=== PATIENT | female | born 1945 | race Two or more races ===

== ENCOUNTER 2021-01-10 15:47 | Inpatient (IN) | payer MEDICARE, OTHER ==
[~2021-01-10] VITALS: Ht 162.6 cm; Wt 54.3 kg
[2021-01-10] MEDS ORDERED: ASPI-889 PO (16:11)
[2021-01-10] MEDS ORDERED: BUPR100T8 PO (16:11)
[2021-01-10] MEDS ORDERED: MIRA25TA PO (16:11)
[2021-01-10] MEDS ORDERED: METO-239 PO (16:11)
[2021-01-10] MEDS ORDERED: SERT25TA PO (16:11)
[2021-01-10] MEDS ORDERED: DONE5TAB7 PO (16:11)
[2021-01-10] MEDS ORDERED: AMLO-186 PO (16:11)
--- NOTE | 2021-01-10 16:31 | NUR ---
NSG NOTE; NEGATIVE COVID TEST FROM 01/07/21 AT [facility] WITH PAPER COPY OF RESULTS IN CHART
[2021-01-10 19:15] VITALS: BP 161/74
--- NOTE | 2021-01-10 19:50 | NUR ---
PT ADMITTED TO RM 107 FOR SBHU 48HR HOLD PENDING COVID RESULTS. PT EXPRESSED FEELINGS OF ANGER WHEN WHEELED INTO ROOM. WHEN THIS NURSE DISCUSSED WHY PT IS HERE AND POC. PT VERBALIZED UNDERSTANDING. PT WAS GIVEN DINNER TRAY AND IS NOW RESTING COMFORTABLY IN BED. WILL CONTINUE TO MONITOR.
[2021-01-10] MEDS: buPROPion SR 100 MG TABLET.SA. PO SCH (20:55)
[2021-01-10] MEDS: METOPROLOL SUCC 24HR ER 25 MG TAB.ER.24H. PO SCH (20:55)
[2021-01-10 22:17] VITALS: BP 92/55
[2021-01-11 05:05] VITALS: BP 128/71
--- NOTE | 2021-01-11 05:22 | EKG ---
[address] [address] Test Date: 2021-01-11 Test Time: 04:57:10 Pat Name: SALLY AGRAWAL Department: Room: [facility] A Gender: F Security Rep: : [id number] Requested By: MARIUSZ EDMOND Order Number: [id number] Reading MD: Measurements Intervals [place] Rate: 61 P: 39 CT: 142 QRS: 37 QRSD: 90 T: 55 QT: 410 QTc: 414 Interpretive Statements SINUS RHYTHM NORMAL ECG RI6.01 No previous ECG available for comparison
[2021-01-11 06:25] LABS: BILIRUBIN,URINE NEG (NEG); CLARITY,URINE CLEAR; COLOR,URINE YELLOW; GLUCOSE,URINE NEG (NEG); NITRITE,URINE NEG (NEG); UROBILINOGEN,URINE 0.2 mg/dL (0.2 mg/dL)
[2021-01-11 06:26] LABS: BACTERIA,URINE FEW /HPF (0-FEW); SQUAMOUS EPITHELIAL CELL,UR MANY /LPF
[2021-01-11 07:16] LABS: HEMATOCRIT 37.5 % (36.0-47.0); HEMOGLOBIN 12.1 g/dL (12.0-15.5); RED BLOOD COUNT 4.35 x10^6/uL (3.50-5.40); RED CELL DISTRIBUTION WIDTH 14.6 % (11.5-14.5); WHITE BLOOD COUNT 4.8 x10^3/uL (4.0-11.0)
[2021-01-11 07:24] LABS: ALBUMIN 2.8 g/dL (3.4-5.0); ALBUMIN/GLOBULIN RATIO 0.8 (1.0-1.7); CALCIUM 9.2 mg/dL (8.5-10.1); CREATININE 1.2 mg/dL (0.6-1.0); GFR 43.9; MAGNESIUM 2.3 mg/dL (1.8-2.4); POTASSIUM 3.7 mmol/L (3.5-5.1); TOTAL BILIRUBIN 0.3 mg/dL (0.2-1.0); TOTAL PROTEIN 6.2 g/dL (6.4-8.2)
[2021-01-11] MEDS: ASPIRIN ENTERIC COATED 81 MG TABLET.DR. PO SCH (08:29)
[2021-01-11] MEDS: SERTRALINE 25 MG TABLET. PO SCH (08:29)
[2021-01-11] MEDS: buPROPion SR 100 MG TABLET.SA. PO SCH ×2 (08:30→20:29)
[2021-01-11] MEDS: MIRABEGRON 25 MG TAB.ER.24H PO SCH (08:30)
[2021-01-11] MEDS: DONEPEZIL HCL 5 MG TABLET. PO SCH (08:30)
[2021-01-11] MEDS: amLODIPine BESYLATE 5 MG TABLET PO SCH (08:30)
[2021-01-11 10:37] VITALS: BP 150/75
[2021-01-11] MEDS ORDERED: OLANZapine 2.5 MG TABLET PO PRN (13:30)
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
[2021-01-11 16:17] VITALS: BP 146/75
--- NOTE | 2021-01-11 17:40 | PN ---
DATE: 01/11/2021 SUBJECTIVE: The patient is resting, slightly propped up in bed, in no apparent distress. She is awake, alert, continued to be confused, paranoid, delusional, at times combative, yelling, but denied any complaint. PHYSICAL EXAMINATION: GENERAL: When I examined her, she was somewhat pale, but no jaundice, cyanosis or thyromegaly. No jugular venous distention or limb edema. VITAL SIGNS: Her heart rate was 78, blood pressure was 150/75, temperature 97.9, respiratory rate was 16, and oxygen saturation was 97%. HEAD, EYES, EARS, NOSE AND THROAT: Showed normocephalic, atraumatic. NECK: Supple. HEART: Showed normal first and second heart sounds. No gallop or murmur. CHEST: Clear to auscultation. No crepitation or rhonchi. ABDOMEN: Slightly distended, soft, nontender. NEUROLOGIC: She is awake, alert, but confused, agitated, paranoid. All her cranial nerves are intact. She moves extremities without difficulty, although she is able to ambulate with assistance. She is apparently a high fall risk. LABORATORY DATA: She has had lab work done, which showed a serum sodium 142, potassium 3.7, chloride 107, bicarbonate 25, anion gap of 10, BUN 27, creatinine is 1.2, estimated GFR was 44 mL per minute, her glucose was 93, calcium was 9.2, magnesium was 2.3. Total bilirubin, AST, ALT, alkaline phosphatase were normal. Total protein 6.2, albumin was 2.8. Her white cell count was 4800, hemoglobin was 12, hematocrit 37, MCV 86 and platelet count 265,000. Her D-dimer was 2.23 mg/dL. Her urinalysis showed the urine was yellow, clear with a pH of 5.5, specific gravity 1.005. The urine was negative for protein, glucose, ketones, blood, nitrite and bilirubin as well as negative for leukocyte esterase, 1-2 rbc's, 1-4 wbc's, and no bacteria. Her COVID-19 by PCR is still pending at the time of this dictation. Her EKG showed that the patient was in sinus rhythm with normal P waves, RI interval, QRS duration and corrected QT interval. In summary, this is a 75-year-old who was referred to [facility] for screening for COVID-19 from [facility] as the patient has been combative towards her family, suspicious, paranoid towards her family, unable to care for herself at home. She has been insisting to go home with increasing confusion, poor intake of meals, irritable, argumentative and cooperative with increasing confusion. Once her COVID-19 test becomes available and if it is negative, the patient will be transferred to [facility] for inpatient psychiatric stabilization. ANGEL JONES MD DR: PHILL/robin JOB#: [id number] / [id number]
[2021-01-11 19:55] VITALS: BP 174/72
[2021-01-11] MEDS: METOPROLOL SUCC 24HR ER 25 MG TAB.ER.24H. PO SCH (20:24)
--- NOTE | 2021-01-12 04:33 | NUR ---
Pt awake and restless through much of the night. Pt continually calling out and throwing legs over bed rails. Staff frequently in room to calm pt and music playing to aid sleep, unsuccessful. Pt believes she is in a stranger's home in [place], demanding to see a phone book and call the police. Pt increasingly agitated with attempts to reorient to hospital and situation. Pt suspicious of staff and not willing to take PRN zydis whole. Pt given PRN zydis dissolved in liquid after much encouragement. Addendum: 01/12/21 at 0608 by RAE LIAO RN PRN Zydis effective. Pt settled down and has been resting with eyes closed for approx. 45 mins.
[2021-01-12] MEDS: SERTRALINE 25 MG TABLET. PO SCH (08:07)
[2021-01-12] MEDS: ASPIRIN ENTERIC COATED 81 MG TABLET.DR. PO SCH (08:07)
[2021-01-12] MEDS: DONEPEZIL HCL 5 MG TABLET. PO SCH (08:07)
[2021-01-12] MEDS: MIRABEGRON 25 MG TAB.ER.24H PO SCH (08:09)
[2021-01-12] MEDS: buPROPion SR 100 MG TABLET.SA. PO SCH (08:09)
[2021-01-12 08:18] VITALS: BP 134/69
[2021-01-12 08:20] VITALS: BP 134/69
[2021-01-12] MEDS: amLODIPine BESYLATE 5 MG TABLET PO SCH (08:20)
--- NOTE | 2021-01-12 11:11 | NUR ---
TEST FOR COVID 19 IS NEGATIVE. NURSING CONSUMER PRODUCT ADVISOR NOTIFIED.
--- NOTE | 2021-01-12 11:49 | NUR ---
PATIENT IS DISCHARGED TO [facility] FOR FURTHER EVALUATION AND TREATMENT. REPORT GIVEN TO YANI WALDEN. PATIENT LEFT ROOM 107 VIA W/C ACCOMP BY LEIDY GRIMM.
[2021-01-12 14:40] LABS: THYROID STIM HORMONE (TSH) 2.738 uIU/mL (0.358-3.740)
== END 2021-01-12 11:45 | DRG 392 ==
LOC: 1 SOUTH 18:45
PROVIDERS: ADMIT Hospitalist; ATTEND Hospitalist
DX: K21.9 Gastro-esophageal reflux disease without esophagitis (principal); E44.0 Moderate protein-calorie malnutrition; F03.90 Unspecified dementia, unspecified severity, without behavioral disturbance, psychotic disturbance, mood disturbance, and anxiety; E78.5 Hyperlipidemia, unspecified; F32.9 Major depressive disorder, single episode, unspecified; F41.9 Anxiety disorder, unspecified; I12.9 Hypertensive chronic kidney disease with stage 1 through stage 4 chronic kidney disease, or unspecified chronic kidney disease; I35.9 Nonrheumatic aortic valve disorder, unspecified; N18.30 Chronic kidney disease, stage 3 unspecified; Z20.822 Contact with and (suspected) exposure to COVID-19; Z80.0 Family history of malignant neoplasm of digestive organs; Z82.3 Family history of stroke; Z82.49 Family history of ischemic heart disease and other diseases of the circulatory system; Z87.891 Personal history of nicotine dependence; Z88.1 Allergy status to other antibiotic agents; Z88.0 Allergy status to penicillin; Z88.8 Allergy status to other drugs, medicaments and biological substances; Z60.2 Problems related to living alone; Z68.20 Body mass index [BMI] 20.0-20.9, adult
CPT/HCPCS: 36415; 80053; 80061; 81001; 82306; 82607; 83036; 83735; 84443; 85027; 85379; 86592; 93005; U0003

== ENCOUNTER 2021-01-12 11:50 | Inpatient (IN) | payer MEDICARE, OTHER ==
[~2021-01-12] VITALS: Ht 162.6 cm; Wt 61.2 kg
[2021-01-12 11:45] VITALS: BP 97/63
--- NOTE | 2021-01-12 11:45 | NUR ---
Admission Note with Justification for Admission to [facility] Patient admitted to [facility] for protective oversight for emergency stabilization of acute psychiatric crisis. Pt admitted from: [facility]/ [address] [place] [address] Mode of arrival: wheelchair Accompanied By: [facility] Staff Precipitating behaviors that initiated intake and admission: combative towards family, suspicious/paranoid towards family, unable to care for self at home, but insists on going home, increased confusion, poor intake of meals, irritable, argumentative, uncooperative Description of failure of out patient attempts at stabilization in previous setting list behavior and medication trials: ER on 01/06/21, donepezil, zoloft, wellbutrin Behaviors and assessment findings upon admission: Pt is angry upon admission because she thought she was going to be discharging home from [address] [place] [address], she does not want to be a patient anymore "Can't I just sign an against medical advice paper?" Pt is oriented to herself and year. She believes she is at [facility] and she says she is in the hospital because "someone is an idiot." She is cooperative with assessment and denies pain at this time. Will continue to monitor. Plan: Admit for protective oversight for adjustment and stabilization of medications, behaviors and mood. Intense treatment regimen including groups, medication adjustments, therapy, consistent regimen for ADL's, self care, and sleep hygiene. Daily monitoring by Inpatient staff, Psychiatry, and Medical Physician.
[~2021-01-12 11:50] MED LIST: AMLO-186 PO; ASPI-889 PO; BUPR100T8 PO; DONE5TAB7 PO; METO-239 PO; MIRA50TA PO; SERT25TA PO
[2021-01-12] MEDS ORDERED: MAGNESIUM HYDROXIDE 2,400 MG/30 ML ORAL.SUSP. PO PRN (15:30)
[2021-01-12] MEDS ORDERED: METHYL SALICYLATE/MENTHOL TOPICAL OINTMENT 57GM TUBE. TP PRN (15:30)
[2021-01-12] MEDS ORDERED: ACETAMINOPHEN 325 MG TABLET PO PRN (15:30)
[2021-01-12] MEDS ORDERED: MAG HYDROX/AL HYDROX/SIMETH 30 ML ORAL.SUSP PO PRN (15:30)
[2021-01-12 16:30] VITALS: BP 129/72
--- NOTE | 2021-01-12 21:03 | PDOC ---
Exam Note: Jose R Note: Please also refer to the separate dictated note~for this date of service dictated separately.~Patient seen individually. Discussed the patient with Nursing staff reviewed the chart.~Reviewed interim history and current functioning. Reviewed vital signs,~Labs/ Radiology~and current medications noted below. Continue current treatment with the changes noted in the dictated addendum note Assessment: Vital Signs/I&O: Vital Signs Date Time Temp Pulse Resp B/P (MAP) Pulse Ox O2 Delivery O2 Flow Rate FiO2 01/12/21 16:30 98.0 76 18 129/72 (91) 94 Current Medications: Meds: Current Medications Medications (Trade) Dose Ordered Sig/Lita Route PRN Reason Start Time Stop Time Status Last Admin Dose Admin Amlodipine Besylate (Norvasc) 5 mg DAILY PO 01/13/21 09:00 Aspirin (Aspirin Enteric Coated) 81 mg DAILY PO 01/13/21 09:00 Bupropion HCl (Wellbutrin Sr) 100 mg DAILY PO 01/13/21 09:00 Donepezil HCl (Aricept) 5 mg DAILY PO 01/13/21 09:00 Metoprolol Succinate (Toprol Xl) 12.5 mg HS PO 01/12/21 21:00 Sertraline HCl (Zoloft) 25 mg DAILY PO 01/13/21 09:00 Mirabegron (Myrbetriq) 50 mg DAILY PO 01/13/21 09:00 Acetaminophen (Tylenol) 650 mg PRN Q6HRS PRN PO MILD PAIN / TEMP > 100.3'F 01/12/21 15:30 Multi-Ingredient Ointment (Analgesic [place]) 1 mercedez PRN QID PRN TP MUSCLE PAIN 01/12/21 15:30 Al Hydroxide/Mg Hydroxide (Mylanta Plus Xs) 15 ml PRN AFTMEALHC PRN PO DYSPEPSIA 01/12/21 15:30 Magnesium Hydroxide (Milk Of Magnesia) 2,400 mg PRN QHS PRN PO CONSTIPATION 01/12/21 15:30 I have reviewed the current psychotropics carefully including drug interactions. Risk benefit ratio favors no change other than as noted in my dictated progress note. SHIRLEY FRANKLIN MD Jan 12, 2021 21:03
[2021-01-12] MEDS: METOPROLOL SUCC 24HR ER 25 MG TAB.ER.24H. PO SCH (21:33)
--- NOTE | 2021-01-12 22:15 | HP ---
ADMIT DATE: 01/12/2021 ADMISSION HISTORY/EVALUATION IDENTIFYING DATA: The patient is a 75-year-old female referred to us from [facility] where she presented from home and admitted by her son, Santos, who is her DPOA. The patient had been combative towards the family. She is suspicious and paranoid towards family who have been unable to take care of her. Even while at home, she has been insisting that she wants to go home and has had increased confusion, poor intake of meals, irritable, argumentative, uncooperative. She was seen at [facility] by Dr. Baker, psychiatrist, who initiated her power of trade mark attorney and recommended inpatient psychiatric stabilization because of behaviors that are dangerous, unmanageable, out of control and had failed outpatient psychiatric interventions. CHIEF COMPLAINT: "Oh, the year. The year is 1980. 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 She has been residing at home with her family recently getting more paranoid, agitated, aggressive, disruptive and unmanageable. She has had sleep and appetite changes. No active suicidal or homicidal ideation. PAST PSYCHIATRIC HISTORY: As above. MEDICAL HISTORY: Positive for hypertension, hyperlipidemia, GERD, chronic kidney disease stage 3, kyphosis. ALLERGIES: CEPHALOSPORIN, IODINE, PROVIDONE, KEFLEX, LOVASTATIN, AMOXICILLIN. ACCU-CHEKS: None. CODE STATUS: DNR. DIET: Regular. Takes medications whole. Ambulates with walker. CURRENT PSYCHOTROPICS: Wellbutrin-SR 100 mg a day, Aricept 5 mg a day, Zoloft 25 mg a day. FAMILY HISTORY: Noncontributory. SOCIAL HISTORY: No history of alcohol, drug abuse, physical, sexual or elder abuse. She is not known to be a perpetrator. REACTION TO HOSPITALIZATION: The patient oblivious of surroundings. ASSETS: Supportive family. REVIEW OF SYSTEMS: No CV, , pulmonary, eye, ENT system symptoms on review. Ambulation impaired with walker. She remains on a regular diet. MENTAL STATUS EXAMINATION: The patient is oriented to herself. Insight, judgment, recent and remote memory, attention, concentration, fund of knowledge poor, consistent with her diagnoses. IMPRESSION: Major neurocognitive disorder, Alzheimer, vascular with delusion, depression, behavioral disturbance; anxiety disorder, unspecified; impulse control disorder, unspecified. Rest as above. PLAN: Admit to Geropsychiatry Unit at [facility]. I will see the patient daily individually from a psychiatric standpoint. Medical followup with Dr. Boggs/Dr. Lau. Continue the patient on her current psychotropics. Observe baseline, adjust as clinically indicated. Estimated length of stay 10-12 days. DISPOSITION: Plans possible halfway placement. SHIRLEY FRANKLIN MD DR: TRE/robin JOB#: [id number] / [id number]
--- NOTE | 2021-01-13 00:34 | NUR ---
Nursing Note The patient was located in her room laying in bed sleeping when approached for her medication and assessment. The patient was drowsy during her assessment and was only able to answer name. The patient took her medication whole. The patient is currently sleeping.
[2021-01-13 06:10] VITALS: BP 128/68
[2021-01-13 06:30] LABS: BASO # 0.1 x10^3/uL (0.0-0.2); BASO % 1 % (0-3); EOS # 0.1 x10^3/uL (0.0-0.7); EOS % 1 % (0-3); HEMOGLOBIN 13.2 g/dL (12.0-15.5); LYMPH # 1.3 x10^3/uL (1.0-4.8); LYMPH % 26 % (24-48); MEAN CORPUSCULAR HEMOGLOBIN 28 pg (25-35); MEAN CORPUSCULAR HGB CONC 32 g/dL (31-37); MEAN CORPUSCULAR VOLUME 87 fL (79-100); MONO # 0.4 x10^3/uL (0.0-1.1); MONO % 7 % (0-9); NEUT # 3.2 x10^3uL (1.8-7.7); NEUT % 65 % (31-73); PLATELET COUNT 308 x10^3/uL (140-400); RED BLOOD COUNT 4.72 x10^6/uL (3.50-5.40); RED CELL DISTRIBUTION WIDTH 14.5 % (11.5-14.5)
[2021-01-13 06:54] LABS: ALBUMIN 3.3 g/dL (3.4-5.0); ALBUMIN/GLOBULIN RATIO 0.9 (1.0-1.7); CALCIUM 9.5 mg/dL (8.5-10.1); CREATININE 1.5 mg/dL (0.6-1.0); GFR 33.9; POTASSIUM 4.1 mmol/L (3.5-5.1); TOTAL BILIRUBIN 0.3 mg/dL (0.2-1.0); TOTAL PROTEIN 7.1 g/dL (6.4-8.2)
[2021-01-13] MEDS: DONEPEZIL HCL 5 MG TABLET. PO SCH (08:13)
[2021-01-13] MEDS: amLODIPine BESYLATE 5 MG TABLET PO SCH (08:13)
[2021-01-13] MEDS: ASPIRIN ENTERIC COATED 81 MG TABLET.DR. PO SCH (08:13)
[2021-01-13] MEDS: MIRABEGRON 25 MG TAB.ER.24H PO SCH (08:13)
[2021-01-13] MEDS ORDERED: buPROPion SR 100 MG TABLET.SA. PO SCH (09:00)
[2021-01-13] MEDS ORDERED: SERTRALINE 25 MG TABLET. PO SCH (09:00)
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
[2021-01-13 11:09] LABS: THYROXINE 7.4 ug/dL (4.5-12.0)
--- NOTE | 2021-01-13 11:45 | NUR ---
SW contacted pt son Johnathan in attempts to discuss his wishes for pt to not be on psychiatric medications and why the admission. Johnathan, like his brother, reports that they had initially requested rehab for pt in order to get pt physically stronger and maintain at home. However, the referral ended up at [place]. And while his brother agreed to the admission, Johnathan did not see fit as he does not want pt placed on any psychotropic medications. SW questioned what his goal was, as if pt was not allowed to be stopped or started on medications, then pt would need to discharge [facility]. Pt questioned what meds pt was on and SW reported: Wellbutrin XL, Zoloft and Aricept. Pt son is adamant that pt was not on these medication and SW assured him based off the med list received, pt came in on these medications and all the psychiatrist did was continue them. Pt son then placed SW on hold and conferenced in pt pharmacy to question the medication pt is currently on. The pharmacist confirmed that pt was on Wellbutrin XL, Zoloft and Aricept. Pt son reports not being aware of the Zoloft and the pharmacist reported that it was filled 11/21/20 and 12/16/20. Pt son believes that when pt behaviors started it was in November and the culprit was the Zoloft. SW explained that with Dementia, if she was having trouble prior to, the Zoloft should be able to help calm pt behaviors down and would just need a potential dosage adjustment. However, in Johnathan's mind, if pt behaviors increased and the Zoloft was the new culprit, the Zoloft needed to be stopped. "If you were on Augmentin and then ate dinner one day, with a sudden onset of upset stomach, wouldn't you think it would be the Augmentin". SW answered back "no, it could be food poisoning or a sudden onset of a stomach bug". Pt son questioned how long it took to get Zoloft out of pt system. SW explained being on the lowest dose of Zoloft not long. Pt son questioned if pt needed to be watched coming off the Zoloft and SW explained not necessarily in which pt son felt like SW made it seem no big deal that the Zoloft was being stopped without pt being "watched" stating "That's a big medication change". SW then responded "she was started on Zoloft in November, on an outpt basis. If she went to her doctor last month or a few months from now and wanted off of it, they wouldn't admit her to a psych facility to stop it. Medications are stopped and started on an outpt basis all the time. Discharging her today, tomorrow or whenever, would be no different". LESLIE explained to pt son that at the end of the day, if he wasn't going to allow the "freedom" of allowing the team to start specific medications that could stabilize pt behaviors and make her appropriate enough, NOT zombie-state, to remain at home, then there was no need for pt to be here. For the purposes of Medicare, pt is burning days that she can't afford to burn and essentially it will be a disservice for her to remain on the unit when she isn't able to participate in the program as designed. LESLIE questioned when he would be able to pick pt up. Pt son reports that they just got a caregiver approved and needed to sign paperwork; therefore, either he or his brother will pick pt up on Saturday. LESLIE will notify the psychiatrist and nursing staff in preparation and asked the son to call with a picker/puller time once he speaks to his brother and makes those arrangements.
--- NOTE | 2021-01-13 13:20 | NUR ---
ACTIVITY THERAPY ASSESSMENT Completed based on observation and interview. Pt. was in her room, in bed, with the lights off and curtains closed, awake and calm. CEMENT STORAGE WORKER greeted Pt. and Pt. asked if CEMENT STORAGE WORKER worked here and went on about walking her dog, taking her to the Vet but then somehow got here and was worried her dog was being mistreated and was going to be put down without her knowing. Pt. seemed to respond well when CEMENT STORAGE WORKER reassured her she was there to help her. Pt. went on to talk about frustrations with staff here, claimed she was going to have york left on her arm from them. Pt. was tearful off an on during assessment. She threatened to go after people if they put her dog down and thought some staff here needed to be fired. She questioned where her purse was and before too long, she looped back to the vet/ dog, staff interaction and finally her purse, again. After more reassurance, Pt. was about to answer some assessment questions. She said she was "68 years old" and her date was "1945." She shared she was born in [place], [place] and grew up in [place]. 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 She talked about having two sons, Johnathan and Mohan. She said she spends time watching a little tv, playing with her dog "Tata", walking, reading (requested [employer]), and enjoys country/western and hindu music. She named one old friend, Irina Huang, but hadn't talked to her in years. Pt. was really concerned that no one would believe her about the dog and the issues with the staff, thought staff would just gang up on her and come up with a story. CEMENT STORAGE WORKER offered more reassurance to which Pt. responded well. CEMENT STORAGE WORKER offered a couple magazines and Pt. was able to pick a a few to keep in her room. The interview ended on a calm and peaceful note where both CEMENT STORAGE WORKER and Pt. thanked the other. Initial goal aimed to increase engagement and relaxation: Pt. will participate in at least three Activity Therapy groups per week.
--- NOTE | 2021-01-13 13:23 | TX PLAN ---
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 Additional Admission Comments: According to the intake, pt is combative towards family, suspicious, paranoid towards family, unable to care for self at home but insists on going home, increased confusion, poor intake of meals, irritable, argumentative, uncooperative Problems Active Problems: irritable uncooperative with staff Inactive Problems: Medication compliant Pt Strengths/Limitations Ability for [place]: Poor Cognitive Functioning/Ability: Fair Communication Skills/Ability: Fair Financial Resources: Fair Insight/Judgement: Poor Intellectual Ability: Fair Physical Health: Fair Social Skills: Fair Stability in Family: Fair Stability in School/Work: Poor Verbal Skills: Fair Discharge Criteria Discharge Criteria: No need for close observ., Adequate arrangements @DC, Improved behavior, Improved mood/thought Preliminary Discharge Plan Preliminary DC Plan: Current Living Arrange., Home Special Precautions Fall Risk: Moderate Initial D/C Plan Pt to discharge home with private duty and community resources Identified Discharge Needs: Psychiatry Currently Utilized Resources Currently Utilized Resources/P: Primary Care Physician Identified Problems/Hx/Goals Objectives/Short-Term Goals Short Term Goals: Dec. Outbursts, Dec. Symp. Depression, Medication Stabilization, Promote Coping Skill Short Term Goals in Patient's: I need to get home Interventions/Frequency Staff Interventions/Frequency&: Psychiatrist to assess pt at least 3x per week for medication management. Social Work to asses pt at least 2x per week for identification of barriers to care and discharge planning. Nursing to monitor medication effects, behavioral management and completion of 15 minute checks. Encourage participation in group activities (if applicable) or 1:1 engagement based of Activity Dept goals. 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 Son does not wish for pt to start on any psychotropic medications. Treatment Plan Explained Patient/Data Management Manager had this treatment plan explained to him/her as indicated by the signature below and has been given the opportunity to ask questions and make suggestions: Date: Patient/Data Management Manager Signature: Patient/Data Management Manager Decline: No (Pt family is involved in pt care.) DEIRDRE VERGARA Jan 13, 2021 13:23
--- NOTE | 2021-01-13 14:03 | NUR ---
[facility] Social Work Discharge Planning Form Patient Name SALLY AGRAWAL Admit Date: 12 January 2021 DISCHARGE PLAN Discharge Destination: Pt to return home with private duty services Care Assessment: N/A Level II Assessment: N/A Transportation: Pt sons to make arrangements to pick pt up. Instructed to call prior to picking pt up with a time. Special Instructions/Notes: Please fax discharge orders, discharge medication list and discharge summary to the fax numbers listed below. DISCHARGE TO HOME: Address: [address] [place] [address] [place]; [place] [address] Responsible Republican: Santos Mann Beck Pharmacy: [facility] Contact Information: [address] [place] [address] [address] Psychiatrist/Mental Health Follow Up: None Primary Care Follow Up: Chelita Castle APRN Contact Information: [address] [place] [address] Appointment: Saturday12/30/20 @ 1120AM
[2021-01-13 15:33] VITALS: BP 117/69
--- NOTE | 2021-01-13 16:43 | NUR ---
Pt up in wc for meals and groups. Pt compliant with meds. Pt irritable in afternoon regarding wanting to go home and care for dog. States she has been gone x 2 weeks. Pt refused to have CT head. Nurse spoke to pt son at length regarding her stay here. Stated he was misinformed about the purpose of the pt stay here. Son plans to take pt on home Saturday.
[2021-01-13] MEDS ORDERED: CHOLECALCIFEROL (VITAMIN D3) 50,000 UNIT CAPSULE PO SCH (18:45)
--- NOTE | 2021-01-13 19:31 | CONS ---
DATE OF CONSULTATION: 01/13/2021 REASON FOR CONSULTATION: Medical management. HISTORY OF PRESENT ILLNESS: The patient is a 75-year-old female patient who was admitted originally as a transfer from [facility]. She has been combative towards her family, suspicious, paranoid towards her family. The patient is unable to care for herself at home, but insisted on going home with increasing confusion, poor oral intake of her meals, irritable, argumentative and uncooperative. Apparently, the patient has fallen, was seen in the Emergency Room of [facility] where she was brought in by her son. She recently was in a shelter facility, but was taken out of it, the reason for that is not clear. In the Emergency Room, she was found to have an unsafe disposition and likely cannot care of herself, has a dog at home that she take care of that and that she is worried about. Sshe is alert, oriented to person and place and aware of that if she does go home, she could fall and hit her head, which would be life threatening. However, she is insisting on going home. She was admitted to Med/Surg Unit and once out at [facility] and was screened for COVID and once that came back negative, she was [facility] for inpatient psychiatric stabilization. The patient is extremely confused, paranoid and delusional. PAST MEDICAL HISTORY: Significant for hypertension, hyperlipidemia, gastroesophageal reflux disease, stage 3 chronic kidney disease. She does have also aortic valve disease, has had an echocardiogram done on 03/13/2017 that showed that she has normal left ventricular size and function. Left ventricular ejection fraction at that time was 55-60%. 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 PAST SURGICAL HISTORY: Significant for appendectomy, bladder tie up, EGD, colonoscopy, open reduction and internal fixation, left ankle fracture, tonsillectomy and ureteroscopy. ALLERGIES: She is allergic to CEPHALOSPORIN, IODINE, KEFLEX, LOVASTATIN, PENICILLIN, AMOXICILLIN AND POVIDONE-IODINE. FAMILY HISTORY: Positive for stroke in her mother, colon cancer in her maternal grandmother and heart disease in a paternal grandmother. Her mother at the age of 83. Father at the age of 70. Her sister is still alive. SOCIAL HISTORY: She is a former smoker, quit in 07/26/2017. She never used smokeless tobacco. She does not drink alcohol. PHYSICAL EXAMINATION: GENERAL: On examining her, she looked well and was clearly in no apparent respiratory distress, pale, somewhat cachectic, but no jaundice or cyanosis. No lymphadenopathy, no thyromegaly. No jugular venous distension. No lower limb edema. VITAL SIGNS: Her heart rate was 63, blood pressure was 117/69, temperature 97.6, respiratory rate was 16, and oxygen saturation was 98%. HEAD, EYES, EARS, NOSE AND THROAT: Showed she is normocephalic, atraumatic. NECK: Supple. HEART: Normal first and second heart sounds. No gallop, rub or murmur. CHEST: Clear to auscultation. No crepitation or rhonchi. ABDOMEN: Distended, soft, nontender. NEUROLOGIC: She apparently moved extremities without difficulty and she ambulates with assistance. LABORATORY DATA: She has had lab work done which showed a white cell count 5000, hemoglobin 13, hematocrit 41, MCV 87, and platelet count 308,000. Her chemistry showed a serum sodium 146, potassium 4.1, chloride 110, bicarbonate 26, anion gap of 10, BUN 40, creatinine 1.5, estimated GFR was 33 mL per minute. Her glucose was 99, calcium was 9.5. Total bilirubin, AST, ALT, alkaline phosphatase were normal. Total protein was 7.1, albumin was 3.3. Her total T4, and total T3 are normal. Her serum triglycerides were 106, total cholesterol 200, LDL cholesterol 127, VLDL was 21, HDL was 52 and the ratio was 3. Her vitamin B12 was 400, 25-hydroxy vitamin D was 11.4. TSH was 2.738. Her D-dimer was 2.223. Urinalysis essentially unremarkable and her coronavirus by PCR was not detectable. IMPRESSION: In summary, this is a 75-year-old female patient, who is here for inpatient psychiatric stabilization based on account of being very combative towards family, suspicious and paranoid towards the family and unable to take care of herself at home. Medically, she has multiple medical problems including: A. Hypertension. B. Hyperlipidemia. C. Gastroesophageal reflux disease. D. Chronic kidney disease. E. Vitamin D deficiency. PLAN: My plan is to replenish her vitamin D. We will continue in the meanwhile with all her current medication and obviously monitor all her lab work and make any necessary recommendation. ANGEL JONES MD DR: PHILL/robin JOB#: [id number] / [id number]
[2021-01-13] MEDS: METOPROLOL SUCC 24HR ER 25 MG TAB.ER.24H. PO SCH (20:42)
--- NOTE | 2021-01-13 21:07 | PDOC ---
Exam Note: Jose R Note: Please also refer to the separate dictated note~for this date of service dictated separately.~Patient seen individually. Discussed the patient with Nursing staff reviewed the chart.~Reviewed interim history and current functioning. Reviewed vital signs,~Labs/ Radiology~and current medications noted below. Continue current treatment with the changes noted in the dictated addendum note Assessment: Vital Signs/I&O: Vital Signs Date Time Temp Pulse Resp B/P (MAP) Pulse Ox O2 Delivery O2 Flow Rate FiO2 01/13/21 15:33 97.6 63 16 117/69 (85) 98 Room Air I & O 01/12/21 01/12/21 01/13/21 15:00 23:00 07:00 Intake Total 480 ml Balance 480 ml Labs: Laboratory Tests Test 01/13/21 06:08 White Blood Count 5.0 x10^3/uL (4.0-11.0) Red Blood Count 4.72 x10^6/uL (3.50-5.40) Hemoglobin 13.2 g/dL (12.0-15.5) Hematocrit 41.0 % (36.0-47.0) Mean Corpuscular Volume 87 fL (79-100) Mean Corpuscular Hemoglobin 28 pg (25-35) Mean Corpuscular Hemoglobin Concent 32 g/dL (31-37) Red Cell Distribution Width 14.5 % (11.5-14.5) Platelet Count 308 x10^3/uL (140-400) Neutrophils (%) (Auto) 65 % (31-73) Lymphocytes (%) (Auto) 26 % (24-48) Monocytes (%) (Auto) 7 % (0-9) Eosinophils (%) (Auto) 1 % (0-3) Basophils (%) (Auto) 1 % (0-3) Neutrophils # (Auto) 3.2 x10^3uL (1.8-7.7) Lymphocytes # (Auto) 1.3 x10^3/uL (1.0-4.8) Monocytes # (Auto) 0.4 x10^3/uL (0.0-1.1) Eosinophils # (Auto) 0.1 x10^3/uL (0.0-0.7) Basophils # (Auto) 0.1 x10^3/uL (0.0-0.2) Sodium Level 146 mmol/L (136-145) H Potassium Level 4.1 mmol/L (3.5-5.1) Chloride Level 110 mmol/L (98-107) H Carbon Dioxide Level 26 mmol/L (21-32) Anion Gap 10 (6-14) Blood Urea Nitrogen 40 mg/dL (7-20) H Creatinine 1.5 mg/dL (0.6-1.0) H Estimated GFR (Cockcroft-Gault) 33.9 BUN/Creatinine Ratio 27 (6-20) H Glucose Level 99 mg/dL (70-99) Calcium Level 9.5 mg/dL (8.5-10.1) Iron Level 49 ug/dL (50-170) L Total Iron Binding Capacity 342 ug/dL (250-450) Iron Saturation 14 % (15-34) L Total Bilirubin 0.3 mg/dL (0.2-1.0) Aspartate Amino Transferase (AST) 22 U/L (15-37) Alanine Aminotransferase (ALT) 30 U/L (14-59) Alkaline Phosphatase 118 U/L (46-116) H Total Protein 7.1 g/dL (6.4-8.2) Albumin 3.3 g/dL (3.4-5.0) L Albumin/Globulin Ratio 0.9 (1.0-1.7) L Thyroxine (T4) 7.4 ug/dL (4.5-12.0) Total Triiodothyronine (TT3) 80 ng/dL (71-180) Current Medications: Meds: Current Medications Medications (Trade) Dose Ordered Sig/Lita Route PRN Reason Start Time Stop Time Status Last Admin Dose Admin Amlodipine Besylate (Norvasc) 5 mg DAILY PO 01/13/21 09:00 01/13/21 08:13 Aspirin (Aspirin Enteric Coated) 81 mg DAILY PO 01/13/21 09:00 01/13/21 08:13 Bupropion HCl (Wellbutrin Sr) 100 mg DAILY PO 01/13/21 09:00 01/13/21 12:05 DC 01/13/21 08:13 Donepezil HCl (Aricept) 5 mg DAILY PO 01/13/21 09:00 01/13/21 08:13 Sertraline HCl (Zoloft) 25 mg DAILY PO 01/13/21 09:00 01/13/21 12:05 DC 01/13/21 08:13 Mirabegron (Myrbetriq) 50 mg DAILY PO 01/13/21 09:00 01/13/21 08:13 I have reviewed the current psychotropics carefully including drug interactions. Risk benefit ratio favors no change other than as noted in my dictated progress note. Diagnosis: Problems: (1) Impulse control disorder, unspecified (2) Major neurocognitive disorder (3) Dementia in Alzheimer's disease with delusions (4) Dementia in Alzheimer's disease with depression (5) Dementia of the Alzheimer's type with early onset with behavioral disturbance (6) Dementia, vascular, with delusions (7) Dementia, vascular, with depression (8) Anxiety disorder, unspecified SHIRLEY FRANKLIN MD Jan 13, 2021 21:07
--- NOTE | 2021-01-13 23:04 | NUR ---
Patient is located in the day room on assumption of care. She is disorganized, confused. Compliant with assessments and medications taken whole. No agitation. Patient denies any pain or discomfort. She appears to be sleeping comfortably at present time. Will continue to monitor.
[2021-01-14 06:18] VITALS: BP 121/72
[2021-01-14] MEDS: ASPIRIN ENTERIC COATED 81 MG TABLET.DR. PO SCH (08:11)
[2021-01-14] MEDS: MIRABEGRON 25 MG TAB.ER.24H PO SCH (08:12)
[2021-01-14] MEDS: DONEPEZIL HCL 5 MG TABLET. PO SCH (08:12)
[2021-01-14] MEDS: amLODIPine BESYLATE 5 MG TABLET PO SCH (08:12)
[2021-01-14] MEDS: CHOLECALCIFEROL (VITAMIN D3) 50,000 UNIT CAPSULE PO SCH (08:14)
[2021-01-14] MEDS: buPROPion SR 100 MG TABLET.SA. PO SCH (08:15)
[2021-01-14] MEDS ORDERED: SERTRALINE 25 MG TABLET. PO SCH ×2 (09:00)
--- NOTE | 2021-01-14 09:24 | RAD ---
EXAM: Head CT without contrast. HISTORY: Status changes. Confusion. TECHNIQUE: Computed tomographic images of the head were obtained without contrast. *One or more of the following individualized dose reduction techniques were utilized for this examina tion: 1. Automated exposure control. 2. Adjustment of the mA and/or kV according to patient size. 3. Use of iterative reconstruction technique. COMPARISON: None. FINDINGS: There is no acute or subacute extra-axial or intraparenchymal hemorrhage. There is no mass effect or midline shift. There is no hydrocephalus. There are areas of decreased attenuation within the cerebral white matter, nonspecific and likely rel ated to chronic small vessel disease. There is cerebral volume loss. There is asymmetry in the size o f the right greater than left temporal horns of the lateral ventricles due to suspected asymmetric te mporal lobe volume loss. The visualized portions of the orbits, paranasal sinuses and mastoid air cells are unremarkable. No s uspicious calvarial lesion is seen. IMPRESSION: 1. No acute intracranial finding. Note is made that MRI is more sensitive for acute infarction. 2. Bilateral cerebral white matter changes, likely due to chronic small vessel disease. 3. Cerebral volume loss. Electronically signed by: Marisa Matthews MD (01/14/2021 9:22 AM) [id number]
[2021-01-14 16:03] VITALS: BP 137/82
--- NOTE | 2021-01-14 16:49 | NUR ---
Pt up in wc for meals. CT head done in am. No acute changes. Has been pleasant and forgetful at times. Compliant with meds and cares. Pt spoke with son on phone. Visit went well.
[2021-01-14] MEDS: METOPROLOL SUCC 24HR ER 25 MG TAB.ER.24H. PO SCH (20:22)
--- NOTE | 2021-01-14 20:55 | PDOC ---
Exam Note: Jose R Note: Please also refer to the separate dictated note~for this date of service dictated separately.~Patient seen individually. Discussed the patient with Nursing staff reviewed the chart.~Reviewed interim history and current functioning. Reviewed vital signs,~Labs/ Radiology~and current medications noted below. Continue current treatment with the changes noted in the dictated addendum note Assessment: Vital Signs/I&O: Vital Signs Date Time Temp Pulse Resp B/P (MAP) Pulse Ox O2 Delivery O2 Flow Rate FiO2 01/14/21 20:22 99 137/82 01/14/21 16:03 97.6 18 98 01/14/21 06:18 Room Air I & O 01/13/21 01/13/21 01/14/21 15:00 23:00 07:00 Intake Total 565 ml 480 ml Balance 565 ml 480 ml Current Medications: Meds: Current Medications Medications (Trade) Dose Ordered Sig/Lita Route PRN Reason Start Time Stop Time Status Last Admin Dose Admin Bupropion HCl (Wellbutrin Sr) 100 mg DAILY PO 01/14/21 09:00 01/14/21 08:15 Vitamin D (Vitamin D3) 50,000 unit WEEKLY PO 01/14/21 09:00 01/14/21 08:14 I have reviewed the current psychotropics carefully including drug interactions. Risk benefit ratio favors no change other than as noted in my dictated progress note. Diagnosis: Problems: (1) Impulse control disorder, unspecified (2) Anxiety disorder, unspecified (3) Dementia, vascular, with depression (4) Dementia, vascular, with delusions (5) Dementia in Alzheimer's disease with depression (6) Dementia in Alzheimer's disease with delusions (7) Dementia of the Alzheimer's type with early onset with behavioral disturbance (8) Major neurocognitive disorder SHIRLEY FRANKLIN MD Jan 14, 2021 20:55
[2021-01-14] MEDS ORDERED: METH57CR17 TP (23:17)
[2021-01-14] MEDS ORDERED: ACET325T21 PO (23:18)
[2021-01-14] MEDS ORDERED: MAG-124 PO (23:20)
[2021-01-14] MEDS ORDERED: MAGN24003 PO (23:22)
[2021-01-14] MEDS ORDERED: CHOL500021 PO (23:23)
[2021-01-15 06:21] VITALS: BP 130/78
[2021-01-15] MEDS: DONEPEZIL HCL 5 MG TABLET. PO SCH (07:52)
[2021-01-15] MEDS: amLODIPine BESYLATE 5 MG TABLET PO SCH (07:52)
[2021-01-15] MEDS: ASPIRIN ENTERIC COATED 81 MG TABLET.DR. PO SCH (07:52)
[2021-01-15] MEDS: buPROPion SR 100 MG TABLET.SA. PO SCH (07:52)
[2021-01-15] MEDS: MIRABEGRON 25 MG TAB.ER.24H PO SCH (07:53)
--- NOTE | 2021-01-15 08:29 | PDOC ---
Exam Note: Jose R Note: This note is a late entry for 01/13/2021 covers elements not covered in my initial note. Subjective: The patient was reviewed in the morning of 01/13/2021 for a treatment team meeting with Beth Bowling, social work mswVaishnavi RN, discussed and reviewed the chart. We reviewed the patients history, diagnoses. Her sons desire not to make any changes in her psychotropics and stop the Zoloft. Continue Wellbutrin. The patient slept 8 hours previous night. Review of Systems: No CV, , pulmonary, eye system symptoms on review. Ambulation impaired in wheelchair. Mental Status Exam: The patient is oriented herself and situation, oriented to the year. Speech is coherent, has some latency. Abstraction is fair. Computation is impaired. Language function is intact. No suicidal or homicidal ideation. Laboratory Data: Reviewed. Impression: Major neurocognitive disorder Alzheimer vascular with delusion, depression, behavioral disturbance. Anxiety disorder unspecified. Major depressive disorder. Plan: No change from initial note. We will check CT head. Make further adjustments as clinically indicated. Assessment: Vital Signs/I&O: Vital Signs Date Time Temp Pulse Resp B/P (MAP) Pulse Ox O2 Delivery O2 Flow Rate FiO2 01/15/21 07:52 90 130/78 01/15/21 06:21 98.1 14 96 01/14/21 06:18 Room Air I & O 01/14/21 01/14/21 01/15/21 15:00 23:00 07:00 Intake Total 600 ml 480 ml Balance 600 ml 480 ml Current Medications: Meds: Current Medications Medications (Trade) Dose Ordered Sig/Lita Route PRN Reason Start Time Stop Time Status Last Admin Dose Admin Amlodipine Besylate (Norvasc) 5 mg DAILY PO 01/13/21 09:00 01/15/21 07:52 Aspirin (Aspirin Enteric Coated) 81 mg DAILY PO 01/13/21 09:00 01/15/21 07:52 Bupropion HCl (Wellbutrin Sr) 100 mg DAILY PO 01/13/21 09:00 01/13/21 12:05 DC 01/13/21 08:13 Donepezil HCl (Aricept) 5 mg DAILY PO 01/13/21 09:00 01/15/21 07:52 Metoprolol Succinate (Toprol Xl) 12.5 mg HS PO 01/12/21 21:00 01/14/21 20:22 Sertraline HCl (Zoloft) 25 mg DAILY PO 01/13/21 09:00 01/13/21 12:05 DC 01/13/21 08:13 Mirabegron (Myrbetriq) 50 mg DAILY PO 01/13/21 09:00 01/15/21 07:53 Acetaminophen (Tylenol) 650 mg PRN Q6HRS PRN PO MILD PAIN / TEMP > 100.3'F 01/12/21 15:30 Multi-Ingredient Ointment (Analgesic [place]) 1 mercedez PRN QID PRN TP MUSCLE PAIN 01/12/21 15:30 Al Hydroxide/Mg Hydroxide (Mylanta Plus Xs) 15 ml PRN AFTMEALHC PRN PO DYSPEPSIA 01/12/21 15:30 Magnesium Hydroxide (Milk Of Magnesia) 2,400 mg PRN QHS PRN PO CONSTIPATION 01/12/21 15:30 Sertraline HCl (Zoloft) 50 mg DAILY PO 01/14/21 09:00 01/13/21 12:10 DC Sertraline HCl (Zoloft) 25 mg DAILY PO 01/14/21 09:00 01/13/21 12:16 DC Bupropion HCl (Wellbutrin Sr) 100 mg DAILY PO 01/14/21 09:00 01/15/21 07:52 Vitamin D (Vitamin D3) 50,000 unit WEEKLY PO 01/13/21 18:45 01/13/21 19:31 DC Vitamin D (Vitamin D3) 50,000 unit WEEKLY PO 01/14/21 09:00 01/14/21 08:14 Current Medications Medications (Trade) Dose Ordered Sig/Lita Route PRN Reason Start Time Stop Time Status Last Admin Dose Admin Bupropion HCl (Wellbutrin Sr) 100 mg DAILY PO 01/14/21 09:00 01/15/21 07:52 Vitamin D (Vitamin D3) 50,000 unit WEEKLY PO 01/14/21 09:00 01/14/21 08:14 I have reviewed the current psychotropics carefully including drug interactions. Risk benefit ratio favors no change other than as noted in my dictated progress note. Diagnosis: Problems: (1) Impulse control disorder, unspecified (2) Anxiety disorder, unspecified (3) Dementia, vascular, with depression (4) Dementia, vascular, with delusions (5) Dementia in Alzheimer's disease with depression (6) Dementia in Alzheimer's disease with delusions (7) Dementia of the Alzheimer's type with early onset with behavioral disturbance (8) Major neurocognitive disorder SHIRLEY FRANKLIN MD Jan 15, 2021 08:29
--- NOTE | 2021-01-15 08:43 | PDOC ---
Exam Note: Jose R Note: This note is a late entry for 01/14/2021 covers elements not covered in my initial note. Subjective: The patient was seen individually in the evening of 01/14/2021 with Vaishnavi WALDEN, discussed and reviewed the chart. The patient slept 6-1/4 hours previous night. She has been more lucid today and this was very evident as I met with her in the evening. CT head shows some microvascular changes. No acute changes. Review of Systems: No CV, , pulmonary, eye system symptoms on review. Ambulation impaired in wheelchair. Mental Status Exam: The patient is oriented herself and situation. As I met with her, she was talking about her son arranging to take her on Saturday and this is accurate. Speech is coherent, has some latency. Abstraction is fair. Computation is impaired. Language function is intact. No suicidal or homicidal ideation. Laboratory Data: Reviewed. Impression: Major neurocognitive disorder Alzheimer vascular with delusion, depression, behavioral disturbance. Anxiety disorder unspecified. Major depressive disorder. Plan: No change from initial note. Assessment: Vital Signs/I&O: Vital Signs Date Time Temp Pulse Resp B/P (MAP) Pulse Ox O2 Delivery O2 Flow Rate FiO2 01/15/21 07:52 90 130/78 01/15/21 06:21 98.1 14 96 01/14/21 06:18 Room Air I & O 01/14/21 01/14/21 01/15/21 15:00 23:00 07:00 Intake Total 600 ml 480 ml Balance 600 ml 480 ml Current Medications: Meds: Current Medications Medications (Trade) Dose Ordered Sig/Lita Route PRN Reason Start Time Stop Time Status Last Admin Dose Admin Amlodipine Besylate (Norvasc) 5 mg DAILY PO 01/13/21 09:00 01/15/21 07:52 Aspirin (Aspirin Enteric Coated) 81 mg DAILY PO 01/13/21 09:00 01/15/21 07:52 Bupropion HCl (Wellbutrin Sr) 100 mg DAILY PO 01/13/21 09:00 01/13/21 12:05 DC 01/13/21 08:13 Donepezil HCl (Aricept) 5 mg DAILY PO 01/13/21 09:00 01/15/21 07:52 Metoprolol Succinate (Toprol Xl) 12.5 mg HS PO 01/12/21 21:00 01/14/21 20:22 Sertraline HCl (Zoloft) 25 mg DAILY PO 01/13/21 09:00 01/13/21 12:05 DC 01/13/21 08:13 Mirabegron (Myrbetriq) 50 mg DAILY PO 01/13/21 09:00 01/15/21 07:53 Acetaminophen (Tylenol) 650 mg PRN Q6HRS PRN PO MILD PAIN / TEMP > 100.3'F 01/12/21 15:30 Multi-Ingredient Ointment (Analgesic [place]) 1 mercedez PRN QID PRN TP MUSCLE PAIN 01/12/21 15:30 Al Hydroxide/Mg Hydroxide (Mylanta Plus Xs) 15 ml PRN AFTMEALHC PRN PO DYSPEPSIA 01/12/21 15:30 Magnesium Hydroxide (Milk Of Magnesia) 2,400 mg PRN QHS PRN PO CONSTIPATION 01/12/21 15:30 Sertraline HCl (Zoloft) 50 mg DAILY PO 01/14/21 09:00 01/13/21 12:10 DC Sertraline HCl (Zoloft) 25 mg DAILY PO 01/14/21 09:00 01/13/21 12:16 DC Bupropion HCl (Wellbutrin Sr) 100 mg DAILY PO 01/14/21 09:00 01/15/21 07:52 Vitamin D (Vitamin D3) 50,000 unit WEEKLY PO 01/13/21 18:45 01/13/21 19:31 DC Vitamin D (Vitamin D3) 50,000 unit WEEKLY PO 01/14/21 09:00 01/14/21 08:14 Current Medications Medications (Trade) Dose Ordered Sig/Lita Route PRN Reason Start Time Stop Time Status Last Admin Dose Admin Bupropion HCl (Wellbutrin Sr) 100 mg DAILY PO 01/14/21 09:00 01/15/21 07:52 Vitamin D (Vitamin D3) 50,000 unit WEEKLY PO 01/14/21 09:00 01/14/21 08:14 I have reviewed the current psychotropics carefully including drug interactions. Risk benefit ratio favors no change other than as noted in my dictated progress note. Diagnosis: Problems: (1) Impulse control disorder, unspecified (2) Anxiety disorder, unspecified (3) Dementia, vascular, with depression (4) Dementia, vascular, with delusions (5) Dementia in Alzheimer's disease with depression (6) Dementia in Alzheimer's disease with delusions (7) Dementia of the Alzheimer's type with early onset with behavioral disturbance (8) Major neurocognitive disorder SHIRLEY FRANKLIN MD Jan 15, 2021 08:43
[2021-01-15 15:51] VITALS: BP 110/62
--- NOTE | 2021-01-15 18:42 | NUR ---
Pt up in wc for meals. Was pleasant in am. In afternoon pt became argumentative with staff and also would not stay in wc. Pt unable to walk and is a high risk for falls. Pt placed on matts in quiet sadler. Yelling out for son. Pt belligerent with staff. By supper pt more compliant and was redirectable. Pt compliant with meds and cares.
[2021-01-15] MEDS: METOPROLOL SUCC 24HR ER 25 MG TAB.ER.24H. PO SCH (20:44)
--- NOTE | 2021-01-15 21:59 | PDOC ---
Exam Note: Jose R Note: Please also refer to the separate dictated note~for this date of service dictated separately.~Patient seen individually. Discussed the patient with Nursing staff reviewed the chart.~Reviewed interim history and current functioning. Reviewed vital signs,~Labs/ Radiology~and current medications noted below. Continue current treatment with the changes noted in the dictated addendum note Assessment: Vital Signs/I&O: Vital Signs Date Time Temp Pulse Resp B/P (MAP) Pulse Ox O2 Delivery O2 Flow Rate FiO2 01/15/21 20:44 97 144/82 01/15/21 15:51 98.0 17 98 01/14/21 06:18 Room Air I & O 01/14/21 01/14/21 01/15/21 15:00 23:00 07:00 Intake Total 600 ml 480 ml Balance 600 ml 480 ml Current Medications: I have reviewed the current psychotropics carefully including drug interactions. Risk benefit ratio favors no change other than as noted in my dictated progress note. Diagnosis: Problems: (1) Impulse control disorder, unspecified (2) Anxiety disorder, unspecified (3) Dementia, vascular, with depression (4) Dementia, vascular, with delusions (5) Dementia in Alzheimer's disease with depression (6) Dementia in Alzheimer's disease with delusions (7) Dementia of the Alzheimer's type with early onset with behavioral disturbance (8) Major neurocognitive disorder SHIRLEY FRANKLIN MD Jan 15, 2021 21:59
[2021-01-16 06:41] VITALS: BP 101/67
[2021-01-16] MEDS: buPROPion SR 100 MG TABLET.SA. PO SCH (07:42)
[2021-01-16] MEDS: ASPIRIN ENTERIC COATED 81 MG TABLET.DR. PO SCH (07:42)
[2021-01-16] MEDS: DONEPEZIL HCL 5 MG TABLET. PO SCH (07:42)
[2021-01-16] MEDS: amLODIPine BESYLATE 5 MG TABLET PO SCH (07:42)
[2021-01-16] MEDS: MIRABEGRON 25 MG TAB.ER.24H PO SCH (07:43)
--- NOTE | 2021-01-16 08:50 | PDOC ---
Exam Note: Jose R Note: This note is a late entry for 01/15/2021 covers elements not covered in my initial note. Subjective: The patient was seen individually in the evening of 01/15/2021 with Vaishnavi WALDEN, discussed and reviewed the chart. The patient slept 3-1/4 hours previous night. She was somewhat anxious, more confused in the evening, trying to get out of the wheelchair. Nursing staff put mats on the floor so that she does not have a fall. After lunch she was yelling out for Johnathan and then did better after dinner. Review of Systems: No CV, , pulmonary, eye system symptoms on review. Ambulation impaired in wheelchair. Mental Status Exam: The patient is oriented herself and situation. Speech is coherent, has some latency. Abstraction is fair. Computation is impaired. Language function is intact. No suicidal or homicidal ideation. Laboratory Data: Reviewed. Impression: Major neurocognitive disorder Alzheimer vascular with delusion, depression, behavioral disturbance. Anxiety disorder unspecified. Major depressive disorder. Plan: No change from initial note. Family instructed that they do not want any further changes in psychotropics with a plan for them to take her home with home help on 01/16/21. Assessment: Vital Signs/I&O: Vital Signs Date Time Temp Pulse Resp B/P (MAP) Pulse Ox O2 Delivery O2 Flow Rate FiO2 01/16/21 07:42 70 101/67 01/16/21 06:41 98.5 18 96 Room Air I & O 01/15/21 01/15/21 01/16/21 15:00 23:00 07:00 Intake Total 560 ml 445 ml Balance 560 ml 445 ml Current Medications: Meds: Current Medications Medications (Trade) Dose Ordered Sig/Lita Route PRN Reason Start Time Stop Time Status Last Admin Dose Admin Amlodipine Besylate (Norvasc) 5 mg DAILY PO 01/13/21 09:00 01/15/21 07:52 Aspirin (Aspirin Enteric Coated) 81 mg DAILY PO 01/13/21 09:00 01/16/21 07:42 Bupropion HCl (Wellbutrin Sr) 100 mg DAILY PO 01/13/21 09:00 01/13/21 12:05 DC 01/13/21 08:13 Donepezil HCl (Aricept) 5 mg DAILY PO 01/13/21 09:00 01/16/21 07:42 Metoprolol Succinate (Toprol Xl) 12.5 mg HS PO 01/12/21 21:00 01/15/21 20:44 Sertraline HCl (Zoloft) 25 mg DAILY PO 01/13/21 09:00 01/13/21 12:05 DC 01/13/21 08:13 Mirabegron (Myrbetriq) 50 mg DAILY PO 01/13/21 09:00 01/16/21 07:43 Acetaminophen (Tylenol) 650 mg PRN Q6HRS PRN PO MILD PAIN / TEMP > 100.3'F 01/12/21 15:30 Multi-Ingredient Ointment (Analgesic [place]) 1 mercedez PRN QID PRN TP MUSCLE PAIN 01/12/21 15:30 Al Hydroxide/Mg Hydroxide (Mylanta Plus Xs) 15 ml PRN AFTMEALHC PRN PO DYSPEPSIA 01/12/21 15:30 Magnesium Hydroxide (Milk Of Magnesia) 2,400 mg PRN QHS PRN PO CONSTIPATION 01/12/21 15:30 Sertraline HCl (Zoloft) 50 mg DAILY PO 01/14/21 09:00 01/13/21 12:10 DC Sertraline HCl (Zoloft) 25 mg DAILY PO 01/14/21 09:00 01/13/21 12:16 DC Bupropion HCl (Wellbutrin Sr) 100 mg DAILY PO 01/14/21 09:00 01/16/21 07:42 Vitamin D (Vitamin D3) 50,000 unit WEEKLY PO 01/13/21 18:45 01/13/21 19:31 DC Vitamin D (Vitamin D3) 50,000 unit WEEKLY PO 01/14/21 09:00 01/14/21 08:14 I have reviewed the current psychotropics carefully including drug interactions. Risk benefit ratio favors no change other than as noted in my dictated progress note. Diagnosis: Problems: (1) Impulse control disorder, unspecified (2) Anxiety disorder, unspecified (3) Dementia, vascular, with depression (4) Dementia, vascular, with delusions (5) Dementia in Alzheimer's disease with depression (6) Dementia in Alzheimer's disease with delusions (7) Dementia of the Alzheimer's type with early onset with behavioral disturbance (8) Major neurocognitive disorder SHIRLEY FRANKLIN MD Jan 16, 2021 08:50
--- NOTE | 2021-01-16 09:46 | NUR ---
Transition Record was faxed to follow-up provider with the following elements: Reason for admission, procedures, tests, principal diagnosis, pending studies, patient instructions, 27/05 contact information for unit, phone number to obtain pending test results, plan for follow-up care, physician follow-up, advanced directive information, and medication list with dose, duration and instructions. This information was included in the following documents: History and physical, lab results, study results, progress notes, social work planning form, DC instruction form, patient visit summary, and medication reconciliation form. Date & time record faxed: 01/15/21 23:50 Record faxed to [facility] ABSTRACT SEARCHER: Record discussed with/ report given to: Family discussion of plan of care, discharged.
--- NOTE | 2021-01-16 14:50 | NUR ---
LESLIE contacted Johnathan, pt son, to question a time he was coming to pick pt up for discharge. Johnathan states that his brother is working on things and LESLIE would need to check in with him. LESLIE mentioned talking to Santos this morning and Santos told LESLIE to check in with Johnathan because he was making all the final decisions for discharge. Johnathan realizes pt is to leave today but said that his brother is responsible for making all the arrangements and to call him. He thought pt would be picked up today; Saturday at the latest.
--- NOTE | 2021-01-16 14:53 | NUR ---
LESLIE contacted Santos, pt son, and informed him that LESLIE just spoke with Johnathan who reported that he was not in charge of pt discharge arrangements but Santos was. Santos laughed and stated "are you kidding me. Did he make the plans for pt to leave today"? As Santos explained to LESLIE this morning, he had been working on getting private duty set up and thought it would be Saturday; however, with his brother telling LESLIE he'd pick pt up on Saturday, he wasn't prepared "I told you he was going to do this, he was gonna sweep in and try to be a hero, but I would end up being the one to clean everything up. I love my brother, but man he can bring some things out of me. I'm a Jain man, I don't drink or do drugs, but he's gonna force me to go out to the club". LESLIE informed Santos that in talking to Johnathan on Saturday, pt Medicare days are counting against her. She is receiving care; however, without consent to treat for medication, the sooner pt discharges the better. Santos understood and reports that he has the caregivers set up but is waiting to hear back from [facility] on being able to have the caregivers start [facility]. Santos will make a couple calls and contact LESLIE no later than 5:15 with the game plan for pt.
[2021-01-16 15:31] VITALS: BP 118/76
--- NOTE | 2021-01-16 16:04 | NUR ---
LESLIE received call from Santos, who reports that his brother is supposed to sign paperwork with the agency in [place]. He heard back from Bambi with [facility] but won't allow staff to start until paperwork is completed. "Paperwork is a big deal you know". Santos reports that his brother Johnathan is starting to change his mind and thinks to have pt at her house in her own space versus at home with him, which was the original plan. Santos continues to report that his brother is notorious for always either undoing what he set up or bucking up against things before dropping out of things. Santos plans to either call or email LESLIE with the update; in the event LESLIE has not heard from Santos, she will plan to call him in the morning.
[2021-01-16 21:29] VITALS: BP 112/68
[2021-01-16] MEDS: METOPROLOL SUCC 24HR ER 25 MG TAB.ER.24H. PO SCH (21:32)
--- NOTE | 2021-01-16 22:06 | PDOC ---
Exam Note: Jose R Note: Please also refer to the separate dictated note~for this date of service dictated separately.~Patient seen individually. Discussed the patient with Nursing staff reviewed the chart.~Reviewed interim history and current functioning. Reviewed vital signs,~Labs/ Radiology~and current medications noted below. Continue current treatment with the changes noted in the dictated addendum note Assessment: Vital Signs/I&O: Vital Signs Date Time Temp Pulse Resp B/P (MAP) Pulse Ox O2 Delivery O2 Flow Rate FiO2 01/16/21 21:32 69 112/68 01/16/21 15:31 99.7 18 97 01/16/21 06:41 Room Air I & O 01/15/21 01/15/21 01/16/21 15:00 23:00 07:00 Intake Total 560 ml 445 ml Balance 560 ml 445 ml Current Medications: Meds: Current Medications Medications (Trade) Dose Ordered Sig/Lita Route PRN Reason Start Time Stop Time Status Last Admin Dose Admin Amlodipine Besylate (Norvasc) 5 mg DAILY PO 01/13/21 09:00 01/15/21 07:52 Aspirin (Aspirin Enteric Coated) 81 mg DAILY PO 01/13/21 09:00 01/16/21 07:42 Bupropion HCl (Wellbutrin Sr) 100 mg DAILY PO 01/13/21 09:00 01/13/21 12:05 DC 01/13/21 08:13 Donepezil HCl (Aricept) 5 mg DAILY PO 01/13/21 09:00 01/16/21 07:42 Metoprolol Succinate (Toprol Xl) 12.5 mg HS PO 01/12/21 21:00 01/16/21 21:32 Sertraline HCl (Zoloft) 25 mg DAILY PO 01/13/21 09:00 01/13/21 12:05 DC 01/13/21 08:13 Mirabegron (Myrbetriq) 50 mg DAILY PO 01/13/21 09:00 01/16/21 07:43 Acetaminophen (Tylenol) 650 mg PRN Q6HRS PRN PO MILD PAIN / TEMP > 100.3'F 01/12/21 15:30 Multi-Ingredient Ointment (Analgesic [place]) 1 mercedez PRN QID PRN TP MUSCLE PAIN 01/12/21 15:30 Al Hydroxide/Mg Hydroxide (Mylanta Plus Xs) 15 ml PRN AFTMEALHC PRN PO DYSPEPSIA 01/12/21 15:30 Magnesium Hydroxide (Milk Of Magnesia) 2,400 mg PRN QHS PRN PO CONSTIPATION 01/12/21 15:30 Sertraline HCl (Zoloft) 50 mg DAILY PO 01/14/21 09:00 01/13/21 12:10 DC Sertraline HCl (Zoloft) 25 mg DAILY PO 01/14/21 09:00 01/13/21 12:16 DC Bupropion HCl (Wellbutrin Sr) 100 mg DAILY PO 01/14/21 09:00 01/16/21 07:42 Vitamin D (Vitamin D3) 50,000 unit WEEKLY PO 01/13/21 18:45 01/13/21 19:31 DC Vitamin D (Vitamin D3) 50,000 unit WEEKLY PO 01/14/21 09:00 01/14/21 08:14 I have reviewed the current psychotropics carefully including drug interactions. Risk benefit ratio favors no change other than as noted in my dictated progress note. Diagnosis: Problems: (1) Impulse control disorder, unspecified (2) Anxiety disorder, unspecified (3) Dementia, vascular, with depression (4) Dementia, vascular, with delusions (5) Dementia in Alzheimer's disease with depression (6) Dementia in Alzheimer's disease with delusions (7) Dementia of the Alzheimer's type with early onset with behavioral disturbance (8) Major neurocognitive disorder SHIRLEY FRANKLIN MD Jan 16, 2021 22:06
--- NOTE | 2021-01-16 23:49 | NUR ---
Patients son called and said that her dog is sick and dying and asked if he could pick her up nimisha. At the time of his phone call, 2129, the patient had already gone to bed. The family does not want the patient to be told that her dog is sick. Family had been scheduled to pick her up Saturday morning, but did not. Reportedly due to a disagreement between the sons about her early discharge. At one point this evening the patient was in the [facility] and asked everyone that passed if they were a metal mover and if she could go see her dog. 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 Patient asked this nurse "what grade are you in?" Patient was medication compliant and has been mostly calm.
--- NOTE | 2021-01-17 01:06 | NUR ---
Patients other son called at 0105 and asked if his mother could "come to the door" to see her dog. He stated the dog is dying. This nurse explained to the son that we cannot let patients go outside or even to the door in the middle of the night even if their dog is dying. He did not understand why we could not accommodate him. He said he will come and pick her up in the morning, 01/17. He did not specify a time. Patient had originally been scheduled to discharge on 01/16 but wasn't picked up by her family.
[2021-01-17 05:59] VITALS: BP 132/74
[2021-01-17] MEDS: MIRABEGRON 25 MG TAB.ER.24H PO SCH (08:51)
[2021-01-17] MEDS: buPROPion SR 100 MG TABLET.SA. PO SCH (08:51)
[2021-01-17] MEDS: amLODIPine BESYLATE 5 MG TABLET PO SCH (08:52)
[2021-01-17] MEDS: ASPIRIN ENTERIC COATED 81 MG TABLET.DR. PO SCH (08:52)
[2021-01-17] MEDS: DONEPEZIL HCL 5 MG TABLET. PO SCH (08:52)
--- NOTE | 2021-01-17 09:59 | NUR ---
LESLIE received a call from pt son, Johnathan, who requested that SW send a referral to [facility] as pt is not getting enough therapy. Pt son reports that private duty has been set up; however, it possible, it would be better to have pt have physical therapy before going home. LESLIE questioned pt son if he wasn't going to pick her up in which he stated "oh no, I'm coming to get her today. I would just like this referral sent before heading up that way". LESLIE questioned getting a specific time in which Johnathan questioned why and LESLIE again explained a specific time prevents them for sitting outside for an hour waiting for nursing to get everything prepared versus being told you'll be here at 1500 and waiting 5 minutes for her to be brought down. Well can you send the referral and then I should be able to tell you a more specific time afterwards. LESLIE will follow up with [facility] and call Johnathan with a specific transport time.
--- NOTE | 2021-01-17 10:05 | NUR ---
LESLIE contacted Cristofer at [facility] to give him an update on the referral that was requested to be sent over. Cristofer reports that pt son is very scattered and could not understand what is going on. LESLIE gave Cristofer an update on everything and will plan to send everything over for review. LESLIE let Cristofer know that pt is not stable from a psychiatric standpoint, due to son's refusal to allow medications; but if he has any further questions, he is more than welcome to contact LESLIE back.
--- NOTE | 2021-01-17 10:50 | PDOC ---
Exam Note: Jose R Note: This note is a late entry for 01/16/2021 covers elements not covered in my initial note. Subjective: The patient was seen individually in the evening of 01/16/2021 with Catherine WALDEN, discussed and reviewed the chart. The patient slept 7-1/4 hours previous night. She remains confused, somewhat delusional in the evening. 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 She gets extremely agitated if this is gently corrected. Review of Systems: No CV, , pulmonary, eye system symptoms on review. Ambulation impaired in wheelchair. Mental Status Exam: The patient is oriented herself and situation. Speech is coherent, has some latency. Abstraction is fair. Computation is impaired. Language function is intact. No suicidal or homicidal ideation. Laboratory Data: Reviewed. Impression: Major neurocognitive disorder Alzheimer vascular with delusion, depression, behavioral disturbance. Anxiety disorder unspecified. Major depressive disorder. Plan: No change from initial note. Family is still not willing to entertain ad ditional psychotropic medications, antipsychotics given her marked psychotic symptoms but want to defer discharge till she is stable to return home. Social service staff will continue to discuss with family about realistic expectations and necessity for possible antipsychotics as part of her treatment if they agree. Assessment: Vital Signs/I&O: Vital Signs Date Time Temp Pulse Resp B/P (MAP) Pulse Ox O2 Delivery O2 Flow Rate FiO2 01/17/21 08:52 74 132/74 01/17/21 05:59 98.9 20 97 Room Air I & O 01/16/21 01/16/21 01/17/21 15:00 23:00 07:00 Intake Total 840 ml 120 ml Balance 840 ml 120 ml Current Medications: Meds: Current Medications Medications (Trade) Dose Ordered Sig/Lita Route PRN Reason Start Time Stop Time Status Last Admin Dose Admin Amlodipine Besylate (Norvasc) 5 mg DAILY PO 01/13/21 09:00 01/17/21 08:52 Aspirin (Aspirin Enteric Coated) 81 mg DAILY PO 01/13/21 09:00 01/17/21 08:52 Bupropion HCl (Wellbutrin Sr) 100 mg DAILY PO 01/13/21 09:00 01/13/21 12:05 DC 01/13/21 08:13 Donepezil HCl (Aricept) 5 mg DAILY PO 01/13/21 09:00 01/17/21 08:52 Metoprolol Succinate (Toprol Xl) 12.5 mg HS PO 01/12/21 21:00 01/16/21 21:32 Sertraline HCl (Zoloft) 25 mg DAILY PO 01/13/21 09:00 01/13/21 12:05 DC 01/13/21 08:13 Mirabegron (Myrbetriq) 50 mg DAILY PO 01/13/21 09:00 01/17/21 08:51 Acetaminophen (Tylenol) 650 mg PRN Q6HRS PRN PO MILD PAIN / TEMP > 100.3'F 01/12/21 15:30 Multi-Ingredient Ointment (Analgesic [place]) 1 mercedez PRN QID PRN TP MUSCLE PAIN 01/12/21 15:30 Al Hydroxide/Mg Hydroxide (Mylanta Plus Xs) 15 ml PRN AFTMEALHC PRN PO DYSPEPSIA 01/12/21 15:30 Magnesium Hydroxide (Milk Of Magnesia) 2,400 mg PRN QHS PRN PO CONSTIPATION 01/12/21 15:30 Sertraline HCl (Zoloft) 50 mg DAILY PO 01/14/21 09:00 01/13/21 12:10 DC Sertraline HCl (Zoloft) 25 mg DAILY PO 01/14/21 09:00 01/13/21 12:16 DC Bupropion HCl (Wellbutrin Sr) 100 mg DAILY PO 01/14/21 09:00 01/17/21 08:51 Vitamin D (Vitamin D3) 50,000 unit WEEKLY PO 01/13/21 18:45 01/13/21 19:31 DC Vitamin D (Vitamin D3) 50,000 unit WEEKLY PO 01/14/21 09:00 01/14/21 08:14 I have reviewed the current psychotropics carefully including drug interactions. Risk benefit ratio favors no change other than as noted in my dictated progress note. Diagnosis: Problems: (1) Impulse control disorder, unspecified (2) Anxiety disorder, unspecified (3) Dementia, vascular, with depression (4) Dementia, vascular, with delusions (5) Dementia in Alzheimer's disease with depression (6) Dementia in Alzheimer's disease with delusions (7) Dementia of the Alzheimer's type with early onset with behavioral disturbance (8) Major neurocognitive disorder SHIRLEY FRANKLIN MD Jan 17, 2021 10:50
--- NOTE | 2021-01-17 12:40 | NUR ---
SW contacted pt son, Johnathan, who reports that he has not heard from [facility] yet. He is waiting for their decision on potential admission for rehab. SW will call Cristofer and then call Johnathan back. SW contacted Cristofer, who was out on a run to the hospital. He reports he will be back in the office around 1330 and should have an answer for both parties. SW attempted to contact Johnathan to give him that update; however, pt phone rang and went to voicemail. Pt voicemail was full and SW was not able to leave a message.
--- NOTE | 2021-01-17 16:10 | NUR ---
LESLIE received a call from Santos, pt son/DPOA, who reports being very stressed out and family is still blaming him for pt current condition. Santos reports that he is more than happy for pt to remain on [facility] and be medicated so that she can move on to the next place; whether that is home or a facility. Santos feels that with staff being professionals in the field, he trusts that staff knows what to do without "sedating pt". Santos reports that his brother feels very differently. "I love my brother and I want to support him, but I'm tired. I'm putting my own health on hold to figure this out for Mom". Santos gave more background history on the relationship between his brother and the pt, stating "he's the favorite and always has been". LESLIE reiterated that Santos was put as the DPOA for a reason; as much as Santos wants to make all parties happy, he will need to make decisions that are best for pt. Santos reported that pt brother called 5x within this conversation and he just doesn't wish to deal with it at this time. Santos discussed with LESLIE that he is looking into the [facility] for placement and is working with the Medicaid window caser in being able to make this happen. Santos will continue to work on getting pt situation worked out and update LESLIE in the process.
[2021-01-17 16:21] VITALS: BP 137/78
--- NOTE | 2021-01-17 16:45 | NUR ---
SW received a call from Johnathan who wanted to inform staff that he is on his way to pick pt up. He is currently in [place] and plans to have pt be around to see her dog before she dies.
--- NOTE | 2021-01-17 17:04 | NUR ---
LESLIE received a call from Santos who just found out that pt brother is on his way from [place] to pick pt up. Santos told his brother it was a bad idea and pt brother continued to report "that's my mother". Santos reported that he is not supportive of this but at this point, it's what his brother wants. Santos understands that it is possible that this can come back on them and is doing everything in his power to prevent his brother from taking her out. If Johnathan shows up and does take her, Santos would like to be called and told what happened.
--- NOTE | 2021-01-17 17:20 | NUR ---
LESLIE received call from Verito who also had his Aunt Chloé, pt sister, on the phone via conference. Verito brought up with LESLIE that he was told by his brother that without medications, facilities would not accept pt. LESLIE explained that pt is having behaviors here and is quite delusional; if these behaviors could not be calmed no facility is going to feel that they can care for her. LESLIE discussed with the family that [facility] denied pt admission because she was not on medications to aid in controlling her behavior. Verito was adamant that pt was not here for behaviors and only came in for therapy. Chloé questioned LESLIE what type of unit pt was on and LESLIE stated "she is on a [facility] Unit, in which we specialize in geriatric mental health, psychiatric medications and behavior management". Chloé asked if pt was getting therapy and LESLIE explained that she may receive roughly 30 minutes of therapy a day. Depends on what she allows them to do with her and whether or not she agrees to do therapy. Pt did not receive any form of therapy over the weekend. Verito is questioning why pt had to leave and LESLIE explained that it was because he did not wish to start any medications on pt and with the program set up, medications is 75-80% of what "we do". Verito stated he never said that and called LESLIE a liar; despite LESLIE going through the conversation in the system re: Verito's request. LESLIE explained if we didn't have this conversation, we wouldn't be pushing you to pick pt up. LESLIE explained that in talking to Santos, pt son, he would like for pt to stay. Chloé asked when LESLIE spoke to Santos and LESLIE informed her this afternoon. Since Santos is DPOA, Chloé agrees and wants to allow staff to have pt treated. Verito then because belligerent and upset stating "fine Aunt Chloé you and Santos take care of this because I just can't do it. You call and have her dog put down because I'm not allowing myself to make any decisions anymore".
--- NOTE | 2021-01-17 18:26 | NUR ---
Patient has been labile throughout this shift; this morning she was irritable and preoccupied with finding her purse. She has been demanding to call her sons, and when she called her son before lunch and talked with him briefly, she then denied ever calling him 15 minutes later. She has had occasional hallucinations, stating once that she heard her dog barking. During the afternoon she was disruptive and aggressive in the day room; patient placed in west hallway to calm down. Will continue to monitor and report to MD during rounds.
--- NOTE | 2021-01-17 21:59 | PDOC ---
Exam Note: Jose R Note: Please also refer to the separate dictated note~for this date of service dictated separately.~Patient seen individually. Discussed the patient with Nursing staff reviewed the chart.~Reviewed interim history and current functioning. Reviewed vital signs,~Labs/ Radiology~and current medications noted below. Continue current treatment with the changes noted in the dictated addendum note Assessment: Vital Signs/I&O: Vital Signs Date Time Temp Pulse Resp B/P (MAP) Pulse Ox O2 Delivery O2 Flow Rate FiO2 01/17/21 16:21 98.8 85 16 137/78 (97) 97 01/17/21 05:59 Room Air I & O 01/16/21 01/16/21 01/17/21 15:00 23:00 07:00 Intake Total 840 ml 120 ml Balance 840 ml 120 ml Current Medications: Meds: Current Medications Medications (Trade) Dose Ordered Sig/Lita Route PRN Reason Start Time Stop Time Status Last Admin Dose Admin Amlodipine Besylate (Norvasc) 5 mg DAILY PO 01/13/21 09:00 01/17/21 08:52 Aspirin (Aspirin Enteric Coated) 81 mg DAILY PO 01/13/21 09:00 01/17/21 08:52 Bupropion HCl (Wellbutrin Sr) 100 mg DAILY PO 01/13/21 09:00 01/13/21 12:05 DC 01/13/21 08:13 Donepezil HCl (Aricept) 5 mg DAILY PO 01/13/21 09:00 01/17/21 08:52 Metoprolol Succinate (Toprol Xl) 12.5 mg HS PO 01/12/21 21:00 01/16/21 21:32 Sertraline HCl (Zoloft) 25 mg DAILY PO 01/13/21 09:00 01/13/21 12:05 DC 01/13/21 08:13 Mirabegron (Myrbetriq) 50 mg DAILY PO 01/13/21 09:00 01/17/21 08:51 Acetaminophen (Tylenol) 650 mg PRN Q6HRS PRN PO MILD PAIN / TEMP > 100.3'F 01/12/21 15:30 Multi-Ingredient Ointment (Analgesic [place]) 1 mercedez PRN QID PRN TP MUSCLE PAIN 01/12/21 15:30 Al Hydroxide/Mg Hydroxide (Mylanta Plus Xs) 15 ml PRN AFTMEALHC PRN PO DYSPEPSIA 01/12/21 15:30 Magnesium Hydroxide (Milk Of Magnesia) 2,400 mg PRN QHS PRN PO CONSTIPATION 01/12/21 15:30 Sertraline HCl (Zoloft) 50 mg DAILY PO 01/14/21 09:00 01/13/21 12:10 DC Sertraline HCl (Zoloft) 25 mg DAILY PO 01/14/21 09:00 01/13/21 12:16 DC Bupropion HCl (Wellbutrin Sr) 100 mg DAILY PO 01/14/21 09:00 01/17/21 08:51 Vitamin D (Vitamin D3) 50,000 unit WEEKLY PO 01/13/21 18:45 01/13/21 19:31 DC Vitamin D (Vitamin D3) 50,000 unit WEEKLY PO 01/14/21 09:00 01/14/21 08:14 I have reviewed the current psychotropics carefully including drug interactions. Risk benefit ratio favors no change other than as noted in my dictated progress note. Diagnosis: Problems: (1) Impulse control disorder, unspecified (2) Anxiety disorder, unspecified (3) Dementia, vascular, with depression (4) Dementia, vascular, with delusions (5) Dementia in Alzheimer's disease with depression (6) Dementia in Alzheimer's disease with delusions (7) Dementia of the Alzheimer's type with early onset with behavioral disturbance (8) Major neurocognitive disorder SHIRLEY FRANKLIN MD Jan 17, 2021 21:59
[2021-01-17] MEDS: METOPROLOL SUCC 24HR ER 25 MG TAB.ER.24H. PO SCH (22:03)
--- NOTE | 2021-01-18 00:04 | NUR ---
Patient was in [facility] at the beginning of this shift. She was delusional, stating that she "needs to go home" and asking "what time do we clock out"? When patient was calm and allowed to go into day room she kept asking when she could go home and how many hours she had been here. Patient compliant with BP medication, which is her only HS medication. Patients family did not call [facility]. Will continue to monitor.
[2021-01-18 06:04] VITALS: BP 104/63
[2021-01-18] MEDS: DONEPEZIL HCL 5 MG TABLET. PO SCH (08:26)
[2021-01-18] MEDS: ASPIRIN ENTERIC COATED 81 MG TABLET.DR. PO SCH (08:26)
[2021-01-18] MEDS: buPROPion SR 100 MG TABLET.SA. PO SCH (08:26)
[2021-01-18] MEDS: MIRABEGRON 25 MG TAB.ER.24H PO SCH (08:27)
[2021-01-18] MEDS: amLODIPine BESYLATE 5 MG TABLET PO SCH (08:27)
--- NOTE | 2021-01-18 09:08 | PDOC ---
Exam Note: Jose R Note: This note is a late entry for 01/17/2021 covers elements not covered in my initial note. Subjective: The patient was seen individually in the evening of 01/17/2021 with Lakshmi WALDEN, discussed and reviewed the chart. The patient slept 7 hours previous night. She has been intermittently agitated. Reportedly family was wanting her to be discharged around 9.30 p.m. last night. It was not entirely clear the reason for this. Apparently Beth Bowling, social service staff is addressing this with the family. Review of Systems: No CV, , pulmonary, eye, ENT system symptoms on review. Ambulation impaired in wheelchair. Mental Status Exam: The patient is oriented herself and situation. She seemed more coherent this evening than previous days. Speech is coherent, rapid at times. Abstraction is fair. Computation is impaired. Language function is intact. Attention span is short. Mood and affect somewhat anxious, labile. Laboratory Data: Reviewed. Impression: Major neurocognitive disorder Alzheimer vascular with delusion, depression, behavioral disturbance. Anxiety disorder unspecified. Major depressive disorder. Plan: No change from initial note. Given her psychotic symptoms, she would benefit from treatment on atypical antipsychotics. We will have to clarify the familys desires about this. Assessment: Vital Signs/I&O: Vital Signs Date Time Temp Pulse Resp B/P (MAP) Pulse Ox O2 Delivery O2 Flow Rate FiO2 01/18/21 08:27 89 104/63 01/18/21 06:04 97.4 18 98 01/17/21 05:59 Room Air I & O 01/17/21 01/17/21 01/18/21 15:00 23:00 07:00 Intake Total 840 ml 600 ml Balance 840 ml 600 ml Current Medications: Meds: Current Medications Medications (Trade) Dose Ordered Sig/Lita Route PRN Reason Start Time Stop Time Status Last Admin Dose Admin Amlodipine Besylate (Norvasc) 5 mg DAILY PO 01/13/21 09:00 01/18/21 08:27 Aspirin (Aspirin Enteric Coated) 81 mg DAILY PO 01/13/21 09:00 01/18/21 08:26 Bupropion HCl (Wellbutrin Sr) 100 mg DAILY PO 01/13/21 09:00 01/13/21 12:05 DC 01/13/21 08:13 Donepezil HCl (Aricept) 5 mg DAILY PO 01/13/21 09:00 01/18/21 08:26 Metoprolol Succinate (Toprol Xl) 12.5 mg HS PO 01/12/21 21:00 01/17/21 22:03 Sertraline HCl (Zoloft) 25 mg DAILY PO 01/13/21 09:00 01/13/21 12:05 DC 01/13/21 08:13 Mirabegron (Myrbetriq) 50 mg DAILY PO 01/13/21 09:00 01/18/21 08:27 Acetaminophen (Tylenol) 650 mg PRN Q6HRS PRN PO MILD PAIN / TEMP > 100.3'F 01/12/21 15:30 Multi-Ingredient Ointment (Analgesic [place]) 1 mercedez PRN QID PRN TP MUSCLE PAIN 01/12/21 15:30 Al Hydroxide/Mg Hydroxide (Mylanta Plus Xs) 15 ml PRN AFTMEALHC PRN PO DYSPEPSIA 01/12/21 15:30 Magnesium Hydroxide (Milk Of Magnesia) 2,400 mg PRN QHS PRN PO CONSTIPATION 01/12/21 15:30 Sertraline HCl (Zoloft) 50 mg DAILY PO 01/14/21 09:00 01/13/21 12:10 DC Sertraline HCl (Zoloft) 25 mg DAILY PO 01/14/21 09:00 01/13/21 12:16 DC Bupropion HCl (Wellbutrin Sr) 100 mg DAILY PO 01/14/21 09:00 01/18/21 08:26 Vitamin D (Vitamin D3) 50,000 unit WEEKLY PO 01/13/21 18:45 01/13/21 19:31 DC Vitamin D (Vitamin D3) 50,000 unit WEEKLY PO 01/14/21 09:00 01/14/21 08:14 I have reviewed the current psychotropics carefully including drug interactions. Risk benefit ratio favors no change other than as noted in my dictated progress note. Diagnosis: Problems: (1) Impulse control disorder, unspecified (2) Anxiety disorder, unspecified (3) Dementia, vascular, with depression (4) Dementia, vascular, with delusions (5) Dementia in Alzheimer's disease with depression (6) Dementia in Alzheimer's disease with delusions (7) Dementia of the Alzheimer's type with early onset with behavioral disturbance (8) Major neurocognitive disorder SHIRLEY FRANKLIN MD Jan 18, 2021 09:08
--- NOTE | 2021-01-18 11:04 | NUR ---
Hgb A1C was drawn at [facility] 01/11/21, result 5.2.
--- NOTE | 2021-01-18 11:49 | NUR ---
Pt has been calm and cooperative this shift. She is med compliant with verbal encouragement. While taking medications she requested that this nurse identify each individual pill in the cup to her. She has been absent of SI/HI behaviors, absent of aggression or disruptive behaviors on shift. She has been absent of distraction/disturbance from possible AH/VH/delusions at this time. She has been pleasant with her interactions with patients and staff alike. This nurse followed up with SW to confirm DPOA approval to begin medications if necessitated. SW confirmed that approval was given. At this time she has not needed PRN medications. Plan of care continues, will pass on to next shift
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
--- NOTE | 2021-01-18 15:35 | NUR ---
Pt remains argumentative with staff in the quiet hallway. She has no memory of the phone conversation with her son/DPHALIMA and demands to call and talk to him to inquire about the location of her dog. D/t her berating and threatening language towards son/DPOA on the phone this request could not be accommodated at this current time. Pt states she does not remember talking to her son and wants to know where her dog is. When reminded that she was informed less than 2 hours ago by this nurse and son/DPOA she replied "You guys never told me that. I wasn't even on the phone with my son today." This nurse wrote a note to keep in pt's pocket that reads "You are in a hospital. No dogs allowed. Your sons have your dog." Pt began to explain to this nurse that her sons are holding her dog hostage until she meets their demands to sell her house and move in with them, she states she is worried her sons will kill the dog. Pt then began to lecture this nurse that she (pt) needs to leave [facility] and that my keeping of her on [facility] is "morally and legally wrong." She continues to argue and interrupt nurse with interjections of "you need to listen to me now!" When asked to call son/DPHALIMA this nurse explained that at this time with her agitation the request cannot be accommodated because the last time she spoke with her son while in a high state of anger/agitation she threatened to kill herself if he doesn't come and get her. Pt smiled and quietly replied in a calm manner, "Well maybe I will kill myself." Pt remains in the quiet [facility] for her own safety and close observation. Addendum: 01/18/21 at 1551 by MAILE ROJAS RN Pt pulled out the note approx 10 minutes later and was upset that no one told her that her sons have her dog while she is having treatment. She is once again demanding to leave and/or talk to her son/DPOA concerning the location/wellfare of her dog. PRAMOD Jordan 2.5 mg administered tucked into a cookie.
--- NOTE | 2021-01-18 17:53 | NUR ---
Per son/DPOA, pt's dog was put to sleep yesterday. He has requested that no staff member inform her of this yet until he talks to SW about if/how/when to break the news to her.
[2021-01-18 19:49] VITALS: BP 127/80
[2021-01-18] MEDS: METOPROLOL SUCC 24HR ER 25 MG TAB.ER.24H. PO SCH (19:55)
--- NOTE | 2021-01-18 22:10 | PDOC ---
Exam Note: Jose R Note: Please also refer to the separate dictated note~for this date of service dictated separately.~Patient seen individually. Discussed the patient with Nursing staff reviewed the chart.~Reviewed interim history and current functioning. Reviewed vital signs,~Labs/ Radiology~and current medications noted below. Continue current treatment with the changes noted in the dictated addendum note Assessment: Vital Signs/I&O: Vital Signs Date Time Temp Pulse Resp B/P (MAP) Pulse Ox O2 Delivery O2 Flow Rate FiO2 01/18/21 19:55 66 127/80 01/18/21 06:04 97.4 18 98 01/17/21 05:59 Room Air I & O 01/17/21 01/17/21 01/18/21 15:00 23:00 07:00 Intake Total 840 ml 600 ml Balance 840 ml 600 ml Current Medications: Meds: Current Medications Medications (Trade) Dose Ordered Sig/Lita Route PRN Reason Start Time Stop Time Status Last Admin Dose Admin Olanzapine (ZyPREXA ZYDIS) 2.5 mg PRN Q2HR PRN PO PSYCHOSIS 01/18/21 13:30 01/18/21 13:53 I have reviewed the current psychotropics carefully including drug interactions. Risk benefit ratio favors no change other than as noted in my dictated progress note. Diagnosis: Problems: (1) Impulse control disorder, unspecified (2) Anxiety disorder, unspecified (3) Dementia, vascular, with depression (4) Dementia, vascular, with delusions (5) Dementia in Alzheimer's disease with depression (6) Dementia in Alzheimer's disease with delusions (7) Dementia of the Alzheimer's type with early onset with behavioral disturbance (8) Major neurocognitive disorder SHIRLEY FRANKLIN MD Jan 18, 2021 22:10
--- NOTE | 2021-01-19 00:01 | NUR ---
Patient is disoriented and delusional. She thinks that she is at work and has asked multiple times how she can "clock out". Patient re-oriented to place and situation but continues to talk as if she is at work. Patient asked this nurse about her dog, nurse did not tell patient that dog is per families request. Patient stated that the dog is "very old and sick" and that her son does not know how to take care of a dog. Patient cooperative with assessment and compliant with medication. Patient drank several glasses of water before bed and had an incontinent episode during the night. Patient was scheduled for weekly COVID testing 01/18 but it was not preformed due to patients pending discharge status. As patient is not scheduled for discharge at this time, she will be swabbed for COVID in the am.
[2021-01-19 05:38] VITALS: BP 119/64
--- NOTE | 2021-01-19 06:47 | NUR ---
Patient is very disorganized. She keeps asking "when do i work next" and saying things liked "Im probably just going to quit, i pay $20 in gas to come to work". Staff has re-oriented her many times this morning. Patient has also stated that she needs to get home to care for her dog. She has a very short term memory. COVID swab done and submitted to lab.
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
[2021-01-19] MEDS: ASPIRIN ENTERIC COATED 81 MG TABLET.DR. PO SCH (08:31)
[2021-01-19] MEDS: buPROPion SR 100 MG TABLET.SA. PO SCH (08:31)
[2021-01-19] MEDS: amLODIPine BESYLATE 5 MG TABLET PO SCH (08:31)
[2021-01-19] MEDS: DONEPEZIL HCL 5 MG TABLET. PO SCH (08:31)
[2021-01-19] MEDS: MIRABEGRON 25 MG TAB.ER.24H PO SCH (08:31)
--- NOTE | 2021-01-19 08:34 | PDOC ---
Exam Note: Jose R Note: This note is a late entry for 01/18/2021 covers elements not covered in my initial note. Subjective: The patient was seen individually in the evening of 01/18/2021 with Taina WALDEN, discussed and reviewed the chart. The patient slept 7-1/4 hours previous night. Also I had an emergency call from Taina WALDEN earlier in the day as the patient was extremely psychotic, agitated, disruptive, unmanageable and we added Zyprexa 2.5 mg q.2h. p.r.n. psychosis and agitation, max 7.5 mg in 24 hours. She was striking out at staff, head butting staff. She was angry at being here. At her request, the nursing staff connected her on the telephone with her son and she was extremely verbally abusive to him as well and the call had to be terminated. Review of Systems: No CV, , pulmonary, eye, ENT system symptoms on review. Ambulation impaired in wheelchair. Mental Status Exam: The patient is oriented herself. Insight and judgement, recent and remote memory, attention and concentration, fund of knowledge is poor consistent with her diagnoses. Laboratory Data: Reviewed. Impression: Major neurocognitive disorder Alzheimer vascular with delusion, depression, behavioral disturbance. Anxiety disorder unspecified. Major depressive disorder. Plan: No change from initial note. Start the Zyprexa p.r.n. Make further adjustments as clinically indicated. Assessment: Vital Signs/I&O: Vital Signs Date Time Temp Pulse Resp B/P (MAP) Pulse Ox O2 Delivery O2 Flow Rate FiO2 01/19/21 08:31 75 119/64 01/19/21 05:38 97.6 16 99 01/17/21 05:59 Room Air I & O 01/18/21 01/18/21 01/19/21 15:00 23:00 07:00 Intake Total 560 ml 360 ml Balance 560 ml 360 ml Current Medications: Meds: Current Medications Medications (Trade) Dose Ordered Sig/Lita Route PRN Reason Start Time Stop Time Status Last Admin Dose Admin Amlodipine Besylate (Norvasc) 5 mg DAILY PO 01/13/21 09:00 01/19/21 08:31 Aspirin (Aspirin Enteric Coated) 81 mg DAILY PO 01/13/21 09:00 01/19/21 08:31 Bupropion HCl (Wellbutrin Sr) 100 mg DAILY PO 01/13/21 09:00 01/13/21 12:05 DC 01/13/21 08:13 Donepezil HCl (Aricept) 5 mg DAILY PO 01/13/21 09:00 01/19/21 08:31 Metoprolol Succinate (Toprol Xl) 12.5 mg HS PO 01/12/21 21:00 01/18/21 19:55 Sertraline HCl (Zoloft) 25 mg DAILY PO 01/13/21 09:00 01/13/21 12:05 DC 01/13/21 08:13 Mirabegron (Myrbetriq) 50 mg DAILY PO 01/13/21 09:00 01/19/21 08:31 Acetaminophen (Tylenol) 650 mg PRN Q6HRS PRN PO MILD PAIN / TEMP > 100.3'F 01/12/21 15:30 Multi-Ingredient Ointment (Analgesic [place]) 1 mercedez PRN QID PRN TP MUSCLE PAIN 01/12/21 15:30 Al Hydroxide/Mg Hydroxide (Mylanta Plus Xs) 15 ml PRN AFTMEALHC PRN PO DYSPEPSIA 01/12/21 15:30 Magnesium Hydroxide (Milk Of Magnesia) 2,400 mg PRN QHS PRN PO CONSTIPATION 01/12/21 15:30 Sertraline HCl (Zoloft) 50 mg DAILY PO 01/14/21 09:00 01/13/21 12:10 DC Sertraline HCl (Zoloft) 25 mg DAILY PO 01/14/21 09:00 01/13/21 12:16 DC Bupropion HCl (Wellbutrin Sr) 100 mg DAILY PO 01/14/21 09:00 01/19/21 08:31 Vitamin D (Vitamin D3) 50,000 unit WEEKLY PO 01/13/21 18:45 01/13/21 19:31 DC Vitamin D (Vitamin D3) 50,000 unit WEEKLY PO 01/14/21 09:00 01/14/21 08:14 Olanzapine (ZyPREXA ZYDIS) 2.5 mg PRN Q2HR PRN PO PSYCHOSIS 01/18/21 13:30 01/19/21 07:52 Current Medications Medications (Trade) Dose Ordered Sig/Lita Route PRN Reason Start Time Stop Time Status Last Admin Dose Admin Olanzapine (ZyPREXA ZYDIS) 2.5 mg PRN Q2HR PRN PO PSYCHOSIS 01/18/21 13:30 01/19/21 07:52 I have reviewed the current psychotropics carefully including drug interactions. Risk benefit ratio favors no change other than as noted in my dictated progress note. Diagnosis: Problems: (1) Impulse control disorder, unspecified (2) Anxiety disorder, unspecified (3) Dementia, vascular, with depression (4) Dementia, vascular, with delusions (5) Dementia in Alzheimer's disease with depression (6) Dementia in Alzheimer's disease with delusions (7) Dementia of the Alzheimer's type with early onset with behavioral disturbance (8) Major neurocognitive disorder SHIRLEY FRANKLIN MD Jan 19, 2021 08:34
--- NOTE | 2021-01-19 11:51 | NUR ---
WEEKLY ACTIVITY THERAPY NOTE Date of Admission: 01/12/2021 Date of AT Assessment: 01/13/2021 Precipitating behaviors that initiated intake and admission: combative towards family, suspicious/paranoid towards family, unable to care for self at home, but insists on going home, increased confusion, poor intake of meals, irritable, argumentative, uncooperative Goal aimed: to increase engagement and relaxation Initial Goal: Pt. will participate in at least three Activity Therapy groups per week. Weekly progress towards goal: achieved /3 Group participation level: 1 full, 1 mod, 2 min Weekly highlights: Sang during gospel group Saturday, colored cup during Saturday Behaviors observed: fixated on time Saturday, secured hallway Saturday, fixated on dog and was not redirectable Plan: no change to goal Beneficial adaptations:
--- NOTE | 2021-01-19 13:30 | NUR ---
Pt is confused, becoming more defiant and argumentative. She states she wants to leave and that her son is not her DPOA and did not give [facility] permission to treat her. When this nurse asked why she has a patient ID bracelet on, she replied that the bracelet is d/t "having bloodwork done the other day." When it was pointed out that the date of service on the bracelet is 01/12/21 and that she has been a pt here for approx 7 days, she denied that was the case and argues that she has been leaving [facility] every day to work and [employer]. She demands to speak with her son and is very angry, she insists that she has a right to speak with her son. This nurse reinforced boundaries of appropriate behavior and language, stating that I would attempt to see if son/DPOA agrees to talk with her but that the conversation would have to cease if she engages in threatening/abusive language at him. Addendum: 01/19/21 at 1356 by MAILE ROJAS RN Pt continues with belligerence, delusions, paranoia, and high anxiety. She insists that [facility] is actually [facility] and complaining to other patients that she is being held here against her will. Verbal redirection, reorientation, de-escalation, and change of environment into the quiet hallway for less stimuli has not been successful. Pt remains resistant to tx and nursing staff; stating she will not listen to nursing staff regarding plan of care and medications, demanding to speak with only the doctor to hear directions from him. PRN Zyprexa 2.5 mg administered sublingually with assistance of 3 staff at approx 1350. Pt responded by spitting at staff.
--- NOTE | 2021-01-19 13:46 | TX PLAN ---
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 Additional Admission Comments: According to the intake, pt is combative towards family, suspicious, paranoid towards family, unable to care for self at home but insists on going home, increased confusion, poor intake of meals, irritable, argumentative, uncooperative Problems Active Problems: irritable uncooperative with staff Inactive Problems: Medication compliant Pt Strengths/Limitations Ability for [place]: Poor Cognitive Functioning/Ability: Fair Communication Skills/Ability: Fair Financial Resources: Fair Insight/Judgement: Poor Intellectual Ability: Fair Physical Health: Fair Social Skills: Fair Stability in Family: Fair Stability in School/Work: Poor Verbal Skills: Fair Discharge Criteria Discharge Criteria: No need for close observ., Adequate arrangements @DC, Improved behavior, Improved mood/thought Preliminary Discharge Plan Preliminary DC Plan: Current Living Arrange., Home Special Precautions Fall Risk: Moderate Initial D/C Plan Pt to discharge home with private duty and community resources Identified Discharge Needs: Psychiatry Currently Utilized Resources Currently Utilized Resources/P: Primary Care Physician Identified Problems/Hx/Goals Objectives/Short-Term Goals Short Term Goals: Dec. Outbursts, Dec. Symp. Depression, Medication Stabilization, Promote Coping Skill Short Term Goals in Patient's: I need to get home Interventions/Frequency Staff Interventions/Frequency&: Psychiatrist to assess pt at least 3x per week for medication management. Social Work to asses pt at least 2x per week for identification of barriers to care and discharge planning. Nursing to monitor medication effects, behavioral management and completion of 15 minute checks. Encourage participation in group activities (if applicable) or 1:1 engagement based of Activity Dept goals. 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 Son does not wish for pt to start on any psychotropic medications. Treatment Plan Explained Patient/Hand Patcher had this treatment plan explained to him/her as indicated by the signature below and has been given the opportunity to ask questions and make suggestions: Date: Patient/Hand Patcher Signature: Status Update Update Pt is eating 75% of meals and sleeping 7.25 hours per night. Pt continues to have periods of alert and orientedness, but also has delusional moments, believe that she is at work and is looking for the time clock. Pt has been refusing to take any psychiatric medications and stated that she is of sound mind and us keeping her here is illegal. Pt son does not wish to for pt to know that her dog was put to sleep and would appreciate staff following through with this until the family is able to let her know when the moment is right. Pt has been accepted at [facility]. SW will be in contact with pt family and the facility in getting everything set up for pt once she is stable. Pt will be started on Seroquel either 12.5mg TID or 25mg at . DEIRDRE VERGARA Jan 19, 2021 13:46
--- NOTE | 2021-01-19 15:17 | NUR ---
PRN Zyprexa does not appear to be effective. Pt self exited from her w/c (despite having a chair alarm) and laid herself onto the floor in the quiet hallway against the wall. When nursing staff went into the hallway and called out to her she laid very still and did not answer staff. After a few seconds she gasped for air and began to breathe hard, as if she was holding her breath. It appears as if she may have been acting when staff were investigating her behaviors. After a few minutes she stood back up and attempted to get back into her w/c. When asked what she was doing on the floor she replied, "I was trying to get away from you." When staff attempted to reattach the string from her shirt back to the chair alarm she held onto the sting and refused to allow staff to reactive the chair alarm, stating she would give it back to staff if we gave her dog back to her. She then began to hit the doors and pull onto the door handles very hard in a repetitive manner.
[2021-01-19 16:10] VITALS: BP 118/70
[2021-01-19] MEDS: QUEtiapine 25 MG TABLET. PO SCH (20:27)
[2021-01-19] MEDS: METOPROLOL SUCC 24HR ER 25 MG TAB.ER.24H. PO SCH (20:27)
--- NOTE | 2021-01-19 21:33 | PDOC ---
Exam Note: Jose R Note: Please also refer to the separate dictated note~for this date of service dictated separately.~Patient seen individually. Discussed the patient with Nursing staff reviewed the chart.~Reviewed interim history and current functioning. Reviewed vital signs,~Labs/ Radiology~and current medications noted below. Continue current treatment with the changes noted in the dictated addendum note Assessment: Vital Signs/I&O: Vital Signs Date Time Temp Pulse Resp B/P (MAP) Pulse Ox O2 Delivery O2 Flow Rate FiO2 01/19/21 20:27 93 118/70 01/19/21 16:10 99.0 20 98 Room Air I & O 01/18/21 01/18/21 01/19/21 15:00 23:00 07:00 Intake Total 560 ml 360 ml Balance 560 ml 360 ml Current Medications: Meds: Current Medications Medications (Trade) Dose Ordered Sig/Lita Route PRN Reason Start Time Stop Time Status Last Admin Dose Admin Quetiapine Fumarate (SEROquel) 25 mg QHS PO 01/19/21 21:00 01/19/21 20:27 I have reviewed the current psychotropics carefully including drug interactions. Risk benefit ratio favors no change other than as noted in my dictated progress note. Diagnosis: Problems: (1) Impulse control disorder, unspecified (2) Anxiety disorder, unspecified (3) Dementia, vascular, with depression (4) Dementia, vascular, with delusions (5) Dementia in Alzheimer's disease with depression (6) Dementia in Alzheimer's disease with delusions (7) Dementia of the Alzheimer's type with early onset with behavioral disturbance (8) Major neurocognitive disorder SHIRLEY FRANKLIN MD Jan 19, 2021 21:33
--- NOTE | 2021-01-19 23:31 | NUR ---
Patient is in the day room on assumption of care. She is disorganized, confused, delusional. Continues to ask about her dog, believing it to be here in the hospital someplace, and thinks we are keeping it from her. She does redirect for a short period of time, and then returns to being preoccupied with her dog. Due to day nurse reporting medication refusal/resistance, her medications were given crushed and mixed with chocolate ensure. She consumed it all without issue. While in the day room, she began to get agitated about the whole dog situation. Redirection at that time unsuccessful. PRN Zydis crushed and mixed with chocolate milk given at 2114, with good effect. No further agitation. Patient denies any pain or discomfort. She appears to be sleeping comfortably at present time. Will continue to monitor.
[2021-01-20 05:59] VITALS: BP 106/54
[2021-01-20] MEDS: ASPIRIN ENTERIC COATED 81 MG TABLET.DR. PO SCH (08:02)
[2021-01-20] MEDS: DONEPEZIL HCL 5 MG TABLET. PO SCH (08:02)
[2021-01-20] MEDS: buPROPion SR 100 MG TABLET.SA. PO SCH (08:02)
[2021-01-20] MEDS: amLODIPine BESYLATE 5 MG TABLET PO SCH (08:03)
[2021-01-20] MEDS: MIRABEGRON 25 MG TAB.ER.24H PO SCH (08:03)
--- NOTE | 2021-01-20 09:20 | PDOC ---
Exam Note: Jose R Note: This note is a late entry for 01/19/2021 covers elements not covered in my initial note. Subjective: The patient was reviewed in the morning of 01/19/2021 for a treatment team meeting with Elisabeth Gauthier, Beth Bowling and Lola (social media marketing specialist), Claudine, activity therapy and Taina WALDEN, discussed and reviewed the chart. The patient slept 3 hours previous night. Reportedly, the family states her dog was put to sleep but her DPOA son states not to inform her. Previous night she was delusional, believed she was at work, nothing could change this around, tonmonica I addressed with her and she was able to accept the fact that she is not working but talking about wanting to go home because her dog is sick. At one point she was given Zyprexa p.r.n. because she was extremely psychotic, agitated and she was then spitting at the nursing staff, believed she was here at work. She has attended 4 groups, fixated on time, sang during one of the groups on Saturday. Family has agreed to a placement rather than returning home, possibly at [facility]. Review of Systems: No CV, , pulmonary, eye, ENT system symptoms on review. Ambulation impaired in wheelchair. Mental Status Exam: The patient is oriented herself. Insight and judgement, recent and remote memory, attention and concentration, fund of knowledge is poor consistent with her diagnoses. Laboratory Data: Reviewed. Impression: Major neurocognitive disorder Alzheimer vascular with delusion, depression, behavioral disturbance. Anxiety disorder unspecified. Major depressive disorder. Plan: No change from initial note. Assessment: Vital Signs/I&O: Vital Signs Date Time Temp Pulse Resp B/P (MAP) Pulse Ox O2 Delivery O2 Flow Rate FiO2 01/20/21 08:03 59 106/54 01/20/21 05:59 97.7 16 96 01/19/21 16:10 Room Air I & O 01/19/21 01/19/21 01/20/21 15:00 23:00 07:00 Intake Total 560 ml 360 ml Balance 560 ml 360 ml Current Medications: Meds: Current Medications Medications (Trade) Dose Ordered Sig/Lita Route PRN Reason Start Time Stop Time Status Last Admin Dose Admin Amlodipine Besylate (Norvasc) 5 mg DAILY PO 01/13/21 09:00 01/20/21 08:03 Aspirin (Aspirin Enteric Coated) 81 mg DAILY PO 01/13/21 09:00 01/20/21 08:02 Bupropion HCl (Wellbutrin Sr) 100 mg DAILY PO 01/13/21 09:00 01/13/21 12:05 DC 01/13/21 08:13 Donepezil HCl (Aricept) 5 mg DAILY PO 01/13/21 09:00 01/20/21 08:02 Metoprolol Succinate (Toprol Xl) 12.5 mg HS PO 01/12/21 21:00 01/19/21 20:27 Sertraline HCl (Zoloft) 25 mg DAILY PO 01/13/21 09:00 01/13/21 12:05 DC 01/13/21 08:13 Mirabegron (Myrbetriq) 50 mg DAILY PO 01/13/21 09:00 01/20/21 08:03 Acetaminophen (Tylenol) 650 mg PRN Q6HRS PRN PO MILD PAIN / TEMP > 100.3'F 01/12/21 15:30 Multi-Ingredient Ointment (Analgesic [place]) 1 mercedez PRN QID PRN TP MUSCLE PAIN 01/12/21 15:30 Al Hydroxide/Mg Hydroxide (Mylanta Plus Xs) 15 ml PRN AFTMEALHC PRN PO DYSPEPSIA 01/12/21 15:30 Magnesium Hydroxide (Milk Of Magnesia) 2,400 mg PRN QHS PRN PO CONSTIPATION 01/12/21 15:30 Sertraline HCl (Zoloft) 50 mg DAILY PO 01/14/21 09:00 01/13/21 12:10 DC Sertraline HCl (Zoloft) 25 mg DAILY PO 01/14/21 09:00 01/13/21 12:16 DC Bupropion HCl (Wellbutrin Sr) 100 mg DAILY PO 01/14/21 09:00 01/20/21 08:02 Vitamin D (Vitamin D3) 50,000 unit WEEKLY PO 01/13/21 18:45 01/13/21 19:31 DC Vitamin D (Vitamin D3) 50,000 unit WEEKLY PO 01/14/21 09:00 01/14/21 08:14 Olanzapine (ZyPREXA ZYDIS) 2.5 mg PRN Q2HR PRN PO PSYCHOSIS 01/18/21 13:30 01/19/21 21:19 Quetiapine Fumarate (SEROquel) 25 mg QHS PO 01/19/21 21:00 01/19/21 20:27 Current Medications Medications (Trade) Dose Ordered Sig/Lita Route PRN Reason Start Time Stop Time Status Last Admin Dose Admin Quetiapine Fumarate (SEROquel) 25 mg QHS PO 01/19/21 21:00 01/19/21 20:27 I have reviewed the current psychotropics carefully including drug interactions. Risk benefit ratio favors no change other than as noted in my dictated progress note. Diagnosis: Problems: (1) Impulse control disorder, unspecified (2) Anxiety disorder, unspecified (3) Dementia, vascular, with depression (4) Dementia, vascular, with delusions (5) Dementia in Alzheimer's disease with depression (6) Dementia in Alzheimer's disease with delusions (7) Dementia of the Alzheimer's type with early onset with behavioral disturbance (8) Major neurocognitive disorder SHIRLEY FRANKLIN MD Jan 20, 2021 09:20
--- NOTE | 2021-01-20 11:26 | NUR ---
Spoke with Dr Villafuerte to clarify/confirm order given on 01/19/21 to start Seroquel [address] Villafuerte confirmed order.
--- NOTE | 2021-01-20 12:53 | NUR ---
Pt begins the day agitated and argumentative with staff. She insists that she was told the day prior that she was leaving today, that she just realized that she is in a hospital, and that before her arrival to [facility] she was ensured that she would be allowed to bring her dog to the hospital. She appears as delusional and is not receptive to any attempts at reorientation. Often, when a staff member will attempt to reorient her, her delusions will alter immediately upon hearing the reorientation that will counter the newly presented information. This shifting and alteration of delusions keeps her in a constant state of conflict with reality and staff. She was complaint this morning with scheduled morning medications, during lunch PRN Zyprexa 2.5 mg was administered via Ensure d/t her continuous argumentative and antagonizing behaviors r/t her delusions and irritability.
--- NOTE | 2021-01-20 15:19 | NUR ---
Pt's son/DPOA called and asked to speak with pt to see how she was doing. This nurse reiterated boundaries of appropriate communication to son/DPOA and stated that should pt engage in threats or harassment over the phone the conversation will have to end. He verbalized understanding. During phone conversation pt spoke of her displeasure of [facility] and how she would like to leave. What son/DPOA was saying on the other end could not be heard, however pt became mad and threw the phone on the ground angrily, breaking it. This is the 2nd time pt has thrown and broke [facility] property, in particular, the phone. This nurse spoke with pt matter of factly and explained that the phone is not her property and engaging in destructive acts cannot be tolerated and she may lose the right to use the phone if it continues. Pt replied, "It's my phone." When corrected to the fact that it was [facility]'s property she replied, "Well when I leave I'm going to use MY phone and call a diathermy equipment repairer on you. I'm signing out AMA anyways."
[2021-01-20 15:48] VITALS: BP 117/70
[2021-01-20] MEDS: METOPROLOL SUCC 24HR ER 25 MG TAB.ER.24H. PO SCH (19:59)
[2021-01-20] MEDS: QUEtiapine 25 MG TABLET. PO SCH (19:59)
--- NOTE | 2021-01-20 22:08 | PDOC ---
Exam Note: Jose R Note: Please also refer to the separate dictated note~for this date of service dictated separately.~Patient seen individually. Discussed the patient with Nursing staff reviewed the chart.~Reviewed interim history and current functioning. Reviewed vital signs,~Labs/ Radiology~and current medications noted below. Continue current treatment with the changes noted in the dictated addendum note Assessment: Vital Signs/I&O: Vital Signs Date Time Temp Pulse Resp B/P (MAP) Pulse Ox O2 Delivery O2 Flow Rate FiO2 01/20/21 19:59 87 117/70 01/20/21 15:48 97.7 20 98 Room Air I & O 01/19/21 01/19/21 01/20/21 14:59 22:59 06:59 Intake Total 560 ml 360 ml Balance 560 ml 360 ml Current Medications: Meds: Current Medications Medications (Trade) Dose Ordered Sig/Lita Route PRN Reason Start Time Stop Time Status Last Admin Dose Admin Amlodipine Besylate (Norvasc) 5 mg DAILY PO 01/13/21 09:00 01/20/21 08:03 Aspirin (Aspirin Enteric Coated) 81 mg DAILY PO 01/13/21 09:00 01/20/21 08:02 Bupropion HCl (Wellbutrin Sr) 100 mg DAILY PO 01/13/21 09:00 01/13/21 12:05 DC 01/13/21 08:13 Donepezil HCl (Aricept) 5 mg DAILY PO 01/13/21 09:00 01/20/21 08:02 Metoprolol Succinate (Toprol Xl) 12.5 mg HS PO 01/12/21 21:00 01/20/21 19:59 Sertraline HCl (Zoloft) 25 mg DAILY PO 01/13/21 09:00 01/13/21 12:05 DC 01/13/21 08:13 Mirabegron (Myrbetriq) 50 mg DAILY PO 01/13/21 09:00 01/20/21 08:03 Acetaminophen (Tylenol) 650 mg PRN Q6HRS PRN PO MILD PAIN / TEMP > 100.3'F 01/12/21 15:30 Multi-Ingredient Ointment (Analgesic [place]) 1 mercedez PRN QID PRN TP MUSCLE PAIN 01/12/21 15:30 Al Hydroxide/Mg Hydroxide (Mylanta Plus Xs) 15 ml PRN AFTMEALHC PRN PO DYSPEPSIA 01/12/21 15:30 Magnesium Hydroxide (Milk Of Magnesia) 2,400 mg PRN QHS PRN PO CONSTIPATION 01/12/21 15:30 Sertraline HCl (Zoloft) 50 mg DAILY PO 01/14/21 09:00 01/13/21 12:10 DC Sertraline HCl (Zoloft) 25 mg DAILY PO 01/14/21 09:00 01/13/21 12:16 DC Bupropion HCl (Wellbutrin Sr) 100 mg DAILY PO 01/14/21 09:00 01/20/21 08:02 Vitamin D (Vitamin D3) 50,000 unit WEEKLY PO 01/13/21 18:45 01/13/21 19:31 DC Vitamin D (Vitamin D3) 50,000 unit WEEKLY PO 01/14/21 09:00 01/14/21 08:14 Olanzapine (ZyPREXA ZYDIS) 2.5 mg PRN Q2HR PRN PO PSYCHOSIS 01/18/21 13:30 01/20/21 19:59 Quetiapine Fumarate (SEROquel) 25 mg QHS PO 01/19/21 21:00 01/20/21 19:59 I have reviewed the current psychotropics carefully including drug interactions. Risk benefit ratio favors no change other than as noted in my dictated progress note. Diagnosis: Problems: (1) Impulse control disorder, unspecified (2) Anxiety disorder, unspecified (3) Dementia, vascular, with depression (4) Dementia, vascular, with delusions (5) Dementia in Alzheimer's disease with depression (6) Dementia in Alzheimer's disease with delusions (7) Dementia of the Alzheimer's type with early onset with behavioral disturbance (8) Major neurocognitive disorder SHIRLEY FRANKLIN MD Jan 20, 2021 22:08
--- NOTE | 2021-01-20 23:11 | NUR ---
Patient is located in the day room on assumption of care. She is pleasant at that time. Compliant with assessments and medications crushed and mixed with chocolate ensure. Due to day shift report on patient behaviors and resistance to redirection, PRN Zydis given with HS medications. Patient has voiced no delusions so far this shift, only mentioning her dog in passing. 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 Denies any pain or discomfort. Denies SI. Cooperative with HS cares and appears to be sleeping comfortably at present time. Will continue to monitor.
[2021-01-21 06:14] VITALS: BP 121/63
[2021-01-21] MEDS: ASPIRIN ENTERIC COATED 81 MG TABLET.DR. PO SCH (07:52)
[2021-01-21] MEDS: amLODIPine BESYLATE 5 MG TABLET PO SCH (07:52)
[2021-01-21] MEDS: buPROPion SR 100 MG TABLET.SA. PO SCH (07:52)
[2021-01-21] MEDS: DONEPEZIL HCL 5 MG TABLET. PO SCH (07:53)
[2021-01-21] MEDS: CHOLECALCIFEROL (VITAMIN D3) 50,000 UNIT CAPSULE PO SCH (07:57)
[2021-01-21] MEDS: MIRABEGRON 25 MG TAB.ER.24H PO SCH (07:58)
--- NOTE | 2021-01-21 09:22 | PDOC ---
Exam Note: Jose R Note: This note is a late entry for 01/20/2021 covers elements not covered in my initial note. Subjective: The patient was seen individually in the evening of 01/20/2021 with Taina WALDEN, discussed and reviewed the chart. The patient slept 6-1/2 hours previous night. She was started on Seroquel 25 mg h.s. on 01/19 due to psychotic symptoms. She has been less agitated today but at one time was quite paranoid, fixated on discharge, been looking for her dog and did receive some Zyprexa h.s. previous night and used as p.r.n. today which seemed to help. She slept till noon and was up after lunch and then delusional, fixated that she was leaving today. At one point she was talking to her son over the phone wanting him to discharge her and when he refused she got agitated, threw the phone on the floor and broke it. Review of Systems: No CV, , pulmonary, eye, ENT system symptoms on review. Ambulation impaired in wheelchair. Mental Status Exam: The patient is oriented herself. Insight and judgement, recent and remote memory, attention and concentration, fund of knowledge is poor consistent with her diagnoses. Laboratory Data: Reviewed. Impression: Major neurocognitive disorder Alzheimer vascular with delusion, depression, behavioral disturbance. Anxiety disorder unspecified. Major depressive disorder. Plan: No change from initial note. We will continue Zyprexa p.r.n., Seroquel schedule was added. She remains on Wellbutrin, Aricept. Make further adjustments as clinically indicated. Assessment: Vital Signs/I&O: Vital Signs Date Time Temp Pulse Resp B/P (MAP) Pulse Ox O2 Delivery O2 Flow Rate FiO2 01/21/21 07:52 60 121/63 01/21/21 06:14 97.9 16 99 01/20/21 15:48 Room Air I & O 01/20/21 01/20/21 01/21/21 15:00 23:00 07:00 Intake Total 240 ml 360 ml Balance 240 ml 360 ml Current Medications: Meds: Current Medications Medications (Trade) Dose Ordered Sig/Lita Route PRN Reason Start Time Stop Time Status Last Admin Dose Admin Amlodipine Besylate (Norvasc) 5 mg DAILY PO 01/13/21 09:00 01/21/21 07:52 Aspirin (Aspirin Enteric Coated) 81 mg DAILY PO 01/13/21 09:00 01/21/21 07:52 Bupropion HCl (Wellbutrin Sr) 100 mg DAILY PO 01/13/21 09:00 01/13/21 12:05 DC 01/13/21 08:13 Donepezil HCl (Aricept) 5 mg DAILY PO 01/13/21 09:00 01/21/21 07:53 Metoprolol Succinate (Toprol Xl) 12.5 mg HS PO 01/12/21 21:00 01/20/21 19:59 Sertraline HCl (Zoloft) 25 mg DAILY PO 01/13/21 09:00 01/13/21 12:05 DC 01/13/21 08:13 Mirabegron (Myrbetriq) 50 mg DAILY PO 01/13/21 09:00 01/21/21 07:58 Acetaminophen (Tylenol) 650 mg PRN Q6HRS PRN PO MILD PAIN / TEMP > 100.3'F 01/12/21 15:30 Multi-Ingredient Ointment (Analgesic [place]) 1 mercedez PRN QID PRN TP MUSCLE PAIN 01/12/21 15:30 Al Hydroxide/Mg Hydroxide (Mylanta Plus Xs) 15 ml PRN AFTMEALHC PRN PO DYSPEPSIA 01/12/21 15:30 Magnesium Hydroxide (Milk Of Magnesia) 2,400 mg PRN QHS PRN PO CONSTIPATION 01/12/21 15:30 Sertraline HCl (Zoloft) 50 mg DAILY PO 01/14/21 09:00 01/13/21 12:10 DC Sertraline HCl (Zoloft) 25 mg DAILY PO 01/14/21 09:00 01/13/21 12:16 DC Bupropion HCl (Wellbutrin Sr) 100 mg DAILY PO 01/14/21 09:00 01/21/21 07:52 Vitamin D (Vitamin D3) 50,000 unit WEEKLY PO 01/13/21 18:45 01/13/21 19:31 DC Vitamin D (Vitamin D3) 50,000 unit WEEKLY PO 01/14/21 09:00 01/21/21 07:57 Olanzapine (ZyPREXA ZYDIS) 2.5 mg PRN Q2HR PRN PO PSYCHOSIS 01/18/21 13:30 3/19/21 19:59 Quetiapine Fumarate (SEROquel) 25 mg QHS PO 01/19/21 21:00 01/20/21 19:59 I have reviewed the current psychotropics carefully including drug interactions. Risk benefit ratio favors no change other than as noted in my dictated progress note. Diagnosis: Problems: (1) Impulse control disorder, unspecified (2) Anxiety disorder, unspecified (3) Dementia, vascular, with depression (4) Dementia, vascular, with delusions (5) Dementia in Alzheimer's disease with depression (6) Dementia in Alzheimer's disease with delusions (7) Dementia of the Alzheimer's type with early onset with behavioral disturbance (8) Major neurocognitive disorder SHIRLEY FRANKLIN MD Jan 21, 2021 09:22
[2021-01-21 15:57] VITALS: BP 107/67
--- NOTE | 2021-01-21 17:59 | NUR ---
Pt up in for meals and has been out in halls. Has been irritable and has approached staff repeatedly asking to go home and cares for ailing dog. Asked for phone to call . Has been compliant with meds and cares thus far.
[2021-01-21] MEDS: QUEtiapine 25 MG TABLET. PO SCH (19:57)
[2021-01-21] MEDS: METOPROLOL SUCC 24HR ER 25 MG TAB.ER.24H. PO SCH (19:57)
--- NOTE | 2021-01-21 21:28 | PDOC ---
Exam Note: Jose R Note: Please also refer to the separate dictated note~for this date of service dictated separately.~Patient seen individually. Discussed the patient with Nursing staff reviewed the chart.~Reviewed interim history and current functioning. Reviewed vital signs,~Labs/ Radiology~and current medications noted below. Continue current treatment with the changes noted in the dictated addendum note Assessment: Vital Signs/I&O: Vital Signs Date Time Temp Pulse Resp B/P (MAP) Pulse Ox O2 Delivery O2 Flow Rate FiO2 01/21/21 19:57 85 107/67 01/21/21 15:57 98.4 18 97 Room Air I & O 01/20/21 01/20/21 01/21/21 15:00 23:00 07:00 Intake Total 240 ml 360 ml Balance 240 ml 360 ml Current Medications: Meds: Current Medications Medications (Trade) Dose Ordered Sig/Lita Route PRN Reason Start Time Stop Time Status Last Admin Dose Admin Amlodipine Besylate (Norvasc) 5 mg DAILY PO 01/13/21 09:00 01/21/21 07:52 Aspirin (Aspirin Enteric Coated) 81 mg DAILY PO 01/13/21 09:00 01/21/21 07:52 Bupropion HCl (Wellbutrin Sr) 100 mg DAILY PO 01/13/21 09:00 01/13/21 12:05 DC 01/13/21 08:13 Donepezil HCl (Aricept) 5 mg DAILY PO 01/13/21 09:00 01/21/21 07:53 Metoprolol Succinate (Toprol Xl) 12.5 mg HS PO 01/12/21 21:00 01/21/21 19:57 Sertraline HCl (Zoloft) 25 mg DAILY PO 01/13/21 09:00 01/13/21 12:05 DC 01/13/21 08:13 Mirabegron (Myrbetriq) 50 mg DAILY PO 01/13/21 09:00 01/21/21 07:58 Acetaminophen (Tylenol) 650 mg PRN Q6HRS PRN PO MILD PAIN / TEMP > 100.3'F 01/12/21 15:30 Multi-Ingredient Ointment (Analgesic [place]) 1 mercedez PRN QID PRN TP MUSCLE PAIN 01/12/21 15:30 Al Hydroxide/Mg Hydroxide (Mylanta Plus Xs) 15 ml PRN AFTMEALHC PRN PO DYSPEPSIA 01/12/21 15:30 Magnesium Hydroxide (Milk Of Magnesia) 2,400 mg PRN QHS PRN PO CONSTIPATION 01/12/21 15:30 Sertraline HCl (Zoloft) 50 mg DAILY PO 01/14/21 09:00 01/13/21 12:10 DC Sertraline HCl (Zoloft) 25 mg DAILY PO 01/14/21 09:00 01/13/21 12:16 DC Bupropion HCl (Wellbutrin Sr) 100 mg DAILY PO 01/14/21 09:00 01/21/21 07:52 Vitamin D (Vitamin D3) 50,000 unit WEEKLY PO 01/13/21 18:45 01/13/21 19:31 DC Vitamin D (Vitamin D3) 50,000 unit WEEKLY PO 01/14/21 09:00 01/21/21 07:57 Olanzapine (ZyPREXA ZYDIS) 2.5 mg PRN Q2HR PRN PO PSYCHOSIS 01/18/21 13:30 01/21/21 19:58 Quetiapine Fumarate (SEROquel) 25 mg QHS PO 01/19/21 21:00 01/21/21 19:57 I have reviewed the current psychotropics carefully including drug interactions. Risk benefit ratio favors no change other than as noted in my dictated progress note. Diagnosis: Problems: (1) Impulse control disorder, unspecified (2) Anxiety disorder, unspecified (3) Dementia, vascular, with depression (4) Dementia, vascular, with delusions (5) Dementia in Alzheimer's disease with depression (6) Dementia in Alzheimer's disease with delusions (7) Dementia of the Alzheimer's type with early onset with behavioral disturbance (8) Major neurocognitive disorder SHIRLEY FRANKLIN MD Jan 21, 2021 21:28
--- NOTE | 2021-01-21 23:08 | NUR ---
Patient is located in the day room on assumption of care. She is pleasant at that time. Compliant with assessments and medications crushed and mixed with vanilla ensure. No agitation. She was able to have an appropriate conversation with her son Santos. Denies SI. Patient became restless after going to bed. Insistent that she is at [employer] [facility], where she works, and wants to speak with HR about tendering her resignation. Redirected patient and assisted her to the secured hallway. PRN Zydis given as well as Tylenol for complaints of a backache. She spent some time wiping down the doors and handrails with hygiene wipes, then asked to go back to bed. She is currently sitting in bed quietly. Will continue to monitor.
[2021-01-22 06:32] VITALS: BP 104/65
[2021-01-22] MEDS: buPROPion SR 100 MG TABLET.SA. PO SCH (07:44)
[2021-01-22] MEDS: ASPIRIN ENTERIC COATED 81 MG TABLET.DR. PO SCH (07:44)
[2021-01-22] MEDS: DONEPEZIL HCL 5 MG TABLET. PO SCH (07:45)
[2021-01-22] MEDS: amLODIPine BESYLATE 5 MG TABLET PO SCH (07:47)
[2021-01-22] MEDS: MIRABEGRON 25 MG TAB.ER.24H PO SCH (07:47)
[2021-01-22 07:51] LABS: BASO # 0.1 x10^3/uL (0.0-0.2); BASO % 1 % (0-3); EOS # 0.1 x10^3/uL (0.0-0.7); EOS % 2 % (0-3); HEMATOCRIT 37.5 % (36.0-47.0); HEMOGLOBIN 12.1 g/dL (12.0-15.5); LYMPH # 1.1 x10^3/uL (1.0-4.8); LYMPH % 20 % (24-48); MEAN CORPUSCULAR HEMOGLOBIN 28 pg (25-35); MEAN CORPUSCULAR HGB CONC 32 g/dL (31-37); MEAN CORPUSCULAR VOLUME 87 fL (79-100); MONO # 0.3 x10^3/uL (0.0-1.1); MONO % 6 % (0-9); NEUT # 3.8 x10^3uL (1.8-7.7); NEUT % 70 % (31-73); PLATELET COUNT 276 x10^3/uL (140-400); RED CELL DISTRIBUTION WIDTH 14.5 % (11.5-14.5); WHITE BLOOD COUNT 5.4 x10^3/uL (4.0-11.0)
[2021-01-22 07:59] LABS: ALBUMIN 3.3 g/dL (3.4-5.0); ALBUMIN/GLOBULIN RATIO 0.8 (1.0-1.7); CALCIUM 9.6 mg/dL (8.5-10.1); CREATININE 1.1 mg/dL (0.6-1.0); GFR 48.6; POTASSIUM 4.2 mmol/L (3.5-5.1); TOTAL BILIRUBIN 0.3 mg/dL (0.2-1.0); TOTAL PROTEIN 7.2 g/dL (6.4-8.2)
[2021-01-22 16:12] VITALS: BP 129/74
--- NOTE | 2021-01-22 16:24 | NUR ---
Pt has been restless and impulsive most of day. Attempting to stand up and out of chair. Alarm in place. Has been compliant with meds and cares.
[2021-01-22] MEDS: QUEtiapine 25 MG TABLET. PO SCH (20:03)
[2021-01-22] MEDS: METOPROLOL SUCC 24HR ER 25 MG TAB.ER.24H. PO SCH (20:03)
--- NOTE | 2021-01-22 22:09 | PDOC ---
Exam Note: Jose R Note: Please also refer to the separate dictated note~for this date of service dictated separately.~Patient seen individually. Discussed the patient with Nursing staff reviewed the chart.~Reviewed interim history and current functioning. Reviewed vital signs,~Labs/ Radiology~and current medications noted below. Continue current treatment with the changes noted in the dictated addendum note Assessment: Vital Signs/I&O: Vital Signs Date Time Temp Pulse Resp B/P (MAP) Pulse Ox O2 Delivery O2 Flow Rate FiO2 01/22/21 20:03 72 129/74 01/22/21 16:12 97.3 20 97 01/22/21 06:32 Room Air I & O 01/21/21 01/21/21 01/22/21 15:00 23:00 07:00 Intake Total 600 ml 480 ml Balance 600 ml 480 ml Labs: Laboratory Tests Test 01/22/21 07:28 White Blood Count 5.4 x10^3/uL (4.0-11.0) Red Blood Count 4.30 x10^6/uL (3.50-5.40) Hemoglobin 12.1 g/dL (12.0-15.5) Hematocrit 37.5 % (36.0-47.0) Mean Corpuscular Volume 87 fL (79-100) Mean Corpuscular Hemoglobin 28 pg (25-35) Mean Corpuscular Hemoglobin Concent 32 g/dL (31-37) Red Cell Distribution Width 14.5 % (11.5-14.5) Platelet Count 276 x10^3/uL (140-400) Neutrophils (%) (Auto) 70 % (31-73) Lymphocytes (%) (Auto) 20 % (24-48) L Monocytes (%) (Auto) 6 % (0-9) Eosinophils (%) (Auto) 2 % (0-3) Basophils (%) (Auto) 1 % (0-3) Neutrophils # (Auto) 3.8 x10^3uL (1.8-7.7) Lymphocytes # (Auto) 1.1 x10^3/uL (1.0-4.8) Monocytes # (Auto) 0.3 x10^3/uL (0.0-1.1) Eosinophils # (Auto) 0.1 x10^3/uL (0.0-0.7) Basophils # (Auto) 0.1 x10^3/uL (0.0-0.2) Sodium Level 142 mmol/L (136-145) Potassium Level 4.2 mmol/L (3.5-5.1) Chloride Level 105 mmol/L (98-107) Carbon Dioxide Level 29 mmol/L (21-32) Anion Gap 8 (6-14) Blood Urea Nitrogen 46 mg/dL (7-20) H Creatinine 1.1 mg/dL (0.6-1.0) H Estimated GFR (Cockcroft-Gault) 48.6 BUN/Creatinine Ratio 42 (6-20) H Glucose Level 104 mg/dL (70-99) H Calcium Level 9.6 mg/dL (8.5-10.1) Total Bilirubin 0.3 mg/dL (0.2-1.0) Aspartate Amino Transferase (AST) 27 U/L (15-37) Alanine Aminotransferase (ALT) 32 U/L (14-59) Alkaline Phosphatase 107 U/L (46-116) Total Protein 7.2 g/dL (6.4-8.2) Albumin 3.3 g/dL (3.4-5.0) L Albumin/Globulin Ratio 0.8 (1.0-1.7) L Current Medications: Meds: Current Medications Medications (Trade) Dose Ordered Sig/Lita Route PRN Reason Start Time Stop Time Status Last Admin Dose Admin Quetiapine Fumarate (SEROquel) 50 mg QHS PO 01/22/21 21:00 01/22/21 20:03 I have reviewed the current psychotropics carefully including drug interactions. Risk benefit ratio favors no change other than as noted in my dictated progress note. Diagnosis: Problems: (1) Impulse control disorder, unspecified (2) Anxiety disorder, unspecified (3) Dementia, vascular, with depression (4) Dementia, vascular, with delusions (5) Dementia in Alzheimer's disease with depression (6) Dementia in Alzheimer's disease with delusions (7) Dementia of the Alzheimer's type with early onset with behavioral disturb ance (8) Major neurocognitive disorder SHIRLEY FRANKLIN MD Jan 22, 2021 22:09
--- NOTE | 2021-01-22 23:52 | NUR ---
Patient fell asleep on the couch in the day room while watching TV. Nurse woke patient up to take her meds, patient then had a snack and was assisted to bed shortly after that. Patients son called at 2014 and patient was sleeping at that time. Patient was cooperative and med compliant, no delusions noted at this time. Will continue to monitor.
[2021-01-23 06:51] VITALS: BP 125/76
[2021-01-23] MEDS: ASPIRIN ENTERIC COATED 81 MG TABLET.DR. PO SCH (08:21)
[2021-01-23] MEDS: DONEPEZIL HCL 5 MG TABLET. PO SCH (08:21)
[2021-01-23] MEDS: buPROPion SR 100 MG TABLET.SA. PO SCH (08:21)
[2021-01-23] MEDS: amLODIPine BESYLATE 5 MG TABLET PO SCH (08:22)
[2021-01-23] MEDS: DONEPEZIL HCL 10 MG TABLET PO SCH (08:23)
[2021-01-23] MEDS: MIRABEGRON 25 MG TAB.ER.24H PO SCH (08:23)
[2021-01-23 15:49] VITALS: BP 125/76
[2021-01-23] MEDS: QUEtiapine 25 MG TABLET. PO SCH (20:28)
[2021-01-23] MEDS: METOPROLOL SUCC 24HR ER 25 MG TAB.ER.24H. PO SCH (20:28)
--- NOTE | 2021-01-23 22:00 | PDOC ---
Exam Note: Jose R Note: Please also refer to the separate dictated note~for this date of service dictated separately.~Patient seen individually. Discussed the patient with Nursing staff reviewed the chart.~Reviewed interim history and current functioning. Reviewed vital signs,~Labs/ Radiology~and current medications noted below. Continue current treatment with the changes noted in the dictated addendum note Assessment: Vital Signs/I&O: Vital Signs Date Time Temp Pulse Resp B/P (MAP) Pulse Ox O2 Delivery O2 Flow Rate FiO2 01/23/21 20:28 98 125/76 01/23/21 15:49 98.4 18 96 01/22/21 06:32 Room Air I & O 01/22/21 01/22/21 01/23/21 15:00 23:00 07:00 Intake Total 480 ml 120 ml Balance 480 ml 120 ml Current Medications: Meds: Current Medications Medications (Trade) Dose Ordered Sig/Lita Route PRN Reason Start Time Stop Time Status Last Admin Dose Admin Donepezil HCl (Aricept) 10 mg DAILY PO 01/23/21 09:00 01/23/21 08:23 I have reviewed the current psychotropics carefully including drug interactions. Risk benefit ratio favors no change other than as noted in my dictated progress note. Diagnosis: Problems: (1) Impulse control disorder, unspecified (2) Anxiety disorder, unspecified (3) Dementia, vascular, with depression (4) Dementia, vascular, with delusions (5) Dementia in Alzheimer's disease with depression (6) Dementia in Alzheimer's disease with delusions (7) Dementia of the Alzheimer's type with early onset with behavioral disturbance (8) Major neurocognitive disorder SHIRLEY FRANKLIN MD Jan 23, 2021 22:00
--- NOTE | 2021-01-24 | NUR ---
Patient has been asking many times to call her son, Johnathan. She is preoccupied with the health of her dog that her son is watching. Patient does NOT know that her dog was put to sleep last week and the family does not want her to be told. Patient spoke to Johnathan on the phone for about 10 minutes and then gave the phone back. She was much calmer after speaking to him. Patient compliant with medications and cares. She has been pleasant this evening.
[2021-01-24 06:06] VITALS: BP 98/61
--- NOTE | 2021-01-24 08:38 | PDOC ---
Exam Note: Jose R Note: This note is a late entry for 01/21/2021 covers elements not covered in my initial note. Subjective: The patient was seen individually in the morning of 01/21/2021 with Vaishnavi WALDEN, discussed and reviewed the chart. The patient slept 4-3/4 hours previous night. She did well previous night and in the morning she was singing but anxious. She remains confused. She is obsessing as before about discharge plans and getting back to her dog. I addressed this with her. In fact the dog has and the family did not want her to know about it. Review of Systems: No CV, , pulmonary, eye, ENT system symptoms on review. Ambulation impaired in wheelchair. Mental Status Exam: The patient is oriented herself. Insight and judgement, recent and remote memory, attention and concentration, fund of knowledge is poor consistent with her diagnoses. Laboratory Data: Reviewed. Impression: Major neurocognitive disorder Alzheimer vascular with delusion, depression, behavioral disturbance. Anxiety disorder unspecified. Major depressive disorder. Plan: No change from initial note. Assessment: Vital Signs/I&O: Vital Signs Date Time Temp Pulse Resp B/P (MAP) Pulse Ox O2 Delivery O2 Flow Rate FiO2 01/24/21 06:06 98.6 70 20 98/61 (73) 94 01/22/21 06:32 Room Air I & O 01/23/21 01/23/21 01/24/21 15:00 23:00 07:00 Intake Total 360 ml 570 ml Balance 360 ml 570 ml Current Medications: Meds: Current Medications Medications (Trade) Dose Ordered Sig/Lita Route PRN Reason Start Time Stop Time Status Last Admin Dose Admin Amlodipine Besylate (Norvasc) 5 mg DAILY PO 01/13/21 09:00 01/23/21 08:22 Aspirin (Aspirin Enteric Coated) 81 mg DAILY PO 01/13/21 09:00 01/23/21 08:21 Bupropion HCl (Wellbutrin Sr) 100 mg DAILY PO 01/13/21 09:00 01/13/21 12:05 DC 01/13/21 08:13 Donepezil HCl (Aricept) 5 mg DAILY PO 01/13/21 09:00 01/23/21 08:21 Metoprolol Succinate (Toprol Xl) 12.5 mg HS PO 01/12/21 21:00 01/23/21 20:28 Sertraline HCl (Zoloft) 25 mg DAILY PO 01/13/21 09:00 01/13/21 12:05 DC 01/13/21 08:13 Mirabegron (Myrbetriq) 50 mg DAILY PO 01/13/21 09:00 01/23/21 08:23 Acetaminophen (Tylenol) 650 mg PRN Q6HRS PRN PO MILD PAIN / TEMP > 100.3'F 01/12/21 15:30 01/21/21 22:12 Multi-Ingredient Ointment (Analgesic [place]) 1 mercedez PRN QID PRN TP MUSCLE PAIN 01/12/21 15:30 Al Hydroxide/Mg Hydroxide (Mylanta Plus Xs) 15 ml PRN AFTMEALHC PRN PO DYSPEPSIA 01/12/21 15:30 Magnesium Hydroxide (Milk Of Magnesia) 2,400 mg PRN QHS PRN PO CONSTIPATION 01/12/21 15:30 Sertraline HCl (Zoloft) 50 mg DAILY PO 01/14/21 09:00 01/13/21 12:10 DC Sertraline HCl (Zoloft) 25 mg DAILY PO 01/14/21 09:00 01/13/21 12:16 DC Bupropion HCl (Wellbutrin Sr) 100 mg DAILY PO 01/14/21 09:00 01/23/21 08:21 Vitamin D (Vitamin D3) 50,000 unit WEEKLY PO 01/13/21 18:45 01/13/21 19:31 DC Vitamin D (Vitamin D3) 50,000 unit WEEKLY PO 01/14/21 09:00 01/21/21 07:57 Olanzapine (ZyPREXA ZYDIS) 2.5 mg PRN Q2HR PRN PO PSYCHOSIS 01/18/21 13:30 01/21/21 22:12 Quetiapine Fumarate (SEROquel) 25 mg QHS PO 01/19/21 21:00 01/22/21 19:37 DC 01/21/21 19:57 Quetiapine Fumarate (SEROquel) 50 mg QHS PO 01/22/21 21:00 01/23/21 20:28 Donepezil HCl (Aricept) 10 mg DAILY PO 01/23/21 09:00 01/23/21 08:23 Trazodone HCl (Desyrel) 50 mg PRN QHS PRN PO INSOMNIA, MAY REPEAT X1 01/22/21 19:45 Current Medications Medications (Trade) Dose Ordered Sig/Lita Route PRN Reason Start Time Stop Time Status Last Admin Dose Admin Donepezil HCl (Aricept) 10 mg DAILY PO 01/23/21 09:00 01/23/21 08:23 I have reviewed the current psychotropics carefully including drug interactions. Risk benefit ratio favors no change other than as noted in my dictated progress note. Diagnosis: Problems: (1) Impulse control disorder, unspecified (2) Anxiety disorder, unspecified (3) Dementia, vascular, with depression (4) Dementia, vascular, with delusions (5) Dementia in Alzheimer's disease with depression (6) Dementia in Alzheimer's disease with delusions (7) Dementia of the Alzheimer's type with early onset with behavioral disturbance (8) Major neurocognitive disorder SHIRLEY FRANKLIN MD Jan 24, 2021 08:38
--- NOTE | 2021-01-24 08:55 | PDOC ---
Exam Note: Jose R Note: This note is a late entry for 01/22/2021 covers elements not covered in my initial note. Subjective: The patient was seen individually in the evening of 01/22/2021 with Vaishnavi WALDEN, discussed and reviewed the chart. The patient slept 1-1/4 hours previous night. She remains confused, less agitated, remains quite restless, obsessive about wanting to be discharged to be with her dog. Review of Systems: No CV, , pulmonary, eye, ENT system symptoms on review. Ambulation impaired in wheelchair. Mental Status Exam: The patient is oriented herself. Insight and judgement, recent and remote memory, attention and concentration, fund of knowledge is poor consistent with her diagnoses. Laboratory Data: Reviewed. Impression: Major neurocognitive disorder Alzheimer vascular with delusion, depression, behavioral disturbance. Anxiety disorder unspecified. Major depressive disorder. Plan: No change from initial note. Increase Seroquel from 25 mg h.s. to 50 mg h.s., Aricept from 5 mg a day to 10 mg a day. Start trazodone 50 mg h.s. p.r.n. insomnia. Rest unchanged from now. Assessment: Vital Signs/I&O: Vital Signs Date Time Temp Pulse Resp B/P (MAP) Pulse Ox O2 Delivery O2 Flow Rate FiO2 01/24/21 06:06 98.6 70 20 98/61 (73) 94 01/22/21 06:32 Room Air I & O 01/23/21 01/23/21 01/24/21 14:59 22:59 06:59 Intake Total 360 ml 570 ml Balance 360 ml 570 ml Current Medications: Meds: Current Medications Medications (Trade) Dose Ordered Sig/Lita Route PRN Reason Start Time Stop Time Status Last Admin Dose Admin Amlodipine Besylate (Norvasc) 5 mg DAILY PO 01/13/21 09:00 01/23/21 08:22 Aspirin (Aspirin Enteric Coated) 81 mg DAILY PO 01/13/21 09:00 01/23/21 08:21 Bupropion HCl (Wellbutrin Sr) 100 mg DAILY PO 01/13/21 09:00 01/13/21 12:05 DC 01/13/21 08:13 Donepezil HCl (Aricept) 5 mg DAILY PO 01/13/21 09:00 01/23/21 08:21 Metoprolol Succinate (Toprol Xl) 12.5 mg HS PO 01/12/21 21:00 01/23/21 20:28 Sertraline HCl (Zoloft) 25 mg DAILY PO 01/13/21 09:00 01/13/21 12:05 DC 01/13/21 08:13 Mirabegron (Myrbetriq) 50 mg DAILY PO 01/13/21 09:00 01/23/21 08:23 Acetaminophen (Tylenol) 650 mg PRN Q6HRS PRN PO MILD PAIN / TEMP > 100.3'F 01/12/21 15:30 01/21/21 22:12 Multi-Ingredient Ointment (Analgesic [place]) 1 mercedez PRN QID PRN TP MUSCLE PAIN 01/12/21 15:30 Al Hydroxide/Mg Hydroxide (Mylanta Plus Xs) 15 ml PRN AFTMEALHC PRN PO DYSPEPSIA 01/12/21 15:30 Magnesium Hydroxide (Milk Of Magnesia) 2,400 mg PRN QHS PRN PO CONSTIPATION 01/12/21 15:30 Sertraline HCl (Zoloft) 50 mg DAILY PO 01/14/21 09:00 01/13/21 12:10 DC Sertraline HCl (Zoloft) 25 mg DAILY PO 01/14/21 09:00 01/13/21 12:16 DC Bupropion HCl (Wellbutrin Sr) 100 mg DAILY PO 01/14/21 09:00 01/23/21 08:21 Vitamin D (Vitamin D3) 50,000 unit WEEKLY PO 01/13/21 18:45 01/13/21 19:31 DC Vitamin D (Vitamin D3) 50,000 unit WEEKLY PO 01/14/21 09:00 01/21/21 07:57 Olanzapine (ZyPREXA ZYDIS) 2.5 mg PRN Q2HR PRN PO PSYCHOSIS 01/18/21 13:30 01/21/21 22:12 Quetiapine Fumarate (SEROquel) 25 mg QHS PO 01/19/21 21:00 01/22/21 19:37 DC 01/21/21 19:57 Quetiapine Fumarate (SEROquel) 50 mg QHS PO 01/22/21 21:00 01/23/21 20:28 Donepezil HCl (Aricept) 10 mg DAILY PO 01/23/21 09:00 01/23/21 08:23 Trazodone HCl (Desyrel) 50 mg PRN QHS PRN PO INSOMNIA, MAY REPEAT X1 01/22/21 19:45 Current Medications Medications (Trade) Dose Ordered Sig/Lita Route PRN Reason Start Time Stop Time Status Last Admin Dose Admin Donepezil HCl (Aricept) 10 mg DAILY PO 01/23/21 09:00 01/23/21 08:23 I have reviewed the current psychotropics carefully including drug interactions. Risk benefit ratio favors no change other than as noted in my dictated progress note. Diagnosis: Problems: (1) Impulse control disorder, unspecified (2) Anxiety disorder, unspecified (3) Dementia, vascular, with depression (4) Dementia, vascular, with delusions (5) Dementia in Alzheimer's disease with depression (6) Dementia in Alzheimer's disease with delusions (7) Dementia of the Alzheimer's type with early onset with behavioral disturbance (8) Major neurocognitive disorder SHIRLEY FRANKLIN MD Jan 24, 2021 08:55
--- NOTE | 2021-01-24 09:17 | PDOC ---
Exam Note: Jose R Note: This note is a late entry for 01/23/2021 covers elements not covered in my initial note. Subjective: The patient was seen individually in the evening of 01/23/2021 with Chloé WALDEN, discussed and reviewed the chart. The patient slept 7-3/4 hours previous night. She remains confused, ready to go home, fixated on her dog who has nevertheless. She slept till 10 a.m. then came out. Review of Systems: No CV, , pulmonary, eye, ENT system symptoms on review. Ambulation impaired in wheelchair. Mental Status Exam: The patient is oriented herself. Insight and judgement, recent and remote memory, attention and concentration, fund of knowledge is poor consistent with her diagnoses. Laboratory Data: Reviewed. Impression: Major neurocognitive disorder Alzheimer vascular with delusion, depression, behavioral disturbance. Anxiety disorder unspecified. Major depressive disorder. Plan: No change from initial note. Assessment: Vital Signs/I&O: Vital Signs Date Time Temp Pulse Resp B/P (MAP) Pulse Ox O2 Delivery O2 Flow Rate FiO2 01/24/21 06:06 98.6 70 20 98/61 (73) 94 01/22/21 06:32 Room Air I & O0 01/23/21 01/23/21 01/24/21 15:00 23:00 07:00 Intake Total 360 ml 570 ml Balance 360 ml 570 ml Current Medications: Meds: Current Medications Medications (Trade) Dose Ordered Sig/Lita Route PRN Reason Start Time Stop Time Status Last Admin Dose Admin Amlodipine Besylate (Norvasc) 5 mg DAILY PO 01/13/21 09:00 01/23/21 08:22 Aspirin (Aspirin Enteric Coated) 81 mg DAILY PO 01/13/21 09:00 01/23/21 08:21 Bupropion HCl (Wellbutrin Sr) 100 mg DAILY PO 01/13/21 09:00 01/13/21 12:05 DC 01/13/21 08:13 Donepezil HCl (Aricept) 5 mg DAILY PO 01/13/21 09:00 01/23/21 08:21 Metoprolol Succinate (Toprol Xl) 12.5 mg HS PO 01/12/21 21:00 01/23/21 20:28 Sertraline HCl (Zoloft) 25 mg DAILY PO 01/13/21 09:00 01/13/21 12:05 DC 01/13/21 08:13 Mirabegron (Myrbetriq) 50 mg DAILY PO 01/13/21 09:00 01/23/21 08:23 Acetaminophen (Tylenol) 650 mg PRN Q6HRS PRN PO MILD PAIN / TEMP > 100.3'F 01/12/21 15:30 01/21/21 22:12 Multi-Ingredient Ointment (Analgesic [place]) 1 mercedez PRN QID PRN TP MUSCLE PAIN 01/12/21 15:30 Al Hydroxide/Mg Hydroxide (Mylanta Plus Xs) 15 ml PRN AFTMEALHC PRN PO DYSPEPSIA 01/12/21 15:30 Magnesium Hydroxide (Milk Of Magnesia) 2,400 mg PRN QHS PRN PO CONSTIPATION 01/12/21 15:30 Sertraline HCl (Zoloft) 50 mg DAILY PO 01/14/21 09:00 01/13/21 12:10 DC Sertraline HCl (Zoloft) 25 mg DAILY PO 01/14/21 09:00 01/13/21 12:16 DC Bupropion HCl (Wellbutrin Sr) 100 mg DAILY PO 01/14/21 09:00 01/23/21 08:21 Vitamin D (Vitamin D3) 50,000 unit WEEKLY PO 01/13/21 18:45 01/13/21 19:31 DC Vitamin D (Vitamin D3) 50,000 unit WEEKLY PO 01/14/21 09:00 01/21/21 07:57 Olanzapine (ZyPREXA ZYDIS) 2.5 mg PRN Q2HR PRN PO PSYCHOSIS 01/18/21 13:30 01/21/21 22:12 Quetiapine Fumarate (SEROquel) 25 mg QHS PO 01/19/21 21:00 01/22/21 19:37 DC 01/21/21 19:57 Quetiapine Fumarate (SEROquel) 50 mg QHS PO 01/22/21 21:00 01/23/21 20:28 Donepezil HCl (Aricept) 10 mg DAILY PO 01/23/21 09:00 01/23/21 08:23 Trazodone HCl (Desyrel) 50 mg PRN QHS PRN PO INSOMNIA, MAY REPEAT X1 01/22/21 19:45 I have reviewed the current psychotropics carefully including drug interactions. Risk benefit ratio favors no change other than as noted in my dictated progress note. Diagnosis: Problems: (1) Impulse control disorder, unspecified (2) Anxiety disorder, unspecified (3) Dementia, vascular, with depression (4) Dementia, vascular, with delusions (5) Dementia in Alzheimer's disease with depression (6) Dementia in Alzheimer's disease with delusions (7) Dementia of the Alzheimer's type with early onset with behavioral disturbance (8) Major neurocognitive disorder SHIRLEY FRANKLIN MD Jan 24, 2021 09:17
[2021-01-24] MEDS: MIRABEGRON 25 MG TAB.ER.24H PO SCH (10:15)
[2021-01-24] MEDS: ASPIRIN ENTERIC COATED 81 MG TABLET.DR. PO SCH (10:16)
[2021-01-24] MEDS: DONEPEZIL HCL 10 MG TABLET PO SCH (10:16)
[2021-01-24] MEDS: amLODIPine BESYLATE 5 MG TABLET PO SCH (10:16)
[2021-01-24] MEDS: DONEPEZIL HCL 5 MG TABLET. PO SCH (10:16)
[2021-01-24] MEDS: buPROPion SR 100 MG TABLET.SA. PO SCH (10:16)
--- NOTE | 2021-01-24 14:21 | NUR ---
Spoke to Mel in Pharmacy and she is questioning if Dr Villafuerte wants patient on Aricept 15mg or 10mg? The 10mg was added yesterday and she was already on 5mg which was not D/C'd. She was instructed that patient should be taking 10mg total. I will verify with Dr Villafuerte cancel the 5mg order.
[2021-01-24 16:31] VITALS: BP 119/83
--- NOTE | 2021-01-24 16:42 | NUR ---
LESLIE returned call to Mars at the [facility]. LESLIE informed them that pt appears to be improving; however, there still seems to be discord between pt sons as SW received 2 calls from hospice agencies wanting to know if they could aide in pt care. Both agencies reported that they spoke to the family and they believed she would need services. SW explained that pt is not hospice appropriate. She is min assist with cares, eating between 50 and 100% of meals, she has actually gained 2lbs since admission and can piece together coherent sentences. Pt does have a Dementia dx; however, is not end stage or needing the physical assistance that hospice could provide for pt at this time. [facility] is still agreeable to taking pt for admission; LESLIE will call [facility] to clarify the game plan and to update Mars on after treatment team with a definite discharge plan and date. LESLIE will also on send updated notes for them to review, as well as a medication list.
[2021-01-24] MEDS: QUEtiapine 25 MG TABLET. PO SCH (20:35)
[2021-01-24] MEDS: METOPROLOL SUCC 24HR ER 25 MG TAB.ER.24H. PO SCH (20:35)
--- NOTE | 2021-01-24 22:04 | PDOC ---
Exam Note: Jose R Note: Please also refer to the separate dictated note~for this date of service dictated separately.~Patient seen individually. Discussed the patient with Nursing staff reviewed the chart.~Reviewed interim history and current functioning. Reviewed vital signs,~Labs/ Radiology~and current medications noted below. Continue current treatment with the changes noted in the dictated addendum note Assessment: Vital Signs/I&O: Vital Signs Date Time Temp Pulse Resp B/P (MAP) Pulse Ox O2 Delivery O2 Flow Rate FiO2 01/24/21 20:35 83 119/83 01/24/21 16:31 97.8 18 98 01/22/21 06:32 Room Air I & O 01/23/21 01/23/21 01/24/21 15:00 23:00 07:00 Intake Total 360 ml 570 ml Balance 360 ml 570 ml Current Medications: Meds: Current Medications Medications (Trade) Dose Ordered Sig/Lita Route PRN Reason Start Time Stop Time Status Last Admin Dose Admin Amlodipine Besylate (Norvasc) 5 mg DAILY PO 01/13/21 09:00 01/24/21 10:16 Aspirin (Aspirin Enteric Coated) 81 mg DAILY PO 01/13/21 09:00 01/24/21 10:16 Bupropion HCl (Wellbutrin Sr) 100 mg DAILY PO 01/13/21 09:00 01/13/21 12:05 DC 01/13/21 08:13 Donepezil HCl (Aricept) 5 mg DAILY PO 01/13/21 09:00 01/25/21 14:23 01/24/21 10:16 Metoprolol Succinate (Toprol Xl) 12.5 mg HS PO 01/12/21 21:00 01/24/21 20:35 Sertraline HCl (Zoloft) 25 mg DAILY PO 01/13/21 09:00 01/13/21 12:05 DC 01/13/21 08:13 Mirabegron (Myrbetriq) 50 mg DAILY PO 01/13/21 09:00 01/24/21 10:15 Acetaminophen (Tylenol) 650 mg PRN Q6HRS PRN PO MILD PAIN / TEMP > 100.3'F 01/12/21 15:30 01/21/21 22:12 Multi-Ingredient Ointment (Analgesic [place]) 1 mercedez PRN QID PRN TP MUSCLE PAIN 01/12/21 15:30 Al Hydroxide/Mg Hydroxide (Mylanta Plus Xs) 15 ml PRN AFTMEALHC PRN PO DYSPEPSIA 01/12/21 15:30 Magnesium Hydroxide (Milk Of Magnesia) 2,400 mg PRN QHS PRN PO CONSTIPATION 01/12/21 15:30 01/24/21 10:16 Sertraline HCl (Zoloft) 50 mg DAILY PO 01/14/21 09:00 01/13/21 12:10 DC Sertraline HCl (Zoloft) 25 mg DAILY PO 01/14/21 09:00 01/13/21 12:16 DC Bupropion HCl (Wellbutrin Sr) 100 mg DAILY PO 01/14/21 09:00 01/24/21 10:16 Vitamin D (Vitamin D3) 50,000 unit WEEKLY PO 01/13/21 18:45 01/13/21 19:31 DC Vitamin D (Vitamin D3) 50,000 unit WEEKLY PO 01/14/21 09:00 01/21/21 07:57 Olanzapine (ZyPREXA ZYDIS) 2.5 mg PRN Q2HR PRN PO PSYCHOSIS 01/18/21 13:30 01/24/21 10:34 Quetiapine Fumarate (SEROquel) 25 mg QHS PO 01/19/21 21:00 01/22/21 19:37 DC 01/21/21 19:57 Quetiapine Fumarate (SEROquel) 50 mg QHS PO 01/22/21 21:00 01/24/21 20:35 Donepezil HCl (Aricept) 10 mg DAILY PO 01/23/21 09:00 01/24/21 10:16 Trazodone HCl (Desyrel) 50 mg PRN QHS PRN PO INSOMNIA, MAY REPEAT X1 01/22/21 19:45 I have reviewed the current psychotropics carefully including drug interactions. Risk benefit ratio favors no change other than as noted in my dictated progress note. Diagnosis: Problems: (1) Impulse control disorder, unspecified (2) Anxiety disorder, unspecified (3) Dementia, vascular, with depression (4) Dementia, vascular, with delusions (5) Dementia in Alzheimer's disease with depression (6) Dementia in Alzheimer's disease with delusions (7) Dementia of the Alzheimer's type with early onset with behavioral disturbance (8) Major neurocognitive disorder SHIRLEY FRANKLIN MD Jan 24, 2021 22:04
--- NOTE | 2021-01-25 00:16 | NUR ---
Patient was in day room reading a newspaper and then socializing with a male peer. She did not mention her dog and did not ask to make phone calls. Patient shared that she likes to write and draw, she has 10 grandchildren and many great grandchildren and would like to have her drawings bound into a book for them. Patient cooperative with ADLs and compliant with medications.
[2021-01-25 06:23] VITALS: BP 122/66
--- NOTE | 2021-01-25 08:57 | PDOC ---
Exam Note: Jose R Note: This note is a late entry for 01/24/2021 covers elements not covered in my initial note. Subjective: The patient was seen individually in the evening of 01/24/2021 with Geni WALDEN, discussed and reviewed the chart. The patient slept 5 hours previous night. Overall per nursing report, the patient seems more alert in the morning but by the evening she was more confused, talking about going to her work at [employer]. Review of Systems: No CV, , pulmonary, eye, ENT system symptoms on review. Ambulation impaired in wheelchair. Reliability poor. Mental Status Exam: The patient is oriented herself. Insight and judgement, recent and remote memory, attention and concentration, fund of knowledge is poor consistent with her diagnoses. Overall per nursing report, the patient is doing better, less anxious, agitated, paranoid and obsessive. Laboratory Data: Reviewed. Impression: Major neurocognitive disorder Alzheimer vascular with delusion, depression, behavioral disturbance. Anxiety disorder unspecified. Major depressive disorder. Plan: No change from initial note. Assessment: Vital Signs/I&O: Vital Signs Date Time Temp Pulse Resp B/P (MAP) Pulse Ox O2 Delivery O2 Flow Rate FiO2 01/25/21 06:23 97.9 65 16 122/66 (84) 95 01/22/21 06:32 Room Air I & O 01/24/21 01/24/21 01/25/21 14:59 22:59 06:59 Intake Total 240 ml 240 ml Balance 240 ml 240 ml Current Medications: Meds: Current Medications Medications (Trade) Dose Ordered Sig/Lita Route PRN Reason Start Time Stop Time Status Last Admin Dose Admin Amlodipine Besylate (Norvasc) 5 mg DAILY PO 01/13/21 09:00 01/24/21 10:16 Aspirin (Aspirin Enteric Coated) 81 mg DAILY PO 01/13/21 09:00 01/24/21 10:16 Bupropion HCl (Wellbutrin Sr) 100 mg DAILY PO 01/13/21 09:00 01/13/21 12:05 DC 01/13/21 08:13 Donepezil HCl (Aricept) 5 mg DAILY PO 01/13/21 09:00 01/25/21 14:23 01/24/21 10:16 Metoprolol Succinate (Toprol Xl) 12.5 mg HS PO 01/12/21 21:00 01/24/21 20:35 Sertraline HCl (Zoloft) 25 mg DAILY PO 01/13/21 09:00 01/13/21 12:05 DC 01/13/21 08:13 Mirabegron (Myrbetriq) 50 mg DAILY PO 01/13/21 09:00 01/24/21 10:15 Acetaminophen (Tylenol) 650 mg PRN Q6HRS PRN PO MILD PAIN / TEMP > 100.3'F 01/12/21 15:30 01/21/21 22:12 Multi-Ingredient Ointment (Analgesic [place]) 1 mercedez PRN QID PRN TP MUSCLE PAIN 01/12/21 15:30 Al Hydroxide/Mg Hydroxide (Mylanta Plus Xs) 15 ml PRN AFTMEALHC PRN PO DYSPEPSIA 01/12/21 15:30 Magnesium Hydroxide (Milk Of Magnesia) 2,400 mg PRN QHS PRN PO CONSTIPATION 01/12/21 15:30 01/24/21 10:16 Sertraline HCl (Zoloft) 50 mg DAILY PO 01/14/21 09:00 01/13/21 12:10 DC Sertraline HCl (Zoloft) 25 mg DAILY PO 01/14/21 09:00 01/13/21 12:16 DC Bupropion HCl (Wellbutrin Sr) 100 mg DAILY PO 01/14/21 09:00 01/24/21 10:16 Vitamin D (Vitamin D3) 50,000 unit WEEKLY PO 01/13/21 18:45 01/13/21 19:31 DC Vitamin D (Vitamin D3) 50,000 unit WEEKLY PO 01/14/21 09:00 01/21/21 07:57 Olanzapine (ZyPREXA ZYDIS) 2.5 mg PRN Q2HR PRN PO PSYCHOSIS 01/18/21 13:30 01/24/21 10:34 Quetiapine Fumarate (SEROquel) 25 mg QHS PO 01/19/21 21:00 01/22/21 19:37 DC 01/21/21 19:57 Quetiapine Fumarate (SEROquel) 50 mg QHS PO 01/22/21 21:00 01/24/21 20:35 Donepezil HCl (Aricept) 10 mg DAILY PO 01/23/21 09:00 01/24/21 10:16 Trazodone HCl (Desyrel) 50 mg PRN QHS PRN PO INSOMNIA, MAY REPEAT X1 01/22/21 19:45 I have reviewed the current psychotropics carefully including drug interactions. Risk benefit ratio favors no change other than as noted in my dictated progress note. Diagnosis: Problems: (1) Impulse control disorder, unspecified (2) Anxiety disorder, unspecified (3) Dementia, vascular, with depression (4) Dementia, vascular, with delusions (5) Dementia in Alzheimer's disease with depression (6) Dementia in Alzheimer's disease with delusions (7) Dementia of the Alzheimer's type with early onset with behavioral disturbance (8) Major neurocognitive disorder SHIRLEY FRANKLIN MD Jan 25, 2021 08:57
[2021-01-25] MEDS: ASPIRIN ENTERIC COATED 81 MG TABLET.DR. PO SCH (09:00)
[2021-01-25] MEDS: DONEPEZIL HCL 5 MG TABLET. PO SCH (09:00)
[2021-01-25] MEDS: MIRABEGRON 25 MG TAB.ER.24H PO SCH (11:19)
[2021-01-25] MEDS: buPROPion SR 100 MG TABLET.SA. PO SCH (11:20)
[2021-01-25] MEDS: DONEPEZIL HCL 10 MG TABLET PO SCH (11:20)
[2021-01-25] MEDS: amLODIPine BESYLATE 5 MG TABLET PO SCH (11:20)
[2021-01-25 16:15] VITALS: BP 117/68
[2021-01-25] MEDS: QUEtiapine 25 MG TABLET. PO SCH (20:28)
[2021-01-25] MEDS: METOPROLOL SUCC 24HR ER 25 MG TAB.ER.24H. PO SCH (20:29)
--- NOTE | 2021-01-25 22:01 | PDOC ---
Exam Note: Jose R Note: Please also refer to the separate dictated note~for this date of service dictated separately.~Patient seen individually. Discussed the patient with Nursing staff reviewed the chart.~Reviewed interim history and current functioning. Reviewed vital signs,~Labs/ Radiology~and current medications noted below. Continue current treatment with the changes noted in the dictated addendum note Assessment: Vital Signs/I&O: Vital Signs Date Time Temp Pulse Resp B/P (MAP) Pulse Ox O2 Delivery O2 Flow Rate FiO2 01/25/21 20:29 83 117/68 01/25/21 16:15 98.3 18 98 01/22/21 06:32 Room Air I & O 01/24/21 01/24/21 01/25/21 15:00 23:00 07:00 Intake Total 240 ml 240 ml Balance 240 ml 240 ml Current Medications: Meds: Current Medications Medications (Trade) Dose Ordered Sig/Lita Route PRN Reason Start Time Stop Time Status Last Admin Dose Admin Amlodipine Besylate (Norvasc) 5 mg DAILY PO 01/13/21 09:00 01/25/21 11:20 Aspirin (Aspirin Enteric Coated) 81 mg DAILY PO 01/13/21 09:00 01/25/21 09:00 Bupropion HCl (Wellbutrin Sr) 100 mg DAILY PO 01/13/21 09:00 01/13/21 12:05 DC 01/13/21 08:13 Donepezil HCl (Aricept) 5 mg DAILY PO 01/13/21 09:00 01/25/21 14:23 DC 01/24/21 10:16 Metoprolol Succinate (Toprol Xl) 12.5 mg HS PO 01/12/21 21:00 01/25/21 20:29 Sertraline HCl (Zoloft) 25 mg DAILY PO 01/13/21 09:00 01/13/21 12:05 DC 01/13/21 08:13 Mirabegron (Myrbetriq) 50 mg DAILY PO 01/13/21 09:00 01/25/21 11:19 Acetaminophen (Tylenol) 650 mg PRN Q6HRS PRN PO MILD PAIN / TEMP > 100.3'F 01/12/21 15:30 01/21/21 22:12 Multi-Ingredient Ointment (Analgesic [place]) 1 mercedez PRN QID PRN TP MUSCLE PAIN 01/12/21 15:30 Al Hydroxide/Mg Hydroxide (Mylanta Plus Xs) 15 ml PRN AFTMEALHC PRN PO DYSPEPSIA 01/12/21 15:30 Magnesium Hydroxide (Milk Of Magnesia) 2,400 mg PRN QHS PRN PO CONSTIPATION 01/12/21 15:30 01/24/21 10:16 Sertraline HCl (Zoloft) 50 mg DAILY PO 01/14/21 09:00 01/13/21 12:10 DC Sertraline HCl (Zoloft) 25 mg DAILY PO 01/14/21 09:00 01/13/21 12:16 DC Bupropion HCl (Wellbutrin Sr) 100 mg DAILY PO 01/14/21 09:00 01/25/21 11:20 Vitamin D (Vitamin D3) 50,000 unit WEEKLY PO 01/13/21 18:45 01/13/21 19:31 DC Vitamin D (Vitamin D3) 50,000 unit WEEKLY PO 01/14/21 09:00 01/21/21 07:57 Olanzapine (ZyPREXA ZYDIS) 2.5 mg PRN Q2HR PRN PO PSYCHOSIS 01/18/21 13:30 01/24/21 10:34 Quetiapine Fumarate (SEROquel) 25 mg QHS PO 01/19/21 21:00 01/22/21 19:37 DC 01/21/21 19:57 Quetiapine Fumarate (SEROquel) 50 mg QHS PO 01/22/21 21:00 01/25/21 20:28 Donepezil HCl (Aricept) 10 mg DAILY PO 01/23/21 09:00 01/25/21 11:20 Trazodone HCl (Desyrel) 50 mg PRN QHS PRN PO INSOMNIA, MAY REPEAT X1 01/22/21 19:45 I have reviewed the current psychotropics carefully including drug interactions. Risk benefit ratio favors no change other than as noted in my dictated progress note. Diagnosis: Problems: (1) Impulse control disorder, unspecified (2) Anxiety disorder, unspecified (3) Dementia, vascular, with depression (4) Dementia, vascular, with delusions (5) Dementia in Alzheimer's disease with depression (6) Dementia in Alzheimer's disease with delusions (7) Dementia of the Alzheimer's type with early onset with behavioral disturban ce (8) Major neurocognitive disorder SHIRLEY FRANKLIN MD Jan 25, 2021 22:01
--- NOTE | 2021-01-26 00:30 | NUR ---
Nursing Note Pt pleasant and cooperative and compliant, no discussion of her dog or her children. Talks to peers, and is social and pleasant. Denies complaints and no agitation or paranoia etc.
[2021-01-26 05:54] VITALS: BP 93/56
[2021-01-26] MEDS: amLODIPine BESYLATE 5 MG TABLET PO SCH (08:47)
[2021-01-26] MEDS: DONEPEZIL HCL 10 MG TABLET PO SCH (08:47)
[2021-01-26] MEDS: MIRABEGRON 25 MG TAB.ER.24H PO SCH (08:48)
[2021-01-26] MEDS: ASPIRIN ENTERIC COATED 81 MG TABLET.DR. PO SCH (08:48)
[2021-01-26] MEDS: buPROPion SR 100 MG TABLET.SA. PO SCH (08:48)
--- NOTE | 2021-01-26 10:43 | NUR ---
WEEKLY ACTIVITY THERAPY NOTE Date of Admission: 01/12/2021 Date of AT Assessment: 01/13/2021 Precipitating behaviors that initiated intake and admission: combative towards family, suspicious/paranoid towards family, unable to care for self at home, but insists on going home, increased confusion, poor intake of meals, irritable, argumentative, uncooperative Goal aimed: to increase engagement and relaxation Initial Goal: Pt. will participate in at least three Activity Therapy groups per week. Weekly progress towards goal: did not achieve, 2/3 Group participation level: 1 mod, 1 full Weekly highlights: sang to [employer] music Saturday, Horseshoes Saturday Behaviors observed: shaking door in the secured sadler on , fixated on belongings Saturday, fixated on a ride Saturday Plan: no change to goal Beneficial adaptations: gospel music
--- NOTE | 2021-01-26 11:00 | NUR ---
SW and nursing met with pt to go over the discharge plan for her to be admitted to the [facility]. Pt reported that she is not going to the [facility]. "I'd rather be than placed in a nursing institution". She was told by Johnathan that she was able to go home with him and she doesn't want to do that, but rather "be there than put in an institution". SW explained that she is not going to an institution and explained that it was a house with six other people, just like roommates and she could continue to come and go with family within reason. "if I wanted a roommate, I would have stayed to my asshole ". SW and nursing tried to explain to pt that we are not "against her" like she believes and this place would continue to maintain pt medication and other needs just like the staff here does. Furthermore, darleen is trying to get her to understand that living at home alone wasn't going as well as she thinks. Pt got upset and questioned where SW and nursing was getting their information. SW explained that she went into the hospital at [facility] in which is was reported she was agitated, combative with family, not eating, missing medications, and increased confusion. Pt stated "that is not what lead up to me being here. Where did that information come from". LESLIE again explained what brought pt in and she adamantly refuses everything. "I'm in my 70's, I'm allowed to forget things. Don't you forget things". LESLIE stated "we all forget things. The difference is when safety is an issue, then things need to change". Pt one minute stated she never forgot to take her medications, she york her pill bottles every time she takes them, to then saying she separates her medications in a weekly pill box. "It has 7 days and I have them all out". Pt continued to state that her children are worthless, in which SW questioned if she felt that way, why go home with them. "I never said I didn't love them. My kids can be worthless and not have my best interest at heart but I still love them". SW mentioned to pt that Johnathan was starting to have a change of heart realizing that he would not be able to care for pt 27/05 and pt stated he didn't need to care for her. Nursing asked pt what was she going to do when her son left to work, pt stated "I'll go to work with him. I'm a worker and can do things with him". SW noted that pt is in a wheelchair and not mobile to work with pt son who has a cleaning business. "oh yes I can. Don't patronize me". Pt asked to go AMA and SW explained based on her behaviors, which prompted her admission, she was not able to go AMA. "Your son signed you in, so your son has to sign you out". Pt demanded to know which son stating "if they don't get me out of her you can tell them they are to me. Do you know how much stuff they made me put up with over the years. My son was sent away for years and I accepted every collect call from longterm, they piss poor decision and marriages. Johnathan's daughters don't even talk to him. He and his ex- lived with me when I didn't want them to, but I let them anyway and this is how they treat me". Pt continued to discuss how Johnathan is irresponsible which is why she needs to get home because he more than likely hasn't taken care of my dog. "I love my dog more than my kids if that tells you anything". SW questioned that if she didn't trust her son to care for her dog, how can she trust him to care for her when she "discharged to live with him". Pt stated "I don't trust him to care for me. I don't need him because I can go home and live by myself. I make my own lists of what needs to happen so I don't forget". LESLIE questioned if pt did forget, she smiled and "said well sometimes but I write a list so that I don't. I have an appointment coming up but I can't tel you with who, why or where because I don't have my book to tell me". Pt made an off the wall statement about having to go home and get her house and things in order and someone to mow her grass before she is able to go anywhere to live. LESLIE briefly brought up pt dog and questioned "what would happen if you found out if Johnathan didn't care for your dog. "He probably did kill my dog. But I need to go home to find out". Pt reports that while she can't trust Johnathan, Santos has cleaned his act up and he would check on pt. But if he "doesn't sign me out, you let him know he's to me". SW explained that pt already made that statement to Santos yesterday before she hung up the phone and pt stated "tell him again. You got a phone? Call him right now and if he doesn't come get me right now, they both are to me". The conversation was very circular in nature and by the end of the conversation pt still did not concede that she needed to go anywhere but home. As pt wheeled herself out of the group room, she questioned if she was going to get to leave today to check on her dog and was told by LESLIE and nursing that pt would not be leaving today or tomorrow. LESLIE will continue to work with pt family and placement at the [facility] for discharge arrangements next week.
[2021-01-26 15:43] VITALS: BP 126/68
--- NOTE | 2021-01-26 17:45 | NUR ---
Patient in dining sadler at time of assessment. Patient is alert and can answer most orientation questions with some direction. Patient is anxious today and can be irritable at times. Patient is cooperative and takes medications whole with no problems. Met with patient along with Beth to discuss with patient that her sons are legal decision maker for her and that they are planning for her to go to a residential penitentiary. Patient is very upset about this and wants to talk to her sons to telll them she is not going anywhere but home. We discussed why and that there is nothing she can to make us or them change their minds about her care. For safety reasons cecy needs to have someone to take care of her all day and night. She needs to discuss with her sons what they want to do at this time about her care. We have called her son Johnathan 2 times and he has not returned our call. THe other son called yester day but she hung up on him. We will try again tomorrow to see what we can so for her.
--- NOTE | 2021-01-26 17:45 | TX PLAN ---
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 Additional Admission Comments: According to the intake, pt is combative towards family, suspicious, paranoid towards family, unable to care for self at home but insists on going home, increased confusion, poor intake of meals, irritable, argumentative, uncooperative Problems Active Problems: irritable uncooperative with staff Inactive Problems: Medication compliant Pt Strengths/Limitations Ability for [place]: Poor Cognitive Functioning/Ability: Fair Communication Skills/Ability: Fair Financial Resources: Fair Insight/Judgement: Poor Intellectual Ability: Fair Physical Health: Fair Social Skills: Fair Stability in Family: Fair Stability in School/Work: Poor Verbal Skills: Fair Discharge Criteria Discharge Criteria: No need for close observ., Adequate arrangements @DC, Improved behavior, Improved mood/thought Preliminary Discharge Plan Preliminary DC Plan: Current Living Arrange., Home Special Precautions Fall Risk: Moderate Initial D/C Plan Pt to discharge home with private duty and community resources Identified Discharge Needs: Psychiatry Currently Utilized Resources Currently Utilized Resources/P: Primary Care Physician Identified Problems/Hx/Goals Objectives/Short-Term Goals Short Term Goals: Dec. Outbursts, Dec. Symp. Depression, Medication Stabilization, Promote Coping Skill Short Term Goals in Patient's: I need to get home Interventions/Frequency Staff Interventions/Frequency&: Psychiatrist to assess pt at least 3x per week for medication management. Social Work to asses pt at least 2x per week for identification of barriers to care and discharge planning. Nursing to monitor medication effects, behavioral management and completion of 15 minute checks. Encourage participation in group activities (if applicable) or 1:1 engagement based of Activity Dept goals. 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 Son does not wish for pt to start on any psychotropic medications. Treatment Plan Explained Patient/Rebar Bender had this treatment plan explained to him/her as indicated by the signature below and has been given the opportunity to ask questions and make suggestions: Date: Patient/Rebar Bender Signature: Status Update Update Pt is eating roughly 75% of meals and sleeping on average 6 hours per night. Pt appears much better in taking her medications. Pt is more vocal about positive like drawing and her grandchildren. However, pt continues to be upset about not discharging to go home to her dog and wondering why her sons have not picked her up yet. Pt is currently approved for placement at [facility]. SW will work with the family and [facility] of making this transition for pt next week. DEIRDRE VERGARA Jan 26, 2021 17:45
--- NOTE | 2021-01-26 18:13 | NUR ---
Treatment team note: Pt is eating roughly 75% of meals and sleeping on average 6 hours per night. Pt appears much better in taking her medications. Pt is more vocal about positive like drawing and her grandchildren. However, pt continues to be upset about not discharging to go home to her dog and wondering why her sons have not picked her up yet. Pt is currently approved for placement at [facility]. SW will work with the family and [facility] of making this transition for pt next week.
[2021-01-26] MEDS: QUEtiapine 25 MG TABLET. PO SCH (19:45)
[2021-01-26] MEDS: METOPROLOL SUCC 24HR ER 25 MG TAB.ER.24H. PO SCH (19:46)
--- NOTE | 2021-01-26 22:15 | PDOC ---
Exam Note: Jose R Note: This note is a late entry for 01/25/2021 covers elements not covered in my initial note. Subjective: The patient was seen individually in the evening of 01/25/2021 with Geni WALDEN, discussed and reviewed the chart. The patient slept 8 hours previous night. She did well in the morning, later was intermittently agitated because she wants to be discharged. In the evening as I met with her, she was having chocolate ice-cream and seemed to be much calmer. Social service and nursing staff are going to be discussing the patient with her sons tomorrow including discussing discharge plans. Review of Systems: No CV, , pulmonary, eye, ENT system symptoms on review. Ambulation impaired in wheelchair. Mental Status Exam: The patient is oriented herself. Insight and judgement, recent and remote memory, attention and concentration, fund of knowledge is poor consistent with her diagnoses. Laboratory Data: Reviewed. Impression: Major neurocognitive disorder Alzheimer vascular with delusion, depression, behavioral disturbance. Anxiety disorder unspecified. Major dep ressive disorder. Plan: No change from initial note. Assessment: Vital Signs/I&O: Vital Signs Date Time Temp Pulse Resp B/P (MAP) Pulse Ox O2 Delivery O2 Flow Rate FiO2 01/26/21 19:46 84 126/68 01/26/21 15:43 99.1 18 98 01/22/21 06:32 Room Air I & O 01/25/21 01/25/21 01/26/21 15:00 23:00 07:00 Intake Total 560 ml 320 ml Balance 560 ml 320 ml Current Medications: Meds: Current Medications Medications (Trade) Dose Ordered Sig/Lita Route PRN Reason Start Time Stop Time Status Last Admin Dose Admin Amlodipine Besylate (Norvasc) 5 mg DAILY PO 01/13/21 09:00 01/26/21 08:47 Aspirin (Aspirin Enteric Coated) 81 mg DAILY PO 01/13/21 09:00 01/26/21 08:48 Bupropion HCl (Wellbutrin Sr) 100 mg DAILY PO 01/13/21 09:00 01/13/21 12:05 DC 01/13/21 08:13 Donepezil HCl (Aricept) 5 mg DAILY PO 01/13/21 09:00 01/25/21 14:23 DC 01/24/21 10:16 Metoprolol Succinate (Toprol Xl) 12.5 mg HS PO 01/12/21 21:00 01/26/21 19:46 Sertraline HCl (Zoloft) 25 mg DAILY PO 01/13/21 09:00 01/13/21 12:05 DC 01/13/21 08:13 Mirabegron (Myrbetriq) 50 mg DAILY PO 01/13/21 09:00 01/26/21 08:48 Acetaminophen (Tylenol) 650 mg PRN Q6HRS PRN PO MILD PAIN / TEMP > 100.3'F 01/12/21 15:30 01/21/21 22:12 Multi-Ingredient Ointment (Analgesic [place]) 1 mercedez PRN QID PRN TP MUSCLE PAIN 01/12/21 15:30 Al Hydroxide/Mg Hydroxide (Mylanta Plus Xs) 15 ml PRN AFTMEALHC PRN PO DYSPEPSIA 01/12/21 15:30 Magnesium Hydroxide (Milk Of Magnesia) 2,400 mg PRN QHS PRN PO CONSTIPATION 01/12/21 15:30 01/24/21 10:16 Sertraline HCl (Zoloft) 50 mg DAILY PO 01/14/21 09:00 01/13/21 12:10 DC Sertraline HCl (Zoloft) 25 mg DAILY PO 01/14/21 09:00 01/13/21 12:16 DC Bupropion HCl (Wellbutrin Sr) 100 mg DAILY PO 01/14/21 09:00 01/26/21 08:48 Vitamin D (Vitamin D3) 50,000 unit WEEKLY PO 01/13/21 18:45 01/13/21 19:31 DC Vitamin D (Vitamin D3) 50,000 unit WEEKLY PO 01/14/21 09:00 01/21/21 07:57 Olanzapine (ZyPREXA ZYDIS) 2.5 mg PRN Q2HR PRN PO PSYCHOSIS 01/18/21 13:30 01/24/21 10:34 Quetiapine Fumarate (SEROquel) 25 mg QHS PO 01/19/21 21:00 01/22/21 19:37 DC 01/21/21 19:57 Quetiapine Fumarate (SEROquel) 50 mg QHS PO 01/22/21 21:00 01/26/21 19:45 Donepezil HCl (Aricept) 10 mg DAILY PO 01/23/21 09:00 01/26/21 08:47 Trazodone HCl (Desyrel) 50 mg PRN QHS PRN PO INSOMNIA, MAY REPEAT X1 01/22/21 19:45 I have reviewed the current psychotropics carefully including drug interactions. Risk benefit ratio favors no change other than as noted in my dictated progress note. Diagnosis: Problems: (1) Impulse control disorder, unspecified (2) Anxiety disorder, unspecified (3) Dementia, vascular, with depression (4) Dementia, vascular, with delusions (5) Dementia in Alzheimer's disease with depression (6) Dementia in Alzheimer's disease with delusions (7) Dementia of the Alzheimer's type with early onset with behavioral disturbance (8) Major neurocognitive disorder SHIRLEY FRANKLIN MD Jan 26, 2021 22:15
--- NOTE | 2021-01-26 22:15 | PDOC ---
Exam Note: Jose R Note: Please also refer to the separate dictated note~for this date of service dictated separately.~Patient seen individually. Discussed the patient with Nursing staff reviewed the chart.~Reviewed interim history and current functioning. Reviewed vital signs,~Labs/ Radiology~and current medications noted below. Continue current treatment with the changes noted in the dictated addendum note Assessment: Vital Signs/I&O: Vital Signs Date Time Temp Pulse Resp B/P (MAP) Pulse Ox O2 Delivery O2 Flow Rate FiO2 01/26/21 19:46 84 126/68 01/26/21 15:43 99.1 18 98 01/22/21 06:32 Room Air I & O 01/25/21 01/25/21 01/26/21 15:00 23:00 07:00 Intake Total 560 ml 320 ml Balance 560 ml 320 ml Current Medications: Meds: Current Medications Medications (Trade) Dose Ordered Sig/Lita Route PRN Reason Start Time Stop Time Status Last Admin Dose Admin Amlodipine Besylate (Norvasc) 5 mg DAILY PO 01/13/21 09:00 01/26/21 08:47 Aspirin (Aspirin Enteric Coated) 81 mg DAILY PO 01/13/21 09:00 01/26/21 08:48 Bupropion HCl (Wellbutrin Sr) 100 mg DAILY PO 01/13/21 09:00 01/13/21 12:05 DC 01/13/21 08:13 Donepezil HCl (Aricept) 5 mg DAILY PO 01/13/21 09:00 01/25/21 14:23 DC 01/24/21 10:16 Metoprolol Succinate (Toprol Xl) 12.5 mg HS PO 01/12/21 21:00 01/26/21 19:46 Sertraline HCl (Zoloft) 25 mg DAILY PO 01/13/21 09:00 01/13/21 12:05 DC 01/13/21 08:13 Mirabegron (Myrbetriq) 50 mg DAILY PO 01/13/21 09:00 01/26/21 08:48 Acetaminophen (Tylenol) 650 mg PRN Q6HRS PRN PO MILD PAIN / TEMP > 100.3'F 01/12/21 15:30 01/21/21 22:12 Multi-Ingredient Ointment (Analgesic [place]) 1 mercedez PRN QID PRN TP MUSCLE PAIN 01/12/21 15:30 Al Hydroxide/Mg Hydroxide (Mylanta Plus Xs) 15 ml PRN AFTMEALHC PRN PO DYSPEPSIA 01/12/21 15:30 Magnesium Hydroxide (Milk Of Magnesia) 2,400 mg PRN QHS PRN PO CONSTIPATION 01/12/21 15:30 01/24/21 10:16 Sertraline HCl (Zoloft) 50 mg DAILY PO 01/14/21 09:00 01/13/21 12:10 DC Sertraline HCl (Zoloft) 25 mg DAILY PO 01/14/21 09:00 01/13/21 12:16 DC Bupropion HCl (Wellbutrin Sr) 100 mg DAILY PO 01/14/21 09:00 01/26/21 08:48 Vitamin D (Vitamin D3) 50,000 unit WEEKLY PO 01/13/21 18:45 01/13/21 19:31 DC Vitamin D (Vitamin D3) 50,000 unit WEEKLY PO 01/14/21 09:00 01/21/21 07:57 Olanzapine (ZyPREXA ZYDIS) 2.5 mg PRN Q2HR PRN PO PSYCHOSIS 01/18/21 13:30 01/24/21 10:34 Quetiapine Fumarate (SEROquel) 25 mg QHS PO 01/19/21 21:00 01/22/21 19:37 DC 01/21/21 19:57 Quetiapine Fumarate (SEROquel) 50 mg QHS PO 01/22/21 21:00 01/26/21 19:45 Donepezil HCl (Aricept) 10 mg DAILY PO 01/23/21 09:00 01/26/21 08:47 Trazodone HCl (Desyrel) 50 mg PRN QHS PRN PO INSOMNIA, MAY REPEAT X1 01/22/21 19:45 I have reviewed the current psychotropics carefully including drug interactions. Risk benefit ratio favors no change other than as noted in my dictated progress note. Diagnosis: Problems: (1) Impulse control disorder, unspecified (2) Anxiety disorder, unspecified (3) Dementia, vascular, with depression (4) Dementia, vascular, with delusions (5) Dementia in Alzheimer's disease with depression (6) Dementia in Alzheimer's disease with delusions (7) Dementia of the Alzheimer's type with early onset with behavioral disturban ce (8) Major neurocognitive disorder SHIRLEY FRANKLIN MD Jan 26, 2021 22:15
--- NOTE | 2021-01-26 22:54 | NUR ---
Pt sitting up in w/c in the day room when approached. Pt calm, disorganized, and confused. Pt cooperative with assessment and compliant with medications administered whole. No agitation or paranoia noted thus far this shift.
[2021-01-27 06:12] VITALS: BP 114/61
[2021-01-27] MEDS: ASPIRIN ENTERIC COATED 81 MG TABLET.DR. PO SCH (08:15)
[2021-01-27] MEDS: MIRABEGRON 25 MG TAB.ER.24H PO SCH (08:15)
[2021-01-27] MEDS: buPROPion SR 100 MG TABLET.SA. PO SCH (08:15)
[2021-01-27] MEDS: DONEPEZIL HCL 10 MG TABLET PO SCH (08:16)
[2021-01-27] MEDS: amLODIPine BESYLATE 5 MG TABLET PO SCH (08:16)
--- NOTE | 2021-01-27 09:18 | PDOC ---
Exam Note: Jose R Note: This note is a late entry for 01/26/2021 covers elements not covered in my initial note. Subjective: The patient was reviewed in the morning of 01/26/2021 for a treatment team meeting with Elisabeth Gauthier, Beth Bowling and Lola (vp digital marketing social media and crm), Claudine, activity therapy and Geni WALDEN, discussed and reviewed the chart. The patient slept 3 hours previous night. She has attended 2 groups, interacted in [employer] group and the [place] activity. She is less fixated on discharge but obsesses about her dog. Review of Systems: No CV, , pulmonary, eye, ENT system symptoms on review. Ambulation impaired in wheelchair. Mental Status Exam: The patient is oriented herself. Insight and judgement, recent and remote memory, attention and concentration, fund of knowledge is poor consistent with her diagnoses. Laboratory Data: Reviewed. Impression: Major neurocognitive disorder Alzheimer vascular with delusion, depression, behavioral disturbance. Anxiety disorder unspecified. Major depressive disorder. Plan: No change from initial note. Assessment: Vital Signs/I&O: Vital Signs Date Time Temp Pulse Resp B/P (MAP) Pulse Ox O2 Delivery O2 Flow Rate FiO2 01/27/21 08:16 74 114/61 01/27/21 06:12 99.3 16 96 Room Air I & O 01/26/21 01/26/21 01/27/21 15:00 23:00 07:00 Intake Total 720 ml 480 ml Balance 720 ml 480 ml Current Medications: Meds: Current Medications Medications (Trade) Dose Ordered Sig/Lita Route PRN Reason Start Time Stop Time Status Last Admin Dose Admin Amlodipine Besylate (Norvasc) 5 mg DAILY PO 01/13/21 09:00 01/27/21 08:16 Aspirin (Aspirin Enteric Coated) 81 mg DAILY PO 01/13/21 09:00 01/27/21 08:15 Bupropion HCl (Wellbutrin Sr) 100 mg DAILY PO 01/13/21 09:00 01/13/21 12:05 DC 01/13/21 08:13 Donepezil HCl (Aricept) 5 mg DAILY PO 01/13/21 09:00 01/25/21 14:23 DC 01/24/21 10:16 Metoprolol Succinate (Toprol Xl) 12.5 mg HS PO 01/12/21 21:00 01/26/21 19:46 Sertraline HCl (Zoloft) 25 mg DAILY PO 01/13/21 09:00 01/13/21 12:05 DC 01/13/21 08:13 Mirabegron (Myrbetriq) 50 mg DAILY PO 01/13/21 09:00 01/27/21 08:15 Acetaminophen (Tylenol) 650 mg PRN Q6HRS PRN PO MILD PAIN / TEMP > 100.3'F 01/12/21 15:30 01/21/21 22:12 Multi-Ingredient Ointment (Analgesic [place]) 1 mercedez PRN QID PRN TP MUSCLE PAIN 01/12/21 15:30 Al Hydroxide/Mg Hydroxide (Mylanta Plus Xs) 15 ml PRN AFTMEALHC PRN PO DYSPEPSIA 01/12/21 15:30 Magnesium Hydroxide (Milk Of Magnesia) 2,400 mg PRN QHS PRN PO CONSTIPATION 01/12/21 15:30 01/24/21 10:16 Sertraline HCl (Zoloft) 50 mg DAILY PO 01/14/21 09:00 01/13/21 12:10 DC Sertraline HCl (Zoloft) 25 mg DAILY PO 01/14/21 09:00 01/13/21 12:16 DC Bupropion HCl (Wellbutrin Sr) 100 mg DAILY PO 01/14/21 09:00 01/27/21 08:15 Vitamin D (Vitamin D3) 50,000 unit WEEKLY PO 01/13/21 18:45 01/13/21 19:31 DC Vitamin D (Vitamin D3) 50,000 unit WEEKLY PO 01/14/21 09:00 01/21/21 07:57 Olanzapine (ZyPREXA ZYDIS) 2.5 mg PRN Q2HR PRN PO PSYCHOSIS 01/18/21 13:30 01/24/21 10:34 Quetiapine Fumarate (SEROquel) 25 mg QHS PO 01/19/21 21:00 01/22/21 19:37 DC 01/21/21 19:57 Quetiapine Fumarate (SEROquel) 50 mg QHS PO 01/22/21 21:00 01/26/21 19:45 Donepezil HCl (Aricept) 10 mg DAILY PO 01/23/21 09:00 01/27/21 08:16 Trazodone HCl (Desyrel) 50 mg PRN QHS PRN PO INSOMNIA, MAY REPEAT X1 01/22/21 19:45 I have reviewed the current psychotropics carefully including drug interactions. Risk benefit ratio favors no change other than as noted in my dictated progress note. Diagnosis: Problems: (1) Impulse control disorder, unspecified (2) Anxiety disorder, unspecified (3) Dementia, vascular, with depression (4) Dementia, vascular, with delusions (5) Dementia in Alzheimer's disease with depression (6) Dementia in Alzheimer's disease with delusions (7) Dementia of the Alzheimer's type with early onset with behavioral disturbance (8) Major neurocognitive disorder SHIRLEY FRANKLIN MD Jan 27, 2021 09:18
--- NOTE | 2021-01-27 15:00 | NUR ---
ELSLIE received an email from Tati with the [facility] with an approval to be able to accept pt on . She will need to have the son come sign paperwork and make sure they can move things into her room prior to. Tati and LESLIE will touch base next week to ensure everything needed for discharge/admission is completed.
--- NOTE | 2021-01-27 15:16 | NUR ---
LESLIE contacted Santos, pt son, to discuss the conversation SW and nursing had with pt yesterday morning. Santos had a few conversations himself with pt in which she told him multiple times "you're to me". Santos understands that a lot of it is her emotions and poor processing on why she is not able to discharge home alone or to live with her sons. Santos reports that Johnathan sent him a text telling him to never talk to him again and having to deal with the fact that Johnathan is having to deal with his emotions surrounding this and potentially some guilt on making promises that he cannot follow through with. LESLIE informed Santos that SW sent updates to [facility] and was just waiting for an update on when they would be able to admit pt. Santos and LESLIE went over what the [facility] looked like and Santos was happy that it was an actual house. He compared it to a residential home for MRDD residents he helped his friend rebuild and LESLIE explained that the concept was the same, just for those who have Dementia. Making that realization, Santos was happy because he knows what those look like, the staffing that it takes and felt it was the better situation for pt than an actual intermediate. Snatos reports his attempt to explain this to pt, as it was her call to put her parents in a intermediate. He was hopeful to get her to understand that he had to make a decision for her care; but quickly realized she wasn't trying to hear him out and let it go. LESLIE asked that Santos please bring up letting pt know that her dog has . Santos and LESLIE discussed ways to tell pt (what to leave out and using the comfort of the dog's ashes waiting for her). LESLIE was able to make the connection that without her dog being at home, it may make the idea of going to [facility] more appeasing. Santos will call pt within the hour and call SW to let her know how it went.
[2021-01-27 16:03] VITALS: BP 148/80
--- NOTE | 2021-01-27 17:15 | NUR ---
LESLIE received a call from Santos, pt son, who reports that he spoke with pt to inform her that her dog has . He told her that the dog continued to get sick and based off the vet evaluation, her kidneys were worsening and putting her down was the best option. Santos reports that she understood but was upset with Johnathan stating "he is to me". Santos explained to pt that it wasn't Johnathan's fault, he couldn't prevent further kidney failure. Pt requested that they cremate her dog, in which Santos informed her that they did and Santos has its ashes at his house in an urn. Santos further stated to pt that when she gets to her new house, they will bring the urn to her and pt stated, I'm not going to a new house. I'm going to live with Johnathan. Santos said he tried to use her words against her "you said Johnathan was to you. Why do you want to go live there"? And pt hung up on him. Santos is thankful for the conversations staff has had with pt and really felt like she took the news better than they anticipated. LESLIE will follow-up with Santos in the beginning of the week and look at a potential discharge date for to [facility].
[2021-01-27] MEDS: QUEtiapine 25 MG TABLET. PO SCH (19:58)
[2021-01-27] MEDS: METOPROLOL SUCC 24HR ER 25 MG TAB.ER.24H. PO SCH (19:59)
[2021-01-27] MEDS: traZODone 50 MG TABLET. PO PRN (21:27)
--- NOTE | 2021-01-27 21:45 | PDOC ---
Exam Note: Jose R Note: Please also refer to the separate dictated note~for this date of service dictated separately.~Patient seen individually. Discussed the patient with Nursing staff reviewed the chart.~Reviewed interim history and current functioning. Reviewed vital signs,~Labs/ Radiology~and current medications noted below. Continue current treatment with the changes noted in the dictated addendum note Assessment: Vital Signs/I&O: Vital Signs Date Time Temp Pulse Resp B/P (MAP) Pulse Ox O2 Delivery O2 Flow Rate FiO2 01/27/21 19:59 78 148/80 01/27/21 16:03 98.7 20 98 Room Air I & O 01/26/21 01/26/21 01/27/21 15:00 23:00 07:00 Intake Total 720 ml 480 ml Balance 720 ml 480 ml Current Medications: Meds: Current Medications Medications (Trade) Dose Ordered Sig/Lita Route PRN Reason Start Time Stop Time Status Last Admin Dose Admin Amlodipine Besylate (Norvasc) 5 mg DAILY PO 01/13/21 09:00 01/27/21 08:16 Aspirin (Aspirin Enteric Coated) 81 mg DAILY PO 01/13/21 09:00 01/27/21 08:15 Bupropion HCl (Wellbutrin Sr) 100 mg DAILY PO 01/13/21 09:00 01/13/21 12:05 DC 01/13/21 08:13 Donepezil HCl (Aricept) 5 mg DAILY PO 01/13/21 09:00 01/25/21 14:23 DC 01/24/21 10:16 Metoprolol Succinate (Toprol Xl) 12.5 mg HS PO 01/12/21 21:00 01/27/21 19:59 Sertraline HCl (Zoloft) 25 mg DAILY PO 01/13/21 09:00 01/13/21 12:05 DC 01/13/21 08:13 Mirabegron (Myrbetriq) 50 mg DAILY PO 01/13/21 09:00 01/27/21 08:15 Acetaminophen (Tylenol) 650 mg PRN Q6HRS PRN PO MILD PAIN / TEMP > 100.3'F 01/12/21 15:30 01/21/21 22:12 Multi-Ingredient Ointment (Analgesic [place]) 1 mercedez PRN QID PRN TP MUSCLE PAIN 01/12/21 15:30 Al Hydroxide/Mg Hydroxide (Mylanta Plus Xs) 15 ml PRN AFTMEALHC PRN PO DYSPEPSIA 01/12/21 15:30 Magnesium Hydroxide (Milk Of Magnesia) 2,400 mg PRN QHS PRN PO CONSTIPATION 01/12/21 15:30 01/24/21 10:16 Sertraline HCl (Zoloft) 50 mg DAILY PO 01/14/21 09:00 01/13/21 12:10 DC Sertraline HCl (Zoloft) 25 mg DAILY PO 01/14/21 09:00 01/13/21 12:16 DC Bupropion HCl (Wellbutrin Sr) 100 mg DAILY PO 01/14/21 09:00 01/27/21 08:15 Vitamin D (Vitamin D3) 50,000 unit WEEKLY PO 01/13/21 18:45 01/13/21 19:31 DC Vitamin D (Vitamin D3) 50,000 unit WEEKLY PO 01/14/21 09:00 01/21/21 07:57 Olanzapine (ZyPREXA ZYDIS) 2.5 mg PRN Q2HR PRN PO PSYCHOSIS 01/18/21 13:30 01/27/21 21:28 Quetiapine Fumarate (SEROquel) 25 mg QHS PO 01/19/21 21:00 01/22/21 19:37 DC 01/21/21 19:57 Quetiapine Fumarate (SEROquel) 50 mg QHS PO 01/22/21 21:00 01/27/21 19:58 Donepezil HCl (Aricept) 10 mg DAILY PO 01/23/21 09:00 01/27/21 08:16 Trazodone HCl (Desyrel) 50 mg PRN QHS PRN PO INSOMNIA, MAY REPEAT X1 01/22/21 19:45 01/27/21 21:27 I have reviewed the current psychotropics carefully including drug interactions. Risk benefit ratio favors no change other than as noted in my dictated progress note. Diagnosis: Problems: (1) Impulse control disorder, unspecified (2) Anxiety disorder, unspecified (3) Dementia, vascular, with depression (4) Dementia, vascular, with delusions (5) Dementia in Alzheimer's disease with depression (6) Dementia in Alzheimer's disease with delusions (7) Dementia of the Alzheimer's type with early onset with behavioral disturbance (8) Major neurocognitive disorder SHIRLEY FRANKLIN MD Jan 27, 2021 21:45
--- NOTE | 2021-01-28 01:37 | NUR ---
Pt sitting up in w/c in the day room when approached. Pt initially calm and pleasant during interaction, she was cooperative with assessment and compliant with her medications administered whole. Pt became resistive, argumentative, and delusional when staff attempted to escort her to her room for HS cares. Pt reported that she was waiting for her ride and that she would not be staying here tonight. When staff attempted to re-direct, she became increasingly more agitated. PRN Trazodone and PRN Zydis administered @2126. Pt currently resting comfortably in bed.
[2021-01-28 07:07] VITALS: BP 118/73
[2021-01-28] MEDS: buPROPion SR 100 MG TABLET.SA. PO SCH (08:46)
[2021-01-28] MEDS: DONEPEZIL HCL 10 MG TABLET PO SCH (08:47)
[2021-01-28] MEDS: ASPIRIN ENTERIC COATED 81 MG TABLET.DR. PO SCH (08:47)
[2021-01-28] MEDS: amLODIPine BESYLATE 5 MG TABLET PO SCH (08:47)
[2021-01-28] MEDS: MIRABEGRON 25 MG TAB.ER.24H PO SCH (08:48)
[2021-01-28] MEDS: CHOLECALCIFEROL (VITAMIN D3) 50,000 UNIT CAPSULE PO SCH (08:49)
--- NOTE | 2021-01-28 08:49 | PDOC ---
Exam Note: Jose R Note: This note is a late entry for 01/27/2021 covers elements not covered in my initial note. Subjective: The patient was seen individually in the evening of 01/27/2021 with Valerie WALDEN, discussed and reviewed the chart. The patient slept 5-1/4 hours previous night. Overall she remains confused. She has been informed that her dog has and she will be going to her facility rather than home. She was quite upset about this but better by the time I met with her in the evening. Review of Systems: No CV, , pulmonary, eye, ENT system symptoms on review. Ambulation impaired in wheelchair. Mental Status Exam: The patient is oriented herself. She was less paranoid, smiling at times as I met with her. No suicidal or homicidal ideation. Attention span is short. Language function intact. Laboratory Data: Reviewed. Impression: Major neurocognitive disorder Alzheimer vascular with delusion, depression, behavioral disturbance. Anxiety disorder unspecified. Major depressive disorder. Plan: No change from initial note. Dr. Byers will be covering for me from [facility] 28 January through February 11, 2021. Assessment: Vital Signs/I&O: Vital Signs Date Time Temp Pulse Resp B/P (MAP) Pulse Ox O2 Delivery O2 Flow Rate FiO2 01/28/21 07:07 97.5 69 18 118/73 (88) 98 Room Air I & O 01/27/21 01/27/21 01/28/21 15:00 23:00 07:00 Intake Total 600 ml 480 ml Balance 600 ml 480 ml Current Medications: Meds: Current Medications Medications (Trade) Dose Ordered Sig/Lita Route PRN Reason Start Time Stop Time Status Last Admin Dose Admin Amlodipine Besylate (Norvasc) 5 mg DAILY PO 01/13/21 09:00 01/27/21 08:16 Aspirin (Aspirin Enteric Coated) 81 mg DAILY PO 01/13/21 09:00 01/27/21 08:15 Bupropion HCl (Wellbutrin Sr) 100 mg DAILY PO 01/13/21 09:00 01/13/21 12:05 DC 01/13/21 08:13 Donepezil HCl (Aricept) 5 mg DAILY PO 01/13/21 09:00 01/25/21 14:23 DC 01/24/21 10:16 Metoprolol Succinate (Toprol Xl) 12.5 mg HS PO 01/12/21 21:00 01/27/21 19:59 Sertraline HCl (Zoloft) 25 mg DAILY PO 01/13/21 09:00 01/13/21 12:05 DC 01/13/21 08:13 Mirabegron (Myrbetriq) 50 mg DAILY PO 01/13/21 09:00 01/27/21 08:15 Acetaminophen (Tylenol) 650 mg PRN Q6HRS PRN PO MILD PAIN / TEMP > 100.3'F 01/12/21 15:30 01/21/21 22:12 Multi-Ingredient Ointment (Analgesic [place]) 1 mercedez PRN QID PRN TP MUSCLE PAIN 01/12/21 15:30 Al Hydroxide/Mg Hydroxide (Mylanta Plus Xs) 15 ml PRN AFTMEALHC PRN PO DYSPEPSIA 01/12/21 15:30 Magnesium Hydroxide (Milk Of Magnesia) 2,400 mg PRN QHS PRN PO CONSTIPATION 01/12/21 15:30 01/24/21 10:16 Sertraline HCl (Zoloft) 50 mg DAILY PO 01/14/21 09:00 01/13/21 12:10 DC Sertraline HCl (Zoloft) 25 mg DAILY PO 01/14/21 09:00 01/13/21 12:16 DC Bupropion HCl (Wellbutrin Sr) 100 mg DAILY PO 01/14/21 09:00 01/27/21 08:15 Vitamin D (Vitamin D3) 50,000 unit WEEKLY PO 01/13/21 18:45 01/13/21 19:31 DC Vitamin D (Vitamin D3) 50,000 unit WEEKLY PO 01/14/21 09:00 01/21/21 07:57 Olanzapine (ZyPREXA ZYDIS) 2.5 mg PRN Q2HR PRN PO PSYCHOSIS 01/18/21 13:30 01/27/21 21:28 Quetiapine Fumarate (SEROquel) 25 mg QHS PO 01/19/21 21:00 01/22/21 19:37 DC 01/21/21 19:57 Quetiapine Fumarate (SEROquel) 50 mg QHS PO 01/22/21 21:00 01/27/21 19:58 Donepezil HCl (Aricept) 10 mg DAILY PO 01/23/21 09:00 01/27/21 08:16 Trazodone HCl (Desyrel) 50 mg PRN QHS PRN PO INSOMNIA, MAY REPEAT X1 01/22/21 19:45 01/27/21 21:27 I have reviewed the current psychotropics carefully including drug interactions. Risk benefit ratio favors no change other than as noted in my dictated progress note. Diagnosis: Problems: (1) Impulse control disorder, unspecified (2) Anxiety disorder, unspecified (3) Dementia, vascular, with depression (4) Dementia, vascular, with delusions (5) Dementia in Alzheimer's disease with depression (6) Dementia in Alzheimer's disease with delusions (7) Dementia of the Alzheimer's type with early onset with behavioral disturbance (8) Major neurocognitive disorder SHIRLEY FRANKLIN MD Jan 28, 2021 08:49
--- NOTE | 2021-01-28 14:37 | NUR ---
Pt up in wc for meals. Has been pleasantly confused. Compliant with meds and cares.
[2021-01-28 16:58] VITALS: BP 136/75
[2021-01-28] MEDS: QUEtiapine 25 MG TABLET. PO SCH (19:36)
[2021-01-28] MEDS: METOPROLOL SUCC 24HR ER 25 MG TAB.ER.24H. PO SCH (19:36)
[2021-01-28] MEDS: traZODone 50 MG TABLET. PO PRN (19:37)
--- NOTE | 2021-01-28 21:37 | PN ---
DATE: 01/28/2021 SUBJECTIVE: The patient was seen today, met with the staff, chart reviewed and also covering for Dr. Villafuerte. The patient's behavior remains the same. The patient has problems with her communication. The patient has a history of dementia, also behavior problems including being combative, feeling paranoid, aggressive behaviors in the past. OBSERVATION: VITAL SIGNS: Temperature 97.5, blood pressure 118/73, pulse 69, respirations 18, O2 sat 98%. GENERAL: Slept about 7 hours last night. Her appetite is fair. MEDICATIONS: The patient's current medications include Aricept 10 mg daily, Seroquel 50 mg at night, Wellbutrin 100 mg daily. The patient is also on olanzapine 2.5 mg q.2 hours p.r.n. for agitation. LABORATORY DATA: The patient's lab reviewed. ASSESSMENT: Neurocognitive disorder, most likely Alzheimer's versus vascular with delusions and behavior problems. PLAN: Continue with the current treatment plan. LENGTH OF STAY: 7 days. JULIA COBOS MD DR: LUCHO/robin JOB#: [id number] / [id number] KERRI
--- NOTE | 2021-01-28 22:36 | NUR ---
Pt wandering in her w/c when approached. Pt calm and pleasant during interaction but quickly shifts the conversation to her dog that recently passed, becoming anxious. PRN Zydis administered with HS medications.
[2021-01-29 06:09] VITALS: BP 101/64
[2021-01-29] MEDS: ASPIRIN ENTERIC COATED 81 MG TABLET.DR. PO SCH (08:20)
[2021-01-29] MEDS: DONEPEZIL HCL 10 MG TABLET PO SCH (08:20)
[2021-01-29] MEDS: amLODIPine BESYLATE 5 MG TABLET PO SCH (08:21)
[2021-01-29] MEDS: MIRABEGRON 25 MG TAB.ER.24H PO SCH (08:21)
[2021-01-29] MEDS: buPROPion SR 100 MG TABLET.SA. PO SCH (08:21)
[2021-01-29 09:49] LABS: BASO % 1 % (0-3); EOS # 0.1 x10^3/uL (0.0-0.7); EOS % 2 % (0-3); HEMATOCRIT 36.6 % (36.0-47.0); HEMOGLOBIN 11.7 g/dL (12.0-15.5); LYMPH # 1.3 x10^3/uL (1.0-4.8); LYMPH % 22 % (24-48); MEAN CORPUSCULAR HEMOGLOBIN 28 pg (25-35); MEAN CORPUSCULAR HGB CONC 32 g/dL (31-37); MEAN CORPUSCULAR VOLUME 87 fL (79-100); MONO # 0.3 x10^3/uL (0.0-1.1); MONO % 5 % (0-9); NEUT # 4.2 x10^3uL (1.8-7.7); NEUT % 71 % (31-73); PLATELET COUNT 262 x10^3/uL (140-400); RED BLOOD COUNT 4.18 x10^6/uL (3.50-5.40); RED CELL DISTRIBUTION WIDTH 14.9 % (11.5-14.5); WHITE BLOOD COUNT 5.9 x10^3/uL (4.0-11.0)
[2021-01-29 10:04] LABS: ALBUMIN/GLOBULIN RATIO 0.8 (1.0-1.7); CALCIUM 9.2 mg/dL (8.5-10.1); CREATININE 1.2 mg/dL (0.6-1.0); GFR 43.9; POTASSIUM 3.9 mmol/L (3.5-5.1); TOTAL BILIRUBIN 0.2 mg/dL (0.2-1.0); TOTAL PROTEIN 6.6 g/dL (6.4-8.2)
[2021-01-29 16:31] VITALS: BP 120/71
--- NOTE | 2021-01-29 17:07 | NUR ---
Pt has been plesant and compliant. Pt got bored sitting at lunch table and built a an airplane out of Styrofoam lunch container. Pt spoke with Ted Woo on phone. Visit went well.
[2021-01-29] MEDS: METOPROLOL SUCC 24HR ER 25 MG TAB.ER.24H. PO SCH (20:25)
[2021-01-29] MEDS: traZODone 50 MG TABLET. PO PRN (20:25)
[2021-01-29] MEDS: QUEtiapine 25 MG TABLET. PO SCH (20:26)
--- NOTE | 2021-01-29 20:41 | PN ---
DATE: 01/29/2021 SUBJECTIVE: The patient was seen today, met with the staff, chart reviewed and also covering for Dr. Villafuerte. Staff reports no psychotic behaviors. No falls. The patient is wanting to go home constantly. The patient also upset that her 16-year-old dog recently and she is blaming her son. OBJECTIVE: VITAL SIGNS: Temperature 97.6, blood pressure 101/64, pulse 88, respirations 16, O2 sat 97%. GENERAL: Slept about 5 hours last night. The patient's appetite is fair. MEDICATIONS: The patient's current medications include Aricept 10 mg daily, Seroquel 50 mg at night, trazodone 50 mg at night p.r.n. The patient is also on Wellbutrin SR 100 mg daily. She is also on olanzapine 2.5 mg q. 2 hours p.r.n. for psychosis. LABORATORY DATA: The patient's lab reviewed. ASSESSMENT: Neurocognitive disorder, most likely Alzheimer's versus vascular with delusions and behavior problems. PLAN: Continue with the current treatment. LENGTH OF STAY: 7 days. JULIA COBOS MD DR: LUCHO/robin JOB#: [id number] / [id number] KERRI
--- NOTE | 2021-01-30 03:03 | NUR ---
Nursing Note The patient was compliant with cares and medication pass this shift. The patient was irritable when approached for her medications. The patient did eventually take her medication whole. The patient is currently sleeping in her room.
[2021-01-30 06:47] VITALS: BP 113/64
[2021-01-30] MEDS: amLODIPine BESYLATE 5 MG TABLET PO SCH (09:11)
[2021-01-30] MEDS: buPROPion SR 100 MG TABLET.SA. PO SCH (09:11)
[2021-01-30] MEDS: ASPIRIN ENTERIC COATED 81 MG TABLET.DR. PO SCH (09:11)
[2021-01-30] MEDS: DONEPEZIL HCL 10 MG TABLET PO SCH (09:11)
[2021-01-30] MEDS: MIRABEGRON 25 MG TAB.ER.24H PO SCH (09:12)
[2021-01-30 15:14] VITALS: BP 124/69
--- NOTE | 2021-01-30 16:37 | NUR ---
Nursing Note Pt wanders the unit in her wheel chair states she wants out of here. She states that her dogs bones and ashes are with her son that he is passive aggressive and wants it all her way. Irritated that she is still a patient here.
[2021-01-30] MEDS: QUEtiapine 25 MG TABLET. PO SCH (19:37)
[2021-01-30] MEDS: METOPROLOL SUCC 24HR ER 25 MG TAB.ER.24H. PO SCH (19:38)
--- NOTE | 2021-01-31 00:19 | PN ---
DATE: 01/30/2021 SUBJECTIVE: The patient was seen today, met with the staff, chart reviewed, also covering for Dr. Villafuerte. Also discussed in the treatment review conference today. The patient is medication compliant, not presented with any major behavior problems. She is able to ambulate fairly well. OBJECTIVE: VITAL SIGNS: Temperature is 98.1, blood pressure 113/64, pulse 74, respirations 20, O2 sat 98%. GENERAL: Slept about 7 hours last night. The patient's appetite is fair. The patient is not having any major side effects from the medications. CURRENT MEDICATIONS: The patient's current medications include Aricept 10 mg daily, Seroquel 50 mg at night, trazodone 50 mg at night p.r.n. for sleep. The patient is also on Wellbutrin SR 100 mg daily. LABORATORY DATA: Reviewed. ASSESSMENT: 1. Major neurocognitive disorder, most likely Alzheimer's versus vascular with delusions and behavioral disturbances. PLAN: To continue with the treatment. LENGTH OF STAY: 7 days. JULIA COBOS MD DR: LUCHO/robin JOB#: [id number] / [id number]
--- NOTE | 2021-01-31 04:14 | NUR ---
Nursing Note The patient was irritable but compliant this shift. The patient was agitated during he phone call with her son(DIONISIO). The patient took her medication whole. The patient was alert to name only during her assessment. The patient is currently sleeping in her room.
[2021-01-31 06:04] VITALS: BP 131/81
[2021-01-31] MEDS: buPROPion SR 100 MG TABLET.SA. PO SCH (08:07)
[2021-01-31] MEDS: ASPIRIN ENTERIC COATED 81 MG TABLET.DR. PO SCH (08:07)
[2021-01-31] MEDS: DONEPEZIL HCL 10 MG TABLET PO SCH (08:07)
[2021-01-31] MEDS: MIRABEGRON 25 MG TAB.ER.24H PO SCH (08:07)
[2021-01-31] MEDS: amLODIPine BESYLATE 5 MG TABLET PO SCH (08:07)
--- NOTE | 2021-01-31 10:44 | NUR ---
LESLIE returned call to Tati, ED at [facility], to discuss pt discharge for . The hospital does not have transport; so pt son will either have to pick pt up or LESLIE can set up transport and the family pay for it. Tati is to contact Santos and request he take off on . LESLIE also has it listed to contact Santos so LESLIE can also talk to him about this as well. LESLIE will make sure to have the medication list faxed over to [facility] first thing in the morning so they can get pt medications filled and avoid missed doses.
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
[2021-01-31 16:16] VITALS: BP 110/67
[2021-01-31] MEDS: QUEtiapine 25 MG TABLET. PO SCH (19:47)
[2021-01-31] MEDS: traZODone 50 MG TABLET. PO PRN (19:48)
[2021-01-31] MEDS: METOPROLOL SUCC 24HR ER 25 MG TAB.ER.24H. PO SCH (19:48)
--- NOTE | 2021-01-31 23:12 | PN ---
DATE: 01/31/2021 SUBJECTIVE: The patient was seen today, met with the staff, chart reviewed and also covering for Dr. Villafuerte. The patient is medication compliant, has not presented with any major behavior problems and she is able to ambulate fairly well and no falls. OBJECTIVE: VITAL SIGNS: Temperature 98.2, blood pressure 131/81, pulse 69, respirations 20, O2 sat 96%. GENERAL: Slept about 7 hours last night. The patient's appetite normal. CURRENT MEDICATIONS: Include Aricept 10 mg daily, Seroquel 50 mg at night, trazodone 50 mg at night p.r.n. for sleep. She is also on Wellbutrin SR 100 mg daily. LABORATORY DATA: Reviewed. ASSESSMENT: Major neurocognitive disorder, most likely Alzheimer's versus vascular with delusions and behavioral disturbances. PLAN: To continue with the treatment. LENGTH OF STAY: 7 days. JULIA COBOS MD DR: LUCHO/robin JOB#: [id number] / [id number]
--- NOTE | 2021-01-31 23:28 | NUR ---
Pt lying in bed awake when approached. Pt anxious and tearful at times this evening when talking about her dog and wanting to apologize to her son and wanting to tell him that she loves him. Pt calmed after we talked 1:1. Pt cooperative with assessment and compliant with medications administered whole.
[2021-02-01 06:10] VITALS: BP 108/65
[2021-02-01] MEDS: MIRABEGRON 25 MG TAB.ER.24H PO SCH (08:34)
[2021-02-01] MEDS: buPROPion SR 100 MG TABLET.SA. PO SCH (08:34)
[2021-02-01] MEDS: DONEPEZIL HCL 10 MG TABLET PO SCH (08:35)
[2021-02-01] MEDS: ASPIRIN ENTERIC COATED 81 MG TABLET.DR. PO SCH (08:35)
[2021-02-01] MEDS: amLODIPine BESYLATE 5 MG TABLET PO SCH (08:35)
--- NOTE | 2021-02-01 09:29 | NUR ---
LESLIE contacted Santos to discuss discharge planning and wanted to clarify options for case picker. Santos will plan to pick pt up between 1030 and 1100 but will plan to call when he leaves [place], [place]. Santos discussed having a great conversation with pt. At one point and time pt attempted to manipulate Santos by making passive SI statements in which Santos told pt "you try that then you for sure will going into a facility and they may put you in a padded room to keep you safe". Pt was able to tell pt "you know I would never do that". Santos knew what pt was saying and just wanted to make sure pt knew that he made a good decision for her and understands that she can't see that right now, but eventually,she will. Santos was very thankful of LESLIE and the team for being able to put up with the initial shenanigans of the family and thankful to SW for pushing him to play his role as DPOA. "I cared a lot about what my family thought and at the end of the day, you helped me realize that it was best interest for Mom and no one else". LESLIE encouraged Santos to let SW know if he needs anything else prior to discharge tomorrow.
--- NOTE | 2021-02-01 10:39 | NUR ---
[facility] Social Work Discharge Planning Form Patient Name SALLY AGRAWAL Admit Date: 12 January 2021 DISCHARGE PLAN Discharge Destination: Pt to discharge to [facility] Care Assessment: NA Level II Assessment: NA Transportation: Pt francisco javier Graham to pick pt up between 1030 and 1100 Special Instructions/Notes: Please fax all discharge orders, discharge medications and discharge summary to the fax number listed below. DISCHARGE TO FACILITY Facility: [facility] Address: [address] [place] [address] Contact Name: Tati Alves, Client Reporting Associate: Contact Name: Codi Orozco, Skip Locator: PCP: Chelita Castle APRN
[2021-02-01 15:30] VITALS: BP 124/71
--- NOTE | 2021-02-01 17:52 | NUR ---
Patient has been calm, compliant, and forgetful this shift. She has been preoccupied with getting a hold of her dog's remains which her son had cremated stating that she cannot trust her sons to take care of. She asked to talk to her son about 30 minutes after getting off the phone with him this morning, stating she never talked to him. Will continue to monitor and report to oncoming shift.
[2021-02-01] MEDS: METOPROLOL SUCC 24HR ER 25 MG TAB.ER.24H. PO SCH (19:34)
[2021-02-01] MEDS: QUEtiapine 25 MG TABLET. PO SCH (19:34)
[2021-02-01] MEDS ORDERED: OLAN5TAB7 PO (23:01)
[2021-02-01] MEDS ORDERED: QUET50TA5 PO (23:01)
[2021-02-01] MEDS ORDERED: DONE10TA7 PO (23:01)
[2021-02-01] MEDS ORDERED: TRAZ-120 PO (23:02)
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
--- NOTE | 2021-02-02 04:06 | DS ---
DATE OF DISCHARGE: 02/01/2021 FINAL DIAGNOSES: AXIS I: 1. Major neurocognitive disorder, Alzheimer's, vascular with delusion, depression and behavioral disturbances. 2. Anxiety disorder, unspecified. 3. Impulse control disorder, unspecified. AXIS II: None. AXIS III: Hypertension, hyperlipidemia, gastroesophageal reflux disease, chronic kidney disease stage 3 and kyphosis. REASON FOR ADMISSION: This 75-year-old female was admitted from [facility] where she presented from home and having behavior problems including being combative towards the family, suspicious, paranoid and also exhibiting increased confusion, not eating, not sleeping well, also irritable, argumentative. The patient also saw a psychiatrist at [facility] prior to coming here. Apparently, family was unable to manage her. HISTORY OF PRESENT ILLNESS: The patient has a history of dementia, Alzheimer's and vascular type. She has been residing at home with her family and her behavior has gotten worse lately including being paranoid, increased agitation, aggressive towards them, disruptive, unmanageable and she is not sleeping well. Appetite decreased. The patient did not have any active suicidal or homicidal ideation. HOSPITAL COURSE: The patient had a physical exam, routine lab work including CBC, chem profile, urinalysis, which was all within normal range except for the BUN was elevated to 47, creatinine 1.2, glucose was slightly elevated to 104. The patient was involved in the program including individual and group activities. The patient was also seen by the theater set production designer. The patient was treated with Aricept 10 mg daily, Seroquel 50 mg at night, Wellbutrin-SR 100 mg daily, trazodone 50 mg at night p.r.n. and also olanzapine 2.5 mg q. 2 hours p.r.n. The patient also continued on home medications for medical problems including amlodipine, metoprolol. The patient's behavior improved. The patient is less paranoid and suspicious. She is much calmer. The patient's sleep and appetite have improved. She did not have any side effects to the medications. AFTERCARE PLAN: The patient will be returning to [facility] and continue on the medication listed above. The patient at the time of discharge was not having any suicidal or homicidal thoughts. JULIA COBOS MD DR: LUCHO/robin JOB#: [id number] / [id number]
[2021-02-02 06:23] VITALS: BP 126/69
[2021-02-02] MEDS: MIRABEGRON 25 MG TAB.ER.24H PO SCH (08:48)
[2021-02-02] MEDS: ASPIRIN ENTERIC COATED 81 MG TABLET.DR. PO SCH (08:48)
[2021-02-02] MEDS: DONEPEZIL HCL 10 MG TABLET PO SCH (08:48)
[2021-02-02 08:49] VITALS: BP 126/69
[2021-02-02] MEDS: buPROPion SR 100 MG TABLET.SA. PO SCH (08:49)
[2021-02-02] MEDS: amLODIPine BESYLATE 5 MG TABLET PO SCH (08:49)
--- NOTE | 2021-02-02 10:01 | NUR ---
Pt begins the day inquiring about her pending d/c and what kind of facility she will be d/c to. When informed that she will be going to a SNF she became argumentative that she has been able and capable of living independently and should not have to go to a SNF. She then became skeptical concerning medications, requesting that every individual pill be identified to her. She remains confused and forgetful, lacking insight to her current hospitalization and behaviors. She is A&O to self only, absent of SI/HI behaviors or associated verbal/physical aggressions. Plan of care continues, preparing for d/c.
--- NOTE | 2021-02-02 12:00 | NUR ---
Pt increasing in anxiety r/t pending d/c. PRN Zyprexa 2.5 mg PO administered for anxiety
--- NOTE | 2021-02-02 12:35 | NUR ---
LESLIE faxed over the DPOA paperwork to Tati at [facility]; LESLIE did not see copies in the chart of pt medical cards.
--- NOTE | 2021-02-02 14:10 | NUR ---
Transition Record was faxed to follow-up provider with the following elements: Reason for admission, procedures, tests, principal diagnosis, pending studies, patient instructions, 27/05 contact information for unit, phone number to obtain pending test results, plan for follow-up care, physician follow-up, advanced directive information, and medication list with dose, duration and instructions. This information was included in the following documents: History and physical, lab results, study results, progress notes, social work planning form, DC instruction form, patient visit summary, and medication reconciliation form. Date & time record faxed: 02/01/21 2332 Record faxed to: Venita Ramirez [phone] Record discussed with/ report given to: Codi SHEPHERD at [facility]
== END 2021-02-02 13:00 | DRG 56 ==
LOC: GEROPSY 11:50
PROVIDERS: ADMIT Psychiatry & Neurology Psychiatry; ATTEND Psychiatry & Neurology Psychiatry
DX: G30.9 Alzheimer's disease, unspecified (principal); F01.51 Vascular dementia, unspecified severity, with behavioral disturbance; N17.0 Acute kidney failure with tubular necrosis; N18.30 Chronic kidney disease, stage 3 unspecified; F02.81 Dementia in other diseases classified elsewhere, unspecified severity, with behavioral disturbance; F41.9 Anxiety disorder, unspecified; E55.9 Vitamin D deficiency, unspecified; E78.5 Hyperlipidemia, unspecified; F32.9 Major depressive disorder, single episode, unspecified; F63.9 Impulse disorder, unspecified; I12.9 Hypertensive chronic kidney disease with stage 1 through stage 4 chronic kidney disease, or unspecified chronic kidney disease; I35.9 Nonrheumatic aortic valve disorder, unspecified; K21.9 Gastro-esophageal reflux disease without esophagitis; M40.209 Unspecified kyphosis, site unspecified; Z66 Do not resuscitate; Z79.899 Other long term (current) drug therapy; Z80.0 Family history of malignant neoplasm of digestive organs; Z82.3 Family history of stroke; Z87.891 Personal history of nicotine dependence; Z88.8 Allergy status to other drugs, medicaments and biological substances; Z20.822 Contact with and (suspected) exposure to COVID-19; Z90.49 Acquired absence of other specified parts of digestive tract; Z88.0 Allergy status to penicillin
CPT/HCPCS: 36415; 70450; 80053; 83540; 83550; 84436; 84480; 85025; U0003; U0005; 97110; 97116; 97530; 97535